=== PATIENT | male | born 1975 | race Caucasian/White ===

== ENCOUNTER 2020-01-06 21:53 | Emergency (ER) | payer MEDICARE, SELFPAY ==
--- NOTE | 2020-01-06 21:57 | XR_ITS ---
WS: [id number] Portable AP upright chest, 01/06/2020 Clinical Data: cough Comparison: Portable chest, 11/15/2017. Findings: No nodules, masses or effusions are seen. The heart is normal. The pulmonary vascularity is not increased. No pneumonia or pneumothorax is seen. XR/XR chest 1V portable [id number] Impression: Negative chest.
[2020-01-06 22:07] VITALS: BP 174/93; PULSE 107; RESP 18; TEMP 37.3; O2SAT 97; BMI 36.5
[2020-01-06 22:31] LABS: Basophils % 0.6 %; Eosinophils # 0.2 10^3/uL (0.0-0.8); Eosinophils % 3.3 %; Hemoglobin 14.2 g/dL (11.7-16.6); Lymphocytes # 1.6 10^3/uL (0.8-4.8); Lymphocytes % 31.5 %; Mean Corpuscular Hemoglobin 29.3 pg (28.0-34.0); Mean Corpuscular Volume 88.7 fL (80-94); Mean Platelet Volume 9.3 fL (7.4-10.4); Monocytes # 0.5 10^3/uL (0.2-0.9); Monocytes % 10.3 %; Neutrophils # 2.8 10^3/uL (1.8-7.7); Neutrophils % 54.1 %; Nucleated Red Blood Cells % 0 %; Platelet Count 165 10^3/cmm (130-400); Red Blood Count 4.85 10^6/uL (4.1-5.3); Red Cell Distribution Width 12.5 % (12.1-15.1); White Blood Count 5.2 10^3/uL (4.0-10.0)
[2020-01-06 23:01] LABS: Alanine Aminotransferase 30 U/L (0-41); Albumin Level 3.9 g/dL (3.5-5.2); Alkaline Phosphatase 88 IU/L (40-130); Anion Gap 16.5 (5-19); Aspartate Amino Transferase 23 U/L (0-40); Blood Urea Nitrogen 13 mg/dL (6-20); Calcium 9.8 mg/dL (8.5-10.5); Carbon Dioxide 26 mmol/L (22-29); Chloride 97 mmol/L (98-107); Glomerular Filtration Rate 104.5 mL/min (90-130); Glucose 279 mg/dL (65-115); NT Pro B Type Natriuretic Pept 25 pg/mL (0-125); Osmolality Calculated 288 mOsm/kg (285-295); Potassium 3.5 mmol/L (3.5-5.1); Sodium 136 mmol/L (136-145); Total Bilirubin 0.6 mg/dL (0.15-1.2); Total Protein 7.9 g/dL (6.6-8.7)
--- NOTE | 2020-01-07 01:01 | ED_ITS ---
Entered by Jie Santizo, acting as scribe for Lenny Navarro MD HPI - SOB/Dyspnea General: Chief Complaint: Shortness of Breath/Dyspnea Stated Complaint: coughing/feels like drowning Time Seen by Provider: 01/07/20 00:54 Source: patient Mode of arrival: ambulatory Limitations: no limitations History of Present Illness: HPI Narrative: 44 yo m came to the er pov for coughing and short of breath. Onset was 4 days ago. Pt states that he has MS. Pt said that he has a productive cough since monday last week. He denies any fevers. States he has had some chest pain from coughing. He has a history of COPD and states he gets bronchitis often. He is in no distress here. elicited complaint: shortness of breath and cough Timing: intermittent Severity: mild Associated symptoms: Reports chest congestion and cough; Deny abdominal pain, chest pain, fever(s), nausea or vomiting Related Data: Home oxygen amount: none Review of Systems General: Reports: other (negative unless marked) Const: Denies: fever, chills, body aches or change in appetite Eyes: Denies: blurry vision or eye discomfort ENMT: Denies: throat pain or dental pain Card: Denies: chest pain Resp: Reports: productive cough and chest congestion GI: Denies: abdominal pain, nausea, vomiting or diarrhea : Denies: painful urination Musc: Denies: neck pain or back pain Skin/Breast: Denies: rash Neuro: Denies: headache Psych: Denies: depression Jared/Lymph: Denies: easy bruising All/Imm: Denies: hives PFSH ED PFSH: Social History (Updated 11/01/19 @ 13:07 by Yamila Menon RN) Smoking and tobacco status: never smoked Alcohol intake: current Alcohol intake frequency: holidays/special occasions only Current occupational status: disabled Course Vital Signs: Vital signs: Vital Signs Temperature 98.7 F 01/07/20 01:14 Pulse Rate 98 01/07/20 01:33 Respiratory Rate 20 H 01/07/20 01:33 Blood Pressure 174/93 01/06/20 22:07 Pulse Oximetry 95 01/07/20 01:33 MDM - SOB/Dyspnea MDM Narrative: Medical decision making narrative: Robby presents here with cough and congestion is likely bronchitis. Patient has no fever and he is in no distress here. Patient's x-ray here shows no pneumonia. Patient's lab work here is normal he is stable for discharge. Patient is to use albuterol inhaler and will put him on a 5-day course of steroids and Keflex. Lab Data: Labs: Lab Results 01/06/20 01/06/20 Range/Units 22:24 22:24 WBC 5.2 (4.0-10.0) 10^3/ uL RBC 4.85 (4.1-5.3) 10^6/u L Hgb 14.2 (11.7-16.6) g/dL Hct 43.0 (42.0-52.0) % MCV 88.7 (80-94) fL MCH 29.3 (28.0-34.0) pg MCHC 33.0 (30.0-36.0) g/dL RDW 12.5 (12.1-15.1) % Plt Count 165 (130-400) 10^3/c mm MPV 9.3 (7.4-10.4) fL Neut % (Auto) 54.1 % Lymph % (Auto) 31.5 % Storey % (Auto) 10.3 % Eos % (Auto) 3.3 % Baso % (Auto) 0.6 % Neut # (Auto) 2.8 (1.8-7.7) 10^3/u L Lymph # (Auto) 1.6 (0.8-4.8) 10^3/u L Storey # (Auto) 0.5 (0.2-0.9) 10^3/u L Eos # (Auto) 0.2 (0.0-0.8) 10^3/u L Baso # (Auto) 0.0 (0.0-0.1) 10^3/u L Nucleated RBC % (a uto) 0 % Nucleated RBCs # 0.0 /100WBC Sodium 136 (136-145) mmol/L Potassium 3.5 (3.5-5.1) mmol/L Chloride 97 L (98-107) mmol/L Carbon Dioxide 26 (22-29) mmol/L Anion Gap 16.5 (5-19) BUN 13 (6-20) mg/dL Creatinine 0.8 (0.7-1.2) mg/dL GFR Calculation 104.5 (90-130) mL/min Glucose 279 H (65-115) mg/dL Calculated Osmolal ity 288 (285-295) mOsm/k g Calcium 9.8 (8.5-10.5) mg/dL Total Bilirubin 0.6 (0.15-1.2) mg/dL AST 23 (0-40) U/L ALT 30 (0-41) U/L Alkaline Phosphata se 88 (40-130) IU/L NT-Pro-B Natriuret Pep 25 (0-125) pg/mL Total Protein 7.9 (6.6-8.7) g/dL Albumin 3.9 (3.5-5.2) g/dL Globulin 4.0 (1.3-4.6) g/dL Imaging Data^: CXR: Attestation: I personally reviewed and interpreted this imaging study as follows: My impression: no acute abnormality Discharge Plan Discharge Patient Disposition: Home, Self-Care Clinical Impression: Bronchitis Condition: Stable Prescriptions: New Keflex 500 mg capsule 500 mg PO Q6H 7 Days Qty: 28 RF: 0 prednisone 50 mg tablet 50 mg PO DAILY Qty: 5 RF: 0 EC-Naprosyn 500 mg tablet,delayed release (DR/EC) 500 mg PO BID PRN (Reason: pain) Qty: 20 RF: 0 No Action metformin 500 mg tablet 500 mg PO BID RF: 0 Discharge Orders: Discharge Order (Routine); Ordered 01/07/20 Ordered By: Lenny Navarro Referrals: Yasmeen Jaimes DO [Primary Care Provider] - 4-7 days Discharge Diet: Advance as tolerated Discharge Activity: Resume usual activity Patient Instructions: Acute Bronchitis (ED) Discharge Date/Time: 01/07/20 01:34 Coding Level of Care Code ED Pipeline Inspector for Chg Fwd The documentation recorded by the Sukhdev gutierrez Stephanie Lyn, accurately reflects the service I personally performed and the decisions made by , Lenny Navarro MD
[2020-01-07 01:14] VITALS: PULSE 100; RESP 20; TEMP 37.1; O2SAT 95
[2020-01-07] MEDS: predniSONE 20 mg Tablet 60 MG PO (01:16)
[2020-01-07] MEDS: ipratropium-albuterol 3 mL Neb INHALATION (01:23)
[2020-01-07 01:25] VITALS: PULSE 110; RESP 20; O2SAT 94
[2020-01-07 01:28] VITALS: PULSE 115
[2020-01-07 01:33] VITALS: PULSE 98; RESP 20; O2SAT 95
== END 2020-01-07 01:34 | disposition home or self-care (01) ==
LOC: ER 01-07 01:10
PROVIDERS: Emergency Provider Emergency Medicine; Family Provider Family Medicine; PCP Family Medicine
DX: J44.9 Chronic obstructive pulmonary disease, unspecified (principal)
CPT/HCPCS: 12345; 36415; 71045; 80053; 83880; 85025; 94640; 99281; J7512

== ENCOUNTER 2020-01-08 05:03 | Inpatient (IN) | payer MEDICARE, SELFPAY ==
[2020-01-08] VITALS (11 sets, daily range): BP systolic 118–148; BP diastolic 64–76; PULSE 87–124; RESP 18–22; TEMP 36.7–37.9; O2SAT 93–96; BMI 36.5
--- NOTE | 2020-01-08 05:08 | ECG_ITS ---
Measurements Intervals Roann Rate: 122 P: 49 OH: 183 QRS: 6 QRSD: 98 T: 44 QT: 318 QTc: 455 SINUS TACHYCARDIA NONSPECIFIC T-WAVE ABNORMALITY ABNORMAL RHYTHM ECG Compared to ECG 11/15/2017 22:26:49 T-wave abnormality now present Electronically Signed On 01-08-2020 9:04:59 CDT by Gio Camejo M.D. [email or web address]
--- NOTE | 2020-01-08 05:08 | XRR_ITS ---
PROCEDURE INFORMATION: Exam: XR Chest, 1 View Exam date and time: 01/08/2020 5:45 AM Age: 44 years old Clinical indication: Cough and shortness of breath; Additional info: Cough, SOB chest pain several days TECHNIQUE: Imaging protocol: XR of the chest Views: Frontal portable upright view of the chest. COMPARISON: CR XR chest 1V portable [id number] 01/06/2020 10:23 PM FINDINGS: Lungs: The pulmonary vasculature remains congested. The lungs are otherwise peripherally clear bilaterally. Pleural space: No pleural effusion. No pneumothorax. Heart/Mediastinum: The heart is normal in size and contour. Mediastinum: Stable. Bones/joints: Stable. XR/XR chest 1V portable [id number] IMPRESSION: Persistent pulmonary vascular congestion.
--- NOTE | 2020-01-08 05:13 | W.ED.SOB ---
Documented by User: Lenny Navarro MD 01/08/20 05:15 HPI - SOB/Dyspnea General: Chief Complaint: Shortness of Breath/Dyspnea Stated Complaint: SOB Time Seen by Provider: 01/08/20 05:05 Source: patient and EMS Mode of arrival: EMS History of Present Illness: HPI Narrative: Patient is a 44-year-old male has a history of MS along with asthma. Patient has had increasing cough that is nonproductive over the last week. Patient seen here yesterday and has not been able to fill any of his medicines that were prescribed. Patient given breathing treatment in route. He denies any fevers. He does have shortness of breath. He denies any pain. Patient denies any worsening or improving factors. MD elicited complaint: cough Pertinent past history: asthma Onset (ago): day(s) Timing: constant Exacerbating factors: nothing Relieving factors: nothing Known history of: asthma Associated symptoms: Deny abdominal pain, chest pain, fever(s), nausea or vomiting Review of Systems Const: Denies: fever, chills, body aches or change in appetite Eyes: Denies: blurry vision or eye discomfort ENMT: Denies: throat pain or dental pain Card: Denies: chest pain Resp: Reports: shortness of breath and non-productive cough GI: Denies: abdominal pain, nausea, vomiting or diarrhea : Denies: painful urination Musc: Denies: neck pain or back pain Skin/Breast: Denies: rash Neuro: Denies: headache Psych: Denies: depression Jared/Lymph: Denies: easy bruising All/Imm: Denies: hives PFSH ED PFSH: Medical History (Updated 01/08/20 @ 11:47 by Keturah Arellano DO) Chronic pain syndrome Diabetes History of coronary artery disease HTN (hypertension) Hx of deep venous thrombosis Hx pulmonary embolism IBS (irritable bowel syndrome) Morbid obesity Obstructive sleep apnea PTSD (post-traumatic stress disorder) Surgical History (Updated 01/08/20 @ 11:47 by Keturah Arellano DO) History of back surgery S/P appendectomy S/P cholecystectomy S/P IVC filter S/P sinus surgery Social History Smoking and tobacco status: never smoked Alcohol intake: current Alcohol intake frequency: holidays/special occasions only Current occupational status: disabled Physical Exam Const: COMMON NORMALS: no apparent distress, oriented x3 and healthy appearing HENMT: COMMON NORMALS: normocephalic and head/scalp atraumatic HEAD & SCALP: normocephalic and atraumatic Eye: COMMON NORMALS: PERRL and EOMs intact bilaterally PUPIL: Yes PERRL Neck/C-Spine: COMMON NORMALS: full ROM and supple Chest: COMMONS NORMALS: inspection of chest normal and palpation of chest normal Resp: COMMON NORMALS: normal respiratory effort, no retractions and no use of accessory muscles AUSCULTATION: wheezes Cardio: COMMON NORMALS: regular rate, regular rhythm and no murmurs RATE: regular rate RHYTHM: regular rhythm GI: COMMON NORMALS: normal to inspection, nondistended, normoactive bowel sounds, soft to palpation, non-tender and no masses PALPATION: Yes soft Extremity: COMMON NORMALS: normal to inspection and full ROM Neuro: COMMON NORMALS: oriented x3, moves all extremities and no focal motor deficits Psych: COMMON NORMALS: mental status grossly normal, thought process normal and cooperative THOUGHT PROCESS: normal thought process Skin: COMMON NORMALS: no rashes or lesions noted and no wounds GENERAL SKIN EXAM: no rashes or lesions noted Course Vital Signs: Vital signs: Vital Signs Temperature 100.3 F H 01/08/20 05:06 Pulse Rate 101 H 01/08/20 12:27 Respiratory Rate 20 H 01/08/20 12:27 Blood Pressure 118/73 01/08/20 12:27 Pulse Oximetry 96 01/08/20 12:27 MDM - SOB/Dyspnea Lab Data: Labs: Lab Results 01/08/20 01/08/20 01/08/20 Range/Units 04:45 04:45 04:45 WBC 6.3 (4.0-10.0) 10^3/ uL RBC 4.73 (4.1-5.3) 10^6/u L Hgb 13.7 (11.7-16.6) g/dL Hct 41.5 L (42.0-52.0) % MCV 87.7 (80-94) fL MCH 29.0 (28.0-34.0) pg MCHC 33.0 (30.0-36.0) g/dL RDW 12.3 (12.1-15.1) % Plt Count 178 (130-400) 10^3/c mm MPV 10.0 (7.4-10.4) fL Neut % (Auto) 53.6 % Lymph % (Auto) 35.7 % Wallace % (Auto) 9.4 % Eos % (Auto) 0.5 % Baso % (Auto) 0.6 % Neut # (Auto) 3.4 (1.8-7.7) 10^3/u L Lymph # (Auto) 2.2 (0.8-4.8) 10^3/u L Wallace # (Auto) 0.6 (0.2-0.9) 10^3/u L Eos # (Auto) 0.0 (0.0-0.8) 10^3/u L Baso # (Auto) 0.0 (0.0-0.1) 10^3/u L Nucleated RBC % (a uto) 0 % Nucleated RBCs # 0.0 /100WBC Sodium 131 L (136-145) mmol/L Potassium 3.4 L (3.5-5.1) mmol/L Chloride 93 L (98-107) mmol/L Carbon Dioxide 25 (22-29) mmol/L Anion Gap 16.4 (5-19) BUN 18 (6-20) mg/dL Creatinine 1.0 (0.7-1.2) mg/dL GFR Calculation 80.8 L (90-130) mL/min Glucose 303 H (65-115) mg/dL Estimat Average Gl ucose 266 Hemoglobin A1c 10.9 H (4.0-6.0) % Calculated Osmolal ity 280 L (285-295) mOsm/k g Calcium 9.4 (8.5-10.5) mg/dL Total Bilirubin 0.6 (0.15-1.2) mg/dL AST 21 (0-40) U/L ALT 25 (0-41) U/L Alkaline Phosphata se 81 (40-130) IU/L NT-Pro-B Natriuret Pep 130 H (0-125) pg/mL Total Protein 7.7 (6.6-8.7) g/dL Albumin 3.8 (3.5-5.2) g/dL Globulin 3.9 (1.3-4.6) g/dL TSH (0.27-4.20) uIU/ mL Influenza Type A A g (Negative) POC Influenza B Ag (Negative) 01/08/20 01/08/20 Range/Units 04:45 06:10 WBC (4.0-10.0) 10^3/ uL RBC (4.1-5.3) 10^6/u L Hgb (11.7-16.6) g/dL Hct (42.0-52.0) % MCV (80-94) fL MCH (28.0-34.0) pg MCHC (30.0-36.0) g/dL RDW (12.1-15.1) % Plt Count (130-400) 10^3/c mm MPV (7.4-10.4) fL Neut % (Auto) % Lymph % (Auto) % Wallace % (Auto) % Eos % (Auto) % Baso % (Auto) % Neut # (Auto) (1.8-7.7) 10^3/u L Lymph # (Auto) (0.8-4.8) 10^3/u L Wallace # (Auto) (0.2-0.9) 10^3/u L Eos # (Auto) (0.0-0.8) 10^3/u L Baso # (Auto) (0.0-0.1) 10^3/u L Nucleated RBC % (a uto) % Nucleated RBCs # /100WBC Sodium (136-145) mmol/L Potassium (3.5-5.1) mmol/L Chloride (98-107) mmol/L Carbon Dioxide (22-29) mmol/L Anion Gap (5-19) BUN (6-20) mg/dL Creatinine (0.7-1.2) mg/dL GFR Calculation (90-130) mL/min Glucose (65-115) mg/dL Estimat Average Gl ucose Hemoglobin A1c (4.0-6.0) % Calculated Osmolal ity (285-295) mOsm/k g Calcium (8.5-10.5) mg/dL Total Bilirubin (0.15-1.2) mg/dL AST (0-40) U/L ALT (0-41) U/L Alkaline Phosphata se (40-130) IU/L NT-Pro-B Natriuret Pep (0-125) pg/mL Total Protein (6.6-8.7) g/dL Albumin (3.5-5.2) g/dL Globulin (1.3-4.6) g/dL TSH 0.95 (0.27-4.20) uIU/ mL Influenza Type A A g Negative (Negative) POC Influenza B Ag Negative (Negative) Discharge Plan Discharge Patient Disposition: Admitted As Inpatient Admit Provider: Keturah Arellano Referrals: Yasmeen Jaimes DO [Primary Care Provider] - Discharge Date/Time: 01/08/20 13:00 Sign Out Sign Out Data: Patient Sign Out occurred on 01/08/20 at 06:03. Patient's care was discussed, and care was transferred from to Errol Lozano DO. Coding Level of Care Code ED Decorative Cutting Machine Tender for Chg Fwd Exam Comprehensive Documented by User: Errol Lozano DO 01/08/20 14:48 HPI - SOB/Dyspnea General: Chief Complaint: Shortness of Breath/Dyspnea Stated Complaint: SOB Time Seen by Provider: 01/08/20 05:05 PFSH ED PFSH: Medical History (Updated 01/08/20 @ 11:47 by Keturah Arellano DO) Chronic pain syndrome Diabetes History of coronary artery disease HTN (hypertension) Hx of deep venous thrombosis Hx pulmonary embolism IBS (irritable bowel syndrome) Morbid obesity Obstructive sleep apnea PTSD (post-traumatic stress disorder) Surgical History (Updated 01/08/20 @ 11:47 by Keturah Arellano DO) History of back surgery S/P appendectomy S/P cholecystectomy S/P IVC filter S/P sinus surgery Social History Smoking and tobacco status: never smoked Alcohol intake: current Alcohol intake frequency: holidays/special occasions only Current occupational status: disabled Course ED course: Patient continue requires oxygen supplementation is mildly tachycardic. He has diminished breath sounds throughout but not a lot of wheezing at this time. Chest x-ray did not show any evidence of pneumonia. He is running little bit of fever as well. I would recommend that we hospitalize the patient monitor because of his hypoxemia treat for asthma empirically may be best to treat for pneumonia as well flu swabs were negative but a question of false negative we will discussed with hospitalist they will admit. Vital Signs: Vital signs: Vital Signs Temperature 100.3 F H 01/08/20 05:06 Pulse Rate 101 H 01/08/20 12:27 Respiratory Rate 20 H 01/08/20 12:27 Blood Pressure 118/73 01/08/20 12:27 Pulse Oximetry 96 01/08/20 12:27 MDM - SOB/Dyspnea Lab Data: Attestation: I reviewed the patient's lab results. Labs: Lab Results 01/08/20 01/08/20 01/08/20 Range/Units 04:45 04:45 04:45 WBC 6.3 (4.0-10.0) 10^3/ uL RBC 4.73 (4.1-5.3) 10^6/u L Hgb 13.7 (11.7-16.6) g/dL Hct 41.5 L (42.0-52.0) % MCV 87.7 (80-94) fL MCH 29.0 (28.0-34.0) pg MCHC 33.0 (30.0-36.0) g/dL RDW 12.3 (12.1-15.1) % Plt Count 178 (130-400) 10^3/c mm MPV 10.0 (7.4-10.4) fL Neut % (Auto) 53.6 % Lymph % (Auto) 35.7 % Wallace % (Auto) 9.4 % Eos % (Auto) 0.5 % Baso % (Auto) 0.6 % Neut # (Auto) 3.4 (1.8-7.7) 10^3/u L Lymph # (Auto) 2.2 (0.8-4.8) 10^3/u L Wallace # (Auto) 0.6 (0.2-0.9) 10^3/u L Eos # (Auto) 0.0 (0.0-0.8) 10^3/u L Baso # (Auto) 0.0 (0.0-0.1) 10^3/u L Nucleated RBC % (a uto) 0 % Nucleated RBCs # 0.0 /100WBC Sodium 131 L (136-145) mmol/L Potassium 3.4 L (3.5-5.1) mmol/L Chloride 93 L (98-107) mmol/L Carbon Dioxide 25 (22-29) mmol/L Anion Gap 16.4 (5-19) BUN 18 (6-20) mg/dL Creatinine 1.0 (0.7-1.2) mg/dL GFR Calculation 80.8 L (90-130) mL/min Glucose 303 H (65-115) mg/dL Estimat Average Gl ucose 266 Hemoglobin A1c 10.9 H (4.0-6.0) % Calculated Osmolal ity 280 L (285-295) mOsm/k g Calcium 9.4 (8.5-10.5) mg/dL Total Bilirubin 0.6 (0.15-1.2) mg/dL AST 21 (0-40) U/L ALT 25 (0-41) U/L Alkaline Phosphata se 81 (40-130) IU/L NT-Pro-B Natriuret Pep 130 H (0-125) pg/mL Total Protein 7.7 (6.6-8.7) g/dL Albumin 3.8 (3.5-5.2) g/dL Globulin 3.9 (1.3-4.6) g/dL TSH (0.27-4.20) uIU/ mL Influenza Type A A g (Negative) POC Influenza B Ag (Negative) 01/08/20 01/08/20 Range/Units 04:45 06:10 WBC (4.0-10.0) 10^3/ uL RBC (4.1-5.3) 10^6/u L Hgb (11.7-16.6) g/dL Hct (42.0-52.0) % MCV (80-94) fL MCH (28.0-34.0) pg MCHC (30.0-36.0) g/dL RDW (12.1-15.1) % Plt Count (130-400) 10^3/c mm MPV (7.4-10.4) fL Neut % (Auto) % Lymph % (Auto) % Wallace % (Auto) % Eos % (Auto) % Baso % (Auto) % Neut # (Auto) (1.8-7.7) 10^3/u L Lymph # (Auto) (0.8-4.8) 10^3/u L Wallace # (Auto) (0.2-0.9) 10^3/u L Eos # (Auto) (0.0-0.8) 10^3/u L Baso # (Auto) (0.0-0.1) 10^3/u L Nucleated RBC % (a uto) % Nucleated RBCs # /100WBC Sodium (136-145) mmol/L Potassium (3.5-5.1) mmol/L Chloride (98-107) mmol/L Carbon Dioxide (22-29) mmol/L Anion Gap (5-19) BUN (6-20) mg/dL Creatinine (0.7-1.2) mg/dL GFR Calculation (90-130) mL/min Glucose (65-115) mg/dL Estimat Average Gl ucose Hemoglobin A1c (4.0-6.0) % Calculated Osmolal ity (285-295) mOsm/k g Calcium (8.5-10.5) mg/dL Total Bilirubin (0.15-1.2) mg/dL AST (0-40) U/L ALT (0-41) U/L Alkaline Phosphata se (40-130) IU/L NT-Pro-B Natriuret Pep (0-125) pg/mL Total Protein (6.6-8.7) g/dL Albumin (3.5-5.2) g/dL Globulin (1.3-4.6) g/dL TSH 0.95 (0.27-4.20) uIU/ mL Influenza Type A A g Negative (Negative) POC Influenza B Ag Negative (Negative) Discharge Plan Discharge Patient Disposition: Admitted As Inpatient Admit Provider: Keturah Arellano Referrals: Yasmeen Jaimes DO [Primary Care Provider] - Discharge Date/Time: 01/08/20 13:00 Sign Out Sign Out Data: Patient Sign Out occurred on 01/08/20 at 06:03. Patient's care was discussed, and care was transferred from to Errol Lozano DO. Coding Level of Care Code ED Decorative Cutting Machine Tender for Chg Fwd Exam Comprehensive
[2020-01-08 05:27] LABS: Basophils % 0.6 %; Eosinophils % 0.5 %; Hematocrit 41.5 % (42.0-52.0); Hemoglobin 13.7 g/dL (11.7-16.6); Lymphocytes # 2.2 10^3/uL (0.8-4.8); Lymphocytes % 35.7 %; Mean Corpuscular Volume 87.7 fL (80-94); Monocytes # 0.6 10^3/uL (0.2-0.9); Monocytes % 9.4 %; Neutrophils # 3.4 10^3/uL (1.8-7.7); Neutrophils % 53.6 %; Nucleated Red Blood Cells % 0 %; Platelet Count 178 10^3/cmm (130-400); Red Blood Count 4.73 10^6/uL (4.1-5.3); Red Cell Distribution Width 12.3 % (12.1-15.1); White Blood Count 6.3 10^3/uL (4.0-10.0)
[2020-01-08 05:55] LABS: Alanine Aminotransferase 25 U/L (0-41); Albumin Level 3.8 g/dL (3.5-5.2); Alkaline Phosphatase 81 IU/L (40-130); Anion Gap 16.4 (5-19); Aspartate Amino Transferase 21 U/L (0-40); Blood Urea Nitrogen 18 mg/dL (6-20); Calcium 9.4 mg/dL (8.5-10.5); Carbon Dioxide 25 mmol/L (22-29); Chloride 93 mmol/L (98-107); Globulin 3.9 g/dL (1.3-4.6); Glomerular Filtration Rate 80.8 mL/min (90-130); Glucose 303 mg/dL (65-115); NT Pro B Type Natriuretic Pept 130 pg/mL (0-125); Osmolality Calculated 280 mOsm/kg (285-295); Potassium 3.4 mmol/L (3.5-5.1); Sodium 131 mmol/L (136-145); Total Bilirubin 0.6 mg/dL (0.15-1.2); Total Protein 7.7 g/dL (6.6-8.7)
[2020-01-08] MEDS: ipratropium-albuterol 3 mL Neb INHALATION ×2 (05:56→12:21)
[2020-01-08 06:38] LABS: Influenza A by IFA Negative (Negative); Influenza B by IFA Negative (Negative)
--- NOTE | 2020-01-08 07:18 | CT_ITS ---
WS: [id number] CTA OF THE CHEST WITH PULMONARY EMBOLISM PROTOCOL TECHNIQUE: High-resolution contrast enhanced CTA of the chest with coronal and sagittal reformatted i mages with pulmonary embolism protocol. MIP images are also reviewed. Somewhat suboptimal contrast madelyn mikaela. CLINICAL INFORMATION: tachycardia, dyspnea, hypoxia COMPARISON: None. DLP: 1763.[address] scans at [facility] use at least one of these dose optimization techniques: automat ed exposure control; mA and/or kV adjustment per patient size (includes targeted exams where dose is matched to clinical indication); or iterative reconstruction. FINDINGS: Proximal main pulmonary arteries are normal. Segmental and subsegmental pulmonary arteries appear pat ent. No visualized filling defects to indicate pulmonary embolus. Normal caliber thoracic aorta. Numerous anterior mediastinal lymph nodes not pathologically enlarged unchanged from previous. No hilar lymphadenopathy. No acute pulmonary infiltrates. Lungs are well aerated. No axillary lymphadenopathy. Hepatomegaly with diffuse fatty infiltration of the liver. Adrenal glands are normal. Attempted Errol Lozano DO at 01/08/2020 8:[address]/CT angio chest PE protcl [id number] IMPRESSION: 1. No evidence for pulmonary embolus. 2. Normal caliber thoracic aorta. 3. No acute pulmonary infiltrates. Lungs well aerated. 4. Hepatomegaly with diffuse infiltration of the liver.
[2020-01-08] MEDS: iohexol 350 mg/mL 100 mL Btl IV ×2 (08:13→08:14)
[2020-01-08] MEDS: piperacillin-tazobactam 3.375 GM in sodium chloride 0.9% (plus) 50 ML IV (09:56)
[2020-01-08] MEDS: morphine 4 mg/mL SDV 1 mL 2 MG IVP (11:07)
--- NOTE | 2020-01-08 11:42 | P.HP_ITS ---
Providers/Chief Complaint Primary Care Provider: Yasmeen Jaimes DO Chief Complaint: SOB History of Present Illness Robby Ramirez is a 44 year old male that presented to the emergency department today for increasing shortness of breath and continued cough. Reported that he has been having fever for several days. Increased cough for the past 4 days. Reports thick sputum production, no hemoptysis. Denies any sick contacts. Patient reported that he is not been seen by his primary care provider in an extended period of time. Reported that the only medication that he takes occasionally is metformin. Denies wearing any oxygen at home. Has known obstructive sleep apnea but reports not wearing a CPAP Review of Systems Const: Denies: fever or chills Eyes: Denies: change in vision ENMT: Reports: nasal congestion Card: Denies: chest pain, palpitations or edema Resp: Reports: shortness of breath and productive cough; Denies: coughing up blood GI: Denies: abdominal pain, nausea, vomiting, diarrhea, constipation, blood in stool or black tarry stool : Denies: painful urination or blood in urine Musc: Denies: extremity pain or muscle cramps Skin/Breast: Denies: rash or new lesion Neuro: Denies: headache or dizziness Psych: Denies: anxiety or depression Endo: Denies: excessive urination or hot flashes Jared/Lymph: Denies: easy bruising or easy bleeding Medications/Allergies Home Medications Medication Instructions Recorded Confirmed Last Taken Type No Known Home Medications 01/08/20 01/08/20 Unknown History Allergies Allergy/AdvReac Type Severity Reaction Status Date / Time chlorpromazine Allergy Unknown Unknown Verified 01/06/20 22:11 [From Thorazine] heparin Allergy Unknown Unknown Verified 01/06/20 22:11 olanzapine [From Zyprexa] Allergy Unknown Unknown Verified 01/06/20 22:11 phenytoin [From Dilantin] Allergy Unknown Unknown Verified 01/06/20 22:11 Sulfa (Sulfonamide Allergy Unknown Unknown Verified 01/06/20 22:11 Antibiotics) warfarin [From Coumadin] Allergy Unknown Unknown Verified 01/06/20 22:11 PFSH Acute PFSH: Medical History (Updated 01/08/20 @ 11:47 by Keturah Arellano DO) Chronic pain syndrome Diabetes History of coronary artery disease HTN (hypertension) Hx of deep venous thrombosis Hx pulmonary embolism IBS (irritable bowel syndrome) Morbid obesity Obstructive sleep apnea PTSD (post-traumatic stress disorder) Surgical History (Updated 01/08/20 @ 11:47 by Keturah Arellano DO) History of back surgery S/P appendectomy S/P cholecystectomy S/P IVC filter S/P sinus surgery Social History Smoking and tobacco status: never smoked Alcohol intake: current Alcohol intake frequency: holidays/special occasions only Current occupational status: disabled Supplemental [facility] Information: Family history unknown, adopted Vitals/I&O/Wt Last Vital Signs Temp 100.3 F H 01/08/20 05:06 Pulse 124 H 01/08/20 06:00 Resp 20 H 01/08/20 10:53 BP 133/70 01/08/20 05:06 Pulse Ox 93 01/08/20 10:53 Weight last 48 hrs Weight 136.078 kg Physical Exam Const: COMMON NORMALS: oriented x3 and alert GENERAL APPEARANCE: cooperative ORIENTATION/CONSCIOUSNESS: Yes awake, Yes oriented to person, Yes oriented to place and Yes oriented to time HENMT: COMMON NORMALS: normocephalic and head/scalp atraumatic HEAD & SCALP: normocephalic and atraumatic Eye: COMMON NORMALS: PERRL PUPIL: Yes PERRL Neck/C-Spine: COMMON NORMALS: supple GENERAL: Yes normal visual inspection Resp: OTHER: Diminished breath sounds bilaterally, coarse breath sounds bilaterally Cardio: COMMON NORMALS: regular rhythm and no murmurs RATE: tachycardic RHYTHM: regular rhythm GI: COMMON NORMALS: soft to palpation and non-tender INSPECTION: No abdominal distension AUSCULTATION: Yes normoactive bowel sounds PALPATION: Yes soft Extremity: NARRATIVE EXTREMITY EXAM: Nonpitting edema in the lower extremities bilaterally, chronic venous stasis changes in the lower extremities bilaterally Neuro: COMMON NORMALS: oriented x3, CN's II-XII intact bilaterally, moves all extremities and no focal motor deficits SENSORIUM/ORIENTATION: Yes alert, Yes oriented to person, Yes oriented to place and Yes oriented to time SPEECH: speech normal Psych: COMMON NORMALS: mental status grossly normal Skin: COMMON NORMALS: no rashes or lesions noted GENERAL SKIN EXAM: no rashes or lesions noted Data : 01/08/20 04:45 01/08/20 04:45 Micro: Microbiology 01/08/20 09:40 Blood Culture - Preliminary Blood SPECIMEN COLLECTED 01/08/20 09:47 Blood Culture - Preliminary Blood SPECIMEN COLLECTED CTA Chest: Radiologist's impression: IMPRESSION: 1. No evidence for pulmonary embolus. 2. Normal caliber thoracic aorta. 3. No acute pulmonary infiltrates. Lungs well aerated. 4. Hepatomegaly with diffuse infiltration of the liver. CXR: I personally reviewed and interpreted this imaging study as follows: Radiologist's impression: IMPRESSION: Persistent pulmonary vascular congestion. A&P Assessment and plan (1) Asthma exacerbation: Due to concern for acute bronchitis Patient requiring supplemental oxygen, 3 L by nasal cannula at this time Placed on observation Wean oxygen as tolerated Patient has known obstructive sleep apnea and continues to be noncompliant with CPAP Oxygen per protocol, respiratory therapy to assess and treat, continue on doxycycline. Hold on prednisone at this time and monitor respiratory status closely Status: Acute Code(s): J45.901 - Unspecified asthma with (acute) exacerbation Additional A&P Information Concern for influenza with fever, tachycardia, tachypnea, negative chest x-ray. Influenza swab is negative, concerned that false negative results. We will go ahead and treat with Tamiflu 75 mg twice daily and continue to wean oxygen as tolerated. Obstructive sleep apnea: No longer compliant with CPAP Coronary artery disease: Nonobstructive according to patient report, he reports history of cardiac cath however no stent placement, noncompliant with all medications History of DVT and PE with a reported IVC filter: CTA of the chest negative for pulmonary embolism. Diabetes mellitus type 2, poorly controlled: Only taking metformin, will check h emoglobin A1c Reported history of multiple sclerosis: He stated he is followed by Dr. Cruz, neurology, no longer on any medications History of traumatic brain injury in 2009 DVT prophylaxis: Lovenox Diet: Carbohydrate consistent Full code Attestations Medical Necessity Statement*: Observation due to concern for acute bronchitis with hypoxia. Observation, expected stay less than 2 midnights Coding Level of Care Code Acute Lead Burner Helper for Tori Rey Diagnoses Asthma exacerbation J45.901
[2020-01-08 12:15] LABS: ABG PCO2 38.8 mmHg (35-45); ABG PH Result 7.35 (7.35-7.45); Alveolar-Arterial Oxygen Gradi 33.8 mmHg (5-10); Arterial Blood Gas Hematocrit 44.7 % (42-52); Base Excess ABG -3.9 mmol/L (-2.0-2.0); Blood Gas Allen Test Pos; Blood Gas LPM 4.5 %; Blood Gas Sample Site Radial, right; Blood Gas Sample Type Arterial; Carboxyhemoglobin 0.8 %THgb (0.4-20.1); HCO3 ABG 21.3 mmol/L (22-26); HGB O2 Sat 92.5 % (95-100); Ionized Calcium Level - ABG 1.1 mmol/L (1.1-1.4); Methemoglobin 0.2 % (0.4-1.5); Oxygen Device NC; Oxygen Saturation ABG 93.5; PO2 ABG 66.7 mmHg (80.0-100.0); Potassium Level - ABG 4.1 mmol/L (3.5-5.0); Total Hemoglobin 14.6 g/dL (14-18)
[2020-01-08] MEDS: budesonide 0.5 mg/2 mL Neb INHALATION (12:20)
[2020-01-08 12:41] LABS: Estmated Average Glucose 266; Hemoglobin A1C 10.9 % (4.0-6.0)
[2020-01-08 12:46] LABS: Thyroid Stimulating Hormone 0.95 uIU/mL (0.27-4.20)
[2020-01-08 15:00] LABS: Glucose Point of Care 475 mg/dL (70-110)
[2020-01-08] MEDS: sodium chloride 0.9% 1,000 ML 75 ML IV (15:14)
[2020-01-08 17:58] LABS: Glucose Point of Care 437 mg/dL (70-110)
[2020-01-08] MEDS: oseltamivir phosphate 75 mg Capsule PO (18:41)
[2020-01-08] MEDS: doxycycline 100 mg Tablet PO (18:41)
[2020-01-08] MEDS: insulin glargine 100 units/1 mL 10 UNIT SUBCUT (18:42)
--- NOTE | 2020-01-08 18:46 | PC.NURSE ---
pt alana sugar was 437 at 1745, dr maldonado informed and ordered 20 units of novolog and to give 10 units of lantus now. will pass on to next shift to check in 2 hours.
[2020-01-08] MEDS: HYDROcodone-acetaminophen 5-325 mg Tablet 1 TAB PO (20:01)
[2020-01-08 21:52] LABS: Glucose Point of Care 374 mg/dL (70-110)
[2020-01-09] VITALS: BP 133/76; PULSE 94; RESP 22; TEMP 36.9; O2SAT 93
[2020-01-09] MEDS: HYDROcodone-acetaminophen 5-325 mg Tablet 1 TAB PO (00:39)
[2020-01-09 00:55] LABS: Glucose Point of Care 353 mg/dL (70-110)
[2020-01-09 03:33] VITALS: BP 136/79; PULSE 86; RESP 22; TEMP 36.6; O2SAT 91
[2020-01-09] MEDS: sodium chloride 0.9% 1,000 ML 75 ML IV (04:50)
[2020-01-09 06:19] LABS: Hematocrit 38.1 % (42.0-52.0); Hemoglobin 12.7 g/dL (11.7-16.6); Lymphocytes # 1.2 10^3/uL (0.8-4.8); Lymphocytes % 19.9 %; Mean Corpuscular HGB Conc 33.3 g/dL (30.0-36.0); Mean Corpuscular Hemoglobin 29.3 pg (28.0-34.0); Mean Corpuscular Volume 87.8 fL (80-94); Mean Platelet Volume 9.5 fL (7.4-10.4); Monocytes # 0.7 10^3/uL (0.2-0.9); Monocytes % 11.4 %; Neutrophils % 68.4 %; Nucleated Red Blood Cells % 0 %; Platelet Count 158 10^3/cmm (130-400); Red Blood Count 4.34 10^6/uL (4.1-5.3); Red Cell Distribution Width 12.4 % (12.1-15.1); White Blood Count 5.9 10^3/uL (4.0-10.0)
[2020-01-09 06:34] LABS: Blood Urea Nitrogen 18 mg/dL (6-20); Calcium 8.9 mg/dL (8.5-10.5); Carbon Dioxide 22 mmol/L (22-29); Chloride 101 mmol/L (98-107); Glucose 329 mg/dL (65-115); Osmolality Calculated 291 mOsm/kg (285-295); Sodium 136 mmol/L (136-145)
[2020-01-09 07:42] LABS: Glucose Point of Care 308 mg/dL (70-110)
[2020-01-09 07:55] VITALS: BP 116/73; PULSE 81; RESP 22; TEMP 35.9; O2SAT 96
[2020-01-09] MEDS: doxycycline 100 mg Tablet PO (08:19)
[2020-01-09] MEDS: oseltamivir phosphate 75 mg Capsule PO (08:19)
--- NOTE | 2020-01-09 10:41 | PM.PN ---
Subjective Subjective: Interval history: Patient awake in bed at time of exam. Sitting at the edge of bed. Reported continued cough and shortness of breath. Reported productive cough Vitals/I&O/Wt Last Vital Signs Temp 96.7 F L 01/09/20 07:55 Pulse 81 01/09/20 07:55 Resp 22 H 01/09/20 07:55 BP 116/73 01/09/20 07:55 Pulse Ox 96 01/09/20 07:55 01/08/20 01/09/20 01/09/20 22:59 06:59 14:59 Intake Total 960 / 960 1960 / 2920 360 / 360 Output Total 1250 / 1250 Balance 960 / 960 710 / 1670 360 / 360 Weight last 48 hrs Weight 151.545 kg Weight 136.078 kg Physical Exam Const: COMMON NORMALS: oriented x3 and alert GENERAL APPEARANCE: cooperative ORIENTATION/CONSCIOUSNESS: Yes awake, Yes oriented to person, Yes oriented to place and Yes oriented to time HENMT: COMMON NORMALS: normocephalic and head/scalp atraumatic HEAD & SCALP: normocephalic and atraumatic Eye: COMMON NORMALS: PERRL PUPIL: Yes PERRL Neck/C-Spine: COMMON NORMALS: supple GENERAL: Yes normal visual inspection Resp: OTHER: Diminished breath sounds bilaterally with wheezing in the bases Cardio: COMMON NORMALS: regular rhythm and no murmurs RATE: tachycardic RHYTHM: regular rhythm GI: COMMON NORMALS: soft to palpation and non-tender INSPECTION: No abdominal distension AUSCULTATION: Yes normoactive bowel sounds PALPATION: Yes soft Extremity: NARRATIVE EXTREMITY EXAM: Nonpitting edema in the lower extremities bilaterally, chronic venous stasis changes in the lower extremities bilaterally Neuro: COMMON NORMALS: oriented x3, CN's II-XII intact bilaterally, moves all extremities and no focal motor deficits SENSORIUM/ORIENTATION: Yes alert, Yes oriented to person, Yes oriented to place and Yes oriented to time SPEECH: speech normal Psych: COMMON NORMALS: mental status grossly normal Skin: COMMON NORMALS: no rashes or lesions noted GENERAL SKIN EXAM: no rashes or lesions noted Data : 01/09/20 06:00 01/09/20 06:00 Micro: Microbiology 01/08/20 09:47 Blood Culture - Preliminary Blood NEGATIVE TO DATE 01/08/20 09:40 Blood Culture - Preliminary Blood NEGATIVE TO DATE A&P Assessment and plan (1) Asthma exacerbation: Respiratory therapy to assess and treat Oxygen per protocol, currently on 3 L by nasal cannula, will continue to wean as tolerated We will start on Solu-Medrol 60 mg every 6 hours x3 doses then transition to prednisone due to worsening wheezing on exam today Continue on doxycycline Status: Acute Code(s): J45.901 - Unspecified asthma with (acute) exacerbation Additional A&P Information Concern for influenza with fever, tachycardia, tachypnea, negative chest x-ray. Influenza swab is negative, concerned that false negative results. Continue treatment with Tamiflu 75 mg twice daily Obstructive sleep apnea: No longer compliant with CPAP Coronary artery disease: Nonobstructive according to patient report, he reports history of cardiac cath however no stent placement, noncompliant with all medications History of DVT and PE with a reported IVC filter: CTA of the chest negative for pulmonary embolism. Diabetes mellitus type 2, poorly controlled: A1c greater than 11. Started on Lantus, increased dose today and given additional dose this morning to control elevated blood sugars. Blood sugars will continue to be significantly elevated due to initiation of steroids due to above. Reported history of multiple sclerosis: He stated he is followed by Dr. Cruz, neurology, no longer on any medications History of traumatic brain injury in 2009 DVT prophylaxis: Lovenox Diet: Carbohydrate consistent Full code Attestations Medical Necessity Statement*: Patient requires continued hospitalization due to concern for oxygen requirements with concern for asthma exacerbation, concern for influenza. Change to inpatient admission Coding Level of Care Code Acute Employee Communications Specialist for Tori Rey Diagnoses Asthma exacerbation J45.901
[2020-01-09 11:05] LABS: Glucose Point of Care 325 mg/dL (70-110)
[2020-01-09 11:48] VITALS: BP 119/73; PULSE 88; RESP 22; TEMP 36.8; O2SAT 93
[2020-01-09] MEDS: insulin glargine 100 units/1 mL 10 UNIT SUBCUT (11:55)
[2020-01-09] MEDS: enoxaparin 40 mg/0.4 mL Syringe SUBCUT (11:57)
--- NOTE | 2020-01-09 12:01 | PC.CHAP ---
Pastoral Care Encounter/Spiritual Assessment Type of Contact [] Declined radiation engineer visit [] Patient/Family/Request visit [] Outpatient visit [] Follow-up visit [] Physician referral [] Code/Alert [x] Routine visit [] Staff referral [] Actively dying [] Patient sleeping [] Family support [] [] Out of room [] Palliative care [] [] Receiving care in room [] Pre-surgical visit [] Trauma [] Long length of stay [] ICU visit [] Other: Relational/Emotional Strength [] Patient feels connected with others/family/visitors/staff [x] Distress [] Loneliness/isolation [] Abandonment Spirituality of Patient [] Person of Heena [] Attends Evangelical of their Heena [] Believes in Prayer [] Reads Bible or Zoroastrianism materials [x] There are Spiritual issues to be addressed Thinner Sprayer Interventions [x] Prayer [x] Active listening [x] Non-anxious presence x[x] Spiritual/emotional support [] Crisis/trauma care [x] Spiritual counseling [] Bereavement support [] Provided bereavement packet [] Provided Bible/devotional materials [] Provided toy/stuffed animal, coloring book to patient or family member [] Provided Communion [] Anointing/[place] [] Salvation [] Completed spiritual assessment [] Other: Impact on Illness or Injury [] Angry [] Fearful [] Anxious [] Often cries [] Exhaustion [] Unable to work [] Unable to attend gnosticist [] Unable to walk/stand [] Unable to read [] Unable to drive [] Unable to eat/drink [] Unable to sleep [] Unable to be with family [] Patient intubated [x] Other: Summary Patient expressed that he is primarily wheelchair bound and relies upon his friends for transportation needs. Time spent with patient 5 minutes
[2020-01-09 13:26] VITALS: BP 136/72; PULSE 83; RESP 32; TEMP 36.7; O2SAT 93
[2020-01-09 13:26] LABS: Glucose Point of Care 306 mg/dL (70-110)
--- NOTE | 2020-01-09 13:29 | XR_ITS ---
WS: [id number] Chest 2 views, AP and lateral, 01/09/2020 Clinical Data: shortness of breath Comparison: Portable chest, 01/08/2020. Findings: No nodules, masses or effusions are seen. The heart is slightly enlarged. The pulmonary vas cularity is not increased. No pneumonia or pneumothorax is seen. Monitor leads on the chest wall. XR/XR chest 2V* [id number] Impression: Cardiomegaly.
[2020-01-09 14:27] VITALS: BP 136/72; PULSE 83; RESP 32; TEMP 36.7; O2SAT 93
== END 2020-01-09 14:37 | disposition home or self-care (01) | DRG 203 ==
LOC: ER 12:28 → MEDSURG 12:40
PROVIDERS: Emergency Medicine; Admitting Provider Family Medicine; Emergency Provider Family Medicine; Family Provider Family Medicine; PCP Family Medicine; Visit Provider Family Medicine
DX: J45.901 Unspecified asthma with (acute) exacerbation (principal); G47.33 Obstructive sleep apnea (adult) (pediatric); I25.10 Atherosclerotic heart disease of native coronary artery without angina pectoris; E11.65 Type 2 diabetes mellitus with hyperglycemia
CPT/HCPCS: 12345; 36415; 36416; 36600; 71045; 71046; 71275; 80048; 80051; 80053; 82810; 82962; 83036; 83880; 83986; 84443; 85025; 87040; 87804; 93005; 94640; 94664; 96372; 96374; 96375; 99281; 99283; G0378; J1650; J1815; J2270; J2543; J2930; J7030; J7512; J7611; J7626; Q9967

== ENCOUNTER 2020-03-27 20:46 | Emergency (ER) | payer MEDICARE, SELFPAY ==
[2020-03-27 20:54] VITALS: BP 133/86; PULSE 130; RESP 24; TEMP 36.2; O2SAT 94; BMI 36.5
--- NOTE | 2020-03-27 21:01 | ED_ITS ---
HPI - General Adult General: Chief complaint: General Medical Stated complaint: hand pain Time Seen by Provider: 03/27/20 21:01 Source: patient Mode of arrival: ambulatory Limitations: no limitations History of Present Illness: HPI narrative: Patient comes in for a ulcer to his third digit on his left foot, and pain to the left thumb. Patient reports that he was arrested for an outstanding warrant in [place]. Patient states that ended up being a misunderstanding but he had to spend time in group home and during that time his toe was injured along with his hand during the incarceration. Patient has diabetes and neuropathy. Patient denies any fever. Patient appears in no pain. Review of Systems General: Reports: 10 or more systems reviewed and unremarkable except in HPI and below Musc: Reports: joint pain (Left thumb MCP) Skin/Breast: Reports: changing lesions [facility] ED PFSH: Medical History (Updated 03/27/20 @ 21:36 by NATACHA Blair) Chronic pain syndrome Diabetes History of coronary artery disease HTN (hypertension) Hx of deep venous thrombosis Hx pulmonary embolism IBS (irritable bowel syndrome) Morbid obesity Obstructive sleep apnea PTSD (post-traumatic stress disorder) Surgical History (Updated 01/08/20 @ 11:47 by Keturah Arellano DO) History of back surgery S/P appendectomy S/P cholecystectomy S/P IVC filter S/P sinus surgery Social History Smoking and tobacco status: never smoked Alcohol intake: current Alcohol intake frequency: holidays/special occasions only Current occupational status: disabled Physical Exam Const: COMMON NORMALS: no acute distress and patient oriented x3 GENERAL APPEARANCE: cooperative HENMT: COMMON NORMALS: normocephalic, TM's normal bilaterally and Normal external nose present HEAD & SCALP: normal to inspection and normocephalic NOSE: Normal external nose present TYMPANIC MEMBRANE: TM's normal bilaterally MOUTH: Normal oral and palatal mucosa present THROAT: posterior oropharynx normal Eye: GENERAL EYE: appearance normal, both eyes and all related structures Neck/C-Spine: COMMON NORMALS: full ROM Lymph: LYMPHATIC: no lymphadenopathy noted Chest: COMMONS NORMALS: normal inspection of the chest Resp: COMMON NORMALS: normal respiratory effort EFFORT & INSPECTION: Yes able to speak in complete sentences Cardio: COMMON NORMALS: regular rate and regular rhythm RATE: regular rate RHYTHM: regular rhythm GI: COMMON NORMALS: non-tender : COMMON NORMALS: Yes no CVA tenderness BLADDER/KIDNEY EXAM: Yes no CVA tenderness Back/Pelvis: COMMON NORMALS: no CVA tenderness and thoracic and lumbar spine normal to inspection Extremity: NARRATIVE EXTREMITY EXAM: No obvious deformity to the left hand. Left foot notes some ulceration to the distal third digit with surrounding area of redness. Pulses are intact to the left foot. Neuro: COMMON NORMALS: patient oriented x3 and moves all extremities Psych: COMMON NORMALS: mental status grossly normal and cooperative Skin: COMMON NORMALS: no rashes or lesions noted GENERAL SKIN EXAM: no rashes or lesions noted Course Vital Signs: Vital signs: Vital Signs Temperature 97.2 F L 03/27/20 20:54 Pulse Rate 126 H 03/27/20 21:13 Respiratory Rate 18 03/27/20 21:13 Blood Pressure 107/76 03/27/20 21:13 Pulse Oximetry 96 03/27/20 21:13 MDM - General Adult MDM Narrative: Medical decision making narrative: Patient comes in for evaluation of injury to the left thumb, and an ulcer and erythema to the left third digit of the foot. Exam noted normal range of motion of the left thumb without any crepitus or deformity. Examination of the left foot noted distal ulceration of the third digit of the left foot with surrounding redness to the toe. Prompt capillary refill is noted dorsal pedal pulse pulses are intact. No significant swelling to the extremity is noted. Differential diagnosis includes but not limited to fracture, sprain, cellulitis, osteomyelitis, abscess. X-ray of the hand noted no fracture or dislocation. X-ray of the foot noted no osteomyelitis or fracture. Reviewed exam with patient recommendations for treatment with Cipro for cellulitis of the foot and conservative treatment for sprain of the left thumb. Patient reported understanding of care and need for follow-up. Discharge Plan Discharge Patient Disposition: Home, Self-Care Clinical Impression: Abscess or cellulitis of foot Left thumb sprain Qualifiers: Encounter type: initial encounter Sprain of finger site: metacarpophalangeal joint Qualified Code(s): S63.642A - Sprain of metacarpophalangeal joint of left thumb, initial encounter Condition: Stable Prescriptions: New ciprofloxacin HCl 500 mg tablet 500 mg PO BID Qty: 20 RF: 0 Discharge Orders: Discharge Order (Routine); Ordered 03/27/20 Ordered By: Manolo Aragon Referrals: Yasmeen Jaimes DO [Primary Care Provider] - Discharge Diet: Usual diet Discharge Activity: Increase activity as tolerated Patient Instructions: Finger Sprain (ED) Activity Restrictions/Additional Instructions: Take antibiotics as directed. Drink plenty of water with medications. Activity as tolerated. Monitor wound for worsening symptoms. Return to emergency room for high fever or new concerns. Follow-up with primary care in 1 week. Coding Level of Care Code ED Haz Tech for Chg Fwd Exam Comprehensive
--- NOTE | 2020-03-27 21:05 | XRR_ITS ---
PROCEDURE INFORMATION: Exam: XR Left Hand Exam date and time: 03/27/2020 9:27 PM Age: 44 years old Clinical indication: Injury or trauma; Injury history: Not specified; Initial encounter; Blunt trauma (contusions or hematomas; Hand; Left TECHNIQUE: Imaging protocol: XR Left hand. Views: 3 or more views. COMPARISON: No relevant prior studies available. FINDINGS: Bones/joints: Normal. No fracture. Soft tissues: Normal. XR/XR hand LT min 3V* [id number] IMPRESSION: No acute findings.
--- NOTE | 2020-03-27 21:05 | XRR_ITS ---
PROCEDURE INFORMATION: Exam: XR Left Foot Complete Exam date and time: 03/27/2020 9:27 PM Age: 44 years old Clinical indication: Other: Wound; Additional info: Wound infection, 2nd toe TECHNIQUE: Imaging protocol: XR Left foot. Views: 3 or more views. COMPARISON: No relevant prior studies available. FINDINGS: Bones/joints: Normal. No fracture. No definite destructive process. Soft tissues: Normal. XR/XR foot LT min 3V* [id number] IMPRESSION: No acute findings.
[2020-03-27 21:13] VITALS: BP 107/76; PULSE 126; RESP 18; O2SAT 96
[2020-03-27] MEDS: ciprofloxacin 500 mg Tablet PO (21:43)
[2020-03-27 22:07] VITALS: BP 134/100; PULSE 124; RESP 18; O2SAT 97
== END 2020-03-27 22:09 | disposition home or self-care (01) ==
PROVIDERS: Emergency Provider Nurse Practitioner Family; PCP Family Medicine
DX: L03.116 Cellulitis of left lower limb (principal); S63.642A Sprain of metacarpophalangeal joint of left thumb, initial encounter; X58.XXXA Exposure to other specified factors, initial encounter; E11.9 Type 2 diabetes mellitus without complications; I10 Essential (primary) hypertension
CPT/HCPCS: 12345; 73130; 73630; 99281; 99283

== ENCOUNTER → 2020-04-01 15:22 | Outpatient (BNVA) | payer MEDICARE, SELFPAY | PROVIDERS: PCP Family Medicine; Visit Provider Specialist | DX: E11.9 Type 2 diabetes mellitus without complications (principal); I10 Essential (primary) hypertension; E78.5 Hyperlipidemia, unspecified; E03.9 Hypothyroidism, unspecified; Z79.899 Other long term (current) drug therapy | CPT/HCPCS: 80053; 80061; 80307; 81000; 83036; 84443; 85025; 99213 ==

== ENCOUNTER 2020-04-17 15:31 | Emergency (ER) | payer MEDICARE, SELFPAY ==
[2020-04-17 15:41] VITALS: BP 164/115; PULSE 93; RESP 18; TEMP 36.6; O2SAT 97; BMI 40.1
--- NOTE | 2020-04-17 15:43 | ECG_ITS ---
[facility] ED Test Date: 2020-04-17 Pat Name: Robby Ramirez Department: Room: Gender: Male Staff Radiation Therapist: : 1975 Requested By: Allen Santos I Order Number: [id number] Emily MD: Tammi Lubin M.D. Measurements Intervals [place] Rate: 91 P: 18 CO: 179 QRS: 3 QRSD: 96 T: 21 QT: 345 QTc: 424 Interpretive Statements SINUS RHYTHM Non specific T wave abnormality Compared to ECG 01/08/2020 05:27:48 Sinus tachycardia no longer present Electronically Signed On 04-18-2020 22:53:25 CDT by Tammi Lubin M.D. [id number]
[2020-04-17 15:54] LABS: Basophils % 1.2 %; Eosinophils % 0.6 %; Hematocrit 39.1 % (42.0-52.0); Hemoglobin 12.9 g/dL (11.7-16.6); Lymphocytes # 1.3 10^3/uL (0.8-4.8); Lymphocytes % 38.8 %; Mean Corpuscular Hemoglobin 29.3 pg (28.0-34.0); Mean Corpuscular Volume 88.7 fL (80-94); Mean Platelet Volume 8.6 fL (7.4-10.4); Monocytes # 0.5 10^3/uL (0.2-0.9); Monocytes % 15.8 %; Neutrophils # 1.4 10^3/uL (1.8-7.7); Neutrophils % 43.3 %; Nucleated Red Blood Cells % 0 %; Platelet Count 129 10^3/cmm (130-400); Red Blood Count 4.41 10^6/uL (4.1-5.3); Red Cell Distribution Width 13.2 % (12.1-15.1); White Blood Count 3.3 10^3/uL (4.0-10.0)
[2020-04-17 15:59] VITALS: O2SAT 100
[2020-04-17] MEDS: nitroglycerin 0.4 mg sublingual Tablet SUBLINGUAL (16:10)
[2020-04-17 16:13] LABS: D Dimer 7.06 ug/mIFEU (0-0.59)
[2020-04-17 16:18] LABS: Troponin(5th) Baseline 7 ng/L (0-15)
--- NOTE | 2020-04-17 16:30 | ED_ITS ---
HPI - Chest Pain General: Chief Complaint: Chest Pain Stated Complaint: cp Time Seen by Provider: 04/17/20 15:35 Source: patient Mode of arrival: ambulatory Limitations: no limitations History of Present Illness: HPI narrative: 44-year-old male presented to the emergency department with chest pain that started less than 30 minutes ago. He states that he was on the phone with a prosecutor talking about pressing charges on somebody who stole something from him when he did develop left-sided chest pain radiating to his neck. He has a prior history of congestive heart failure, RI, strokes, but he is not taking his medications. He is quite nonchalant about this and when I asked him why he is not taking his medications just shrugged his shoulders complaint: chest pain Pertinent past history: coronary artery disease and prior RI Onset (ago): minute(s) (30) Timing of current episode: constant Prior episodes: No Onset: during exertion Pain location: left chest Pain radiation: neck Associated symptoms: Deny abdominal pain, dyspnea, fever(s), nausea, palpitations or vomiting Treatment prior to arrival: none Review of Systems General: Reports: 10 or more systems reviewed and unremarkable except in HPI and below Const: Denies: fever(s), chills or body aches Eyes: Denies: change in vision or blurry vision ENMT: Denies: throat pain, enlarged tonsils, odynophagia, hoarseness, mouth pain or swelling of lips/tongue Card: Reports: chest pain; Denies: palpitations, irregular heart rhythm, edema or swelling of feet/ankles Resp: Denies: dyspnea, productive cough or non-productive cough GI: Denies: abdominal pain, nausea or vomiting : Denies: flank pain, dysuria, urinary frequency, urinary urgency or urinary hesitancy Musc: Denies: neck pain, back pain or extremity swelling Skin/Breast: Denies: rash, pruritus or erythema Neuro: Denies: headache(s), numbness in extremities or weakness in extremities Endo: Denies: polyuria, polydipsia or tired all the time [facility] ED PFSH: Medical History (Updated 04/17/20 @ 19:28 by Allen Santos MD, [facility] [place]) Chronic pain syndrome COPD (chronic obstructive pulmonary disease) History of coronary artery disease HTN (hypertension) Hx of deep venous thrombosis Hx pulmonary embolism IBS (irritable bowel syndrome) Morbid obesity Obstructive sleep apnea PTSD (post-traumatic stress disorder) Type 2 diabetes mellitus Surgical History History of back surgery S/P appendectomy S/P cholecystectomy S/P IVC filter S/P sinus surgery Social History Smoking and tobacco status: never smoked Alcohol intake: current Alcohol intake frequency: holidays/special occasions only Current occupational status: disabled Current gender identity: Male Physical Exam Const: COMMON NORMALS: no acute distress, average body habitus, patient oriented x3, no limitations, healthy appearing, alert and well nourished Neck/C-Spine: COMMON NORMALS: no meningeal signs and no JVD Chest: COMMONS NORMALS: normal inspection of the chest CHEST: Yes localized rib tenderness with anteroposterior compression Resp: COMMON NORMALS: normal respiratory effort, No retractions, No use of accessory muscles, clear to auscultation bilaterally and percussion normal AUSCULTATION: clear to auscultation bilaterally PERCUSSION: percussion normal Cardio: COMMON NORMALS: no JVD, regular rate, regular rhythm, S1 normal heart sound present, S2 normal heart sound present, No gallops present (Cardio), No clicks present (Cardio), No murmurs present (Cardio), No rub (Cardio) and Peripheral pulses 2+ throughout RATE: regular rate RHYTHM: regular rhythm HEART SOUNDS: S1 normal heart sound present and S2 normal heart sound present PERIPHERAL PULSES: Peripheral pulses 2+ throughout GI: COMMON NORMALS: Normal to inspection, nondistended, normoactive bowel sounds present, Soft to palpation, non-tender, No hepatosplenomegaly present, no masses and no bruits PALPATION: Yes Soft to palpation and Yes No hepatosplenomegaly present : COMMON NORMALS: Yes no CVA tenderness BLADDER/KIDNEY EXAM: Yes no CVA tenderness Back/Pelvis: COMMON NORMALS: no CVA tenderness Extremity: COMMON NORMALS: normal to inspection, full ROM, capillary refill normal, no calf tenderness and no pedal edema Neuro: COMMON NORMALS: patient oriented x3 SENSORIUM/ORIENTATION: Yes alert MENINGEAL SIGNS: Yes no meningeal signs Skin: COMMON NORMALS: no rashes or lesions noted, no wounds, turgor normal, no jaundice, no petechiae and no mottling GENERAL SKIN EXAM: no rashes or lesions noted and turgor normal Course Reevaluation(s): Reevaluation #1: Discussed his lab and imaging findings with him. Negative troponin x2. D-dimer elevated but CT of his lungs negative for PE or dissection. He has leukopenia, thrombocytopenia but no elevated liver enzymes. I therefore asked if he has had any tick bites recently and he says he has. We will send off his labs for a tick panel. I believe his chest pain may have been due to stress. He voiced understanding and is in agreement with the plan. Time: 19:27 Vital Signs: Vital signs: Vital Signs Temperature 97.9 F 04/17/20 15:41 Pulse Rate 77 04/17/20 17:49 Respiratory Rate 21 H 04/17/20 17:49 Blood Pressure 130/99 04/17/20 19:38 Pulse Oximetry 96 04/17/20 19:38 MDM - Chest Pain MDM Narrative: Medical decision making narrative: 44-year-old gentleman with a prior RI, coronary artery disease, CVA, who presents to the emergency department with chest pain following a stressful event. Evaluation in the emergency department was negative for an RI with a negative high-sensitivity troponin x2. D-dimer was elevated but a CTA of his lungs was negative for PE or aneurysm. He is therefore discharged home with no new orders. Because of his lab findings of leukopenia and thrombocytopenia a tick panel was sent off. The patient admits to having some tick bites. He will be contacted with the results of the test. Differential Diagnosis: Cardiac arrest differential diagnosis: Likely acute massive pulmonary embolism and acute myocardial infarction Medical Records: Attestation: I reviewed the patient's medical records. Lab Data: Attestation: I reviewed the patient's lab results. Labs: Lab Results 04/17/20 04/17/20 04/17/20 Range/Units 15:45 15:45 15:45 WBC 3.3 L (4.0-10.0) 10^3/ uL RBC 4.41 (4.1-5.3) 10^6/u L Hgb 12.9 (11.7-16.6) g/dL Hct 39.1 L (42.0-52.0) % MCV 88.7 (80-94) fL MCH 29.3 (28.0-34.0) pg MCHC 33.0 (30.0-36.0) g/dL RDW 13.2 (12.1-15.1) % Plt Count 129 L (130-400) 10^3/c mm MPV 8.6 (7.4-10.4) fL Neut % (Auto) 43.3 % Lymph % (Auto) 38.8 % Spencer % (Auto) 15.8 % Eos % (Auto) 0.6 % Baso % (Auto) 1.2 % Neut # (Auto) 1.4 L (1.8-7.7) 10^3/u L Lymph # (Auto) 1.3 (0.8-4.8) 10^3/u L Spencer # (Auto) 0.5 (0.2-0.9) 10^3/u L Eos # (Auto) 0.0 (0.0-0.8) 10^3/u L Baso # (Auto) 0.0 (0.0-0.1) 10^3/u L Nucleated RBC % (a uto) 0 % Nucleated RBCs # 0.0 /100WBC D-Dimer 7.06 H (0-0.59) ug/mIFE U Sodium 136 (136-145) mmol/L Potassium 3.7 (3.5-5.1) mmol/L Chloride 98 (98-107) mmol/L Carbon Dioxide 21 L (22-29) mmol/L Anion Gap 20.7 H (5-19) BUN 7 (6-20) mg/dL Creatinine 0.8 (0.7-1.2) mg/dL GFR Calculation 104.5 (90-130) mL/min Glucose 247 H (65-115) mg/dL Calculated Osmolal ity 286 (285-295) mOsm/k g Calcium 8.8 (8.5-10.5) mg/dL Total Bilirubin 0.8 (0.15-1.2) mg/dL AST 37 (0-40) U/L ALT 31 (0-41) U/L Alkaline Phosphata se 78 (40-130) IU/L Troponin T Baselin e (0-15) ng/L Troponin T 120 Min celena (0-15) ng/L Delta Troponin T (0-10) ABS# NT-Pro-B Natriuret Pep 123 (0-125) pg/mL Total Protein 7.5 (6.6-8.7) g/dL Albumin 3.8 (3.5-5.2) g/dL Globulin 3.7 (1.3-4.6) g/dL 04/17/20 04/17/20 Range/Units 15:45 17:48 WBC (4.0-10.0) 10^3/ uL RBC (4.1-5.3) 10^6/u L Hgb (11.7-16.6) g/dL Hct (42.0-52.0) % MCV (80-94) fL MCH (28.0-34.0) pg MCHC (30.0-36.0) g/dL RDW (12.1-15.1) % Plt Count (130-400) 10^3/c mm MPV (7.4-10.4) fL Neut % (Auto) % Lymph % (Auto) % Spencer % (Auto) % Eos % (Auto) % Baso % (Auto) % Neut # (Auto) (1.8-7.7) 10^3/u L Lymph # (Auto) (0.8-4.8) 10^3/u L Spencer # (Auto) (0.2-0.9) 10^3/u L Eos # (Auto) (0.0-0.8) 10^3/u L Baso # (Auto) (0.0-0.1) 10^3/u L Nucleated RBC % (a uto) % Nucleated RBCs # /100WBC D-Dimer (0-0.59) ug/mIFE U Sodium (136-145) mmol/L Potassium (3.5-5.1) mmol/L Chloride (98-107) mmol/L Carbon Dioxide (22-29) mmol/L Anion Gap (5-19) BUN (6-20) mg/dL Creatinine (0.7-1.2) mg/dL GFR Calculation (90-130) mL/min Glucose (65-115) mg/dL Calculated Osmolal ity (285-295) mOsm/k g Calcium (8.5-10.5) mg/dL Total Bilirubin (0.15-1.2) mg/dL AST (0-40) U/L ALT (0-41) U/L Alkaline Phosphata se (40-130) IU/L Troponin T Baselin e 7 (0-15) ng/L Troponin T 120 Min celena 6.00 (0-15) ng/L Delta Troponin T -1.00 L (0-10) ABS# NT-Pro-B Natriuret Pep (0-125) pg/mL Total Protein (6.6-8.7) g/dL Albumin (3.5-5.2) g/dL Globulin (1.3-4.6) g/dL Imaging Data^: CTA Chest: Radiologist's impression: [place] [address] CT Scan Report Signed Patient: Robby Ramirez #: [id number] : 1975Acct#:[id number] Age/Sex: 44 / MADM Date: 04/17/20 Loc: ERRoom/Bed: Attending Dr: Ordering Provider/Ordering MD: Allen Santos MD, [facility] [place] Date of Service: 04/17/20 Procedure(s): CT angio chest PE protcl [id number] Accession Number(s): [id number] Report Number: [id number] PROCEDURE INFORMATION: Exam: CT Angiography Chest With Contrast Exam date and time: 04/17/2020 5:59 PM Age: 44 years old Clinical indication: Other: Chest pain; Additional info: Chest pain, elevated d-dimer TECHNIQUE: Imaging protocol: Computed tomographic angiography of the chest with intravenous contrast. 3D rendering: MIP and/or 3D reconstructed images were created by the technologist. Radiation optimization: All CT scans at this facility use at least one of these dose optimization techniques: automated exposure control; mA and/or kV adjustment per patient size (includes targeted exams where dose is matched to clinical indication); or iterative reconstruction. Contrast material: OMNI; Contrast volume: 95 ml; Contrast route: INTRAVENOUS (IV); COMPARISON: No relevant prior studies available. RADIATION DOSE METRICS: Total DLP (mGy-cm): 621.42 FINDINGS: Pulmonary arteries: Normal. No pulmonary emboli. Aorta: Unremarkable. No aortic aneurysm. No aortic dissection. Lungs: Unremarkable. No consolidation. No masses. Pleural space: Unremarkable. No pneumothorax. No pleural effusion. Heart: Unremarkable. No cardiomegaly. No pericardial effusion. Lymph nodes: Unremarkable. No enlarged lymph nodes. Bones/joints: Chronic appearing mild height loss of T11 is noted with a Schmorl's node. There is no acute fracture. Multiple Schmorl's nodes are noted in the spine. There is also chronic mild height loss of the superior endplate of T3. Soft tissues: Unremarkable. CT/CT angio chest PE protcl [id number] IMPRESSION: No acute findings. Radiation Dose CTDIVOL = (mGy): DLP = 621.42 (mGy-cm) Dictated By:Varsha Wallace Signed By:Hari Wallace Date/Time:04/17/201842 DD/ 40 EKG Data^: EKG 1: Computer generated interpretation: [place] [address] Electrocardiograph Report Draft Patient: Robby Ramirez #: [id number] : 1975Acct#:[id number] Age/Sex: 44 / MADM Date: 04/17/20 Loc: [facility]/Bed: Attending Dr: Ordering Provider/Ordering MD: Allen Santos MD, [facility] [place] Date of Service: 04/17/20 Procedure(s): ECG 12 lead EKG Accession Number(s): [id number] Report Number: [id number] [facility] ED Test Date: 2020-04-17 Pat Name: Robby Ramirez Department: Room: Gender: Male Proced Tech: : 1975 Requested By: Allen Santos I Order Number: [id number] Reading MD: Measurements Intervals [place] Rate: 79 P: 42 NE: 188 QRS: 32 QRSD: 96 T: 48 QT: 387 QTc: 446 Interpretive Statements SINUS RHYTHM SEPTAL MYOCARDIAL INFARCTION [40+ ms Q WAVE IN V1/V2], OF INDETERMINATE AGE Compared to ECG 04/17/2020 15:44:10 Myocardial infarct finding now present [id number] [email or web address] Dictated By:INTERFACE,USER Signed By:Signed Date/Deonte EKG 2: Computer generated interpretation: [facility] [address] [place] [address] Electrocardiograph Report Draft Patient: Rboby Ramirez #: [id number] : 1975Acct#:[id number] Age/Sex: 44 / MADM Date: 04/17/20 Loc: ERRoom/Bed: Attending Dr: Ordering Provider/Ordering MD: Allen Santos MD, [facility] [place] Date of Service: 04/17/20 Procedure(s): ECG 12 lead EKG Accession Number(s): [id number] Report Number: [id number] [facility] ED Test Date: 2020-04-17 Pat Name: Robby Ramirez Department: Room: Gender: Male Proced Tech: : 1975 Requested By: Allen Santos I Order Number: [id number] Reading MD: Measurements Intervals [place] Rate: 91 P: 18 NE: 179 QRS: 3 QRSD: 96 T: 21 QT: 345 QTc: 424 Interpretive Statements SINUS RHYTHM No previous ECG available for comparison [email or web address] [id number] Dictated By:INTERFACE,USER Signed By:Signed Date/Time: DD/ 1544 Discharge Plan Discharge Patient Disposition: Home, Self-Care Clinical Impression: Chest pain Qualifiers: Chest pain type: unspecified Qualified Code(s): R07.9 - Chest pain, unspecified Condition: Stable Prescriptions: Continued glyburide 5 mg tablet 5 mg PO BID 90 Days Qty: 180 RF: 0 Ozempic 1 mg/dose (2 mg/1.5 mL) pen injector 0.5 mg SUBCUT .once a week 90 Days Qty: 3 RF: 0 fluticasone propion-salmeterol [Advair Diskus] 250-50 mcg/dose blister with device 1 inh INHALATION BID Qty: 1 RF: 3 albuterol sulfate [ProAir HFA] 90 mcg/actuation HFA aerosol inhaler 1 inh INHALATION QID Qty: 6.7 RF: 0 ciprofloxacin HCl 500 mg tablet 500 mg PO BID Qty: 20 RF: 0 Insulin From A Friend See Rx Instructions .ROUTE .COMPLEX RF: 0 Discharge Orders: Discharge Order (Routine); Ordered 04/17/20 Ordered By: Allen Santos Referrals: Yasmeen Jaimes DO [Primary Care Provider] - 1-3 days Patient Instructions: Chest Pain (ED) Activity Restrictions/Additional Instructions: Return for any new or worsening symptoms. Follow-up with your primary care provider within 3 days. Take your medications as prescribed. You will be contacted with the results of the tick tests. Discharge Date/Time: 04/17/20 19:43 Coding Level of Care Code ED [facility] for Tori Fwsteve Exam Comprehensive
[2020-04-17 17:33] LABS: Alanine Aminotransferase 31 U/L (0-41); Albumin Level 3.8 g/dL (3.5-5.2); Alkaline Phosphatase 78 IU/L (40-130); Anion Gap 20.7 (5-19); Aspartate Amino Transferase 37 U/L (0-40); Blood Urea Nitrogen 7 mg/dL (6-20); Calcium 8.8 mg/dL (8.5-10.5); Carbon Dioxide 21 mmol/L (22-29); Chloride 98 mmol/L (98-107); Globulin 3.7 g/dL (1.3-4.6); Glomerular Filtration Rate 104.5 mL/min (90-130); Glucose 247 mg/dL (65-115); NT Pro B Type Natriuretic Pept 123 pg/mL (0-125); Osmolality Calculated 286 mOsm/kg (285-295); Potassium 3.7 mmol/L (3.5-5.1); Sodium 136 mmol/L (136-145); Total Bilirubin 0.8 mg/dL (0.15-1.2); Total Protein 7.5 g/dL (6.6-8.7)
--- NOTE | 2020-04-17 17:43 | ECG_ITS ---
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 Measurements Intervals [place] Rate: 79 P: 42 MA: 188 QRS: 32 QRSD: 96 T: 48 QT: 387 QTc: 446 Interpretive Statements SINUS RHYTHM SEPTAL MYOCARDIAL INFARCTION [40+ ms Q WAVE IN V1/V2], OF INDETERMINATE AGE Compared to ECG 04/17/2020 15:44:10 Myocardial infarct finding now present Electronically Signed On 04-18-2020 23:00:53 CDT by Tammi Lubin M.D. [id number]
--- NOTE | 2020-04-17 17:48 | CTR_ITS ---
PROCEDURE INFORMATION: Exam: CT Angiography Chest With Contrast Exam date and time: 04/17/2020 5:59 PM Age: 44 years old Clinical indication: Other: Chest pain; Additional info: Chest pain, elevated d-dimer TECHNIQUE: Imaging protocol: Computed tomographic angiography of the chest with intravenous contrast. 3D rendering: MIP and/or 3D reconstructed images were created by the technologist. Radiation optimization: All CT scans at this facility use at least one of these dose optimization techniques: automated exposure control; mA and/or kV adjustment per patient size (includes targeted exams where dose is matched to clinical indication); or iterative reconstruction. Contrast material: OMNI; Contrast volume: 95 ml; Contrast route: INTRAVENOUS (IV); COMPARISON: No relevant prior studies available. RADIATION DOSE METRICS: Total DLP (mGy-cm): 621.42 FINDINGS: Pulmonary arteries: Normal. No pulmonary emboli. Aorta: Unremarkable. No aortic aneurysm. No aortic dissection. Lungs: Unremarkable. No consolidation. No masses. Pleural space: Unremarkable. No pneumothorax. No pleural effusion. Heart: Unremarkable. No cardiomegaly. No pericardial effusion. Lymph nodes: Unremarkable. No enlarged lymph nodes. Bones/joints: Chronic appearing mild height loss of T11 is noted with a Schmorl's node. There is no acute fracture. Multiple Schmorl's nodes are noted in the spine. There is also chronic mild height loss of the superior endplate of T3. Soft tissues: Unremarkable. CT/CT angio chest PE protcl [id number] IMPRESSION: No acute findings. Radiation Dose CTDIVOL = (mGy): DLP = 621.42 (mGy-cm)
[2020-04-17 17:49] VITALS: BP 137/83; PULSE 77; RESP 21; O2SAT 95
[2020-04-17] MEDS: iohexol 350 mg/mL 100 mL Btl 95 ML IV (18:08)
--- NOTE | 2020-04-17 18:23 | PC.NURSE ---
EKG done at 1822 and shown to ER doctor
--- NOTE | 2020-04-17 19:24 | PC.NURSE ---
MD at bedside to discuss plan of care.
[2020-04-17 19:38] VITALS: BP 130/99; O2SAT 96
== END 2020-04-17 19:43 | disposition home or self-care (01) ==
PROVIDERS: Emergency Provider Family Medicine; PCP Family Medicine
DX: R07.9 Chest pain, unspecified (principal); J44.9 Chronic obstructive pulmonary disease, unspecified; I10 Essential (primary) hypertension; E11.9 Type 2 diabetes mellitus without complications; Z86.711 Personal history of pulmonary embolism
CPT/HCPCS: 12345; 71275; 80053; 83880; 84484; 85025; 85378; 86618; 86666; 86757; 93005; 99283; 99284; Q9967

== ENCOUNTER 2020-05-18 10:05 | Emergency (ER) | payer MEDICARE, SELFPAY ==
[2020-05-18 10:24] VITALS: BMI 40.1
[2020-05-18 10:27] VITALS: BP 139/88; PULSE 102; RESP 18; TEMP 36.8; O2SAT 97
--- NOTE | 2020-05-18 10:40 | XR_ITS ---
WS: [id number] PORTABLE CHEST HISTORY: chest pain COMPARISON: 01/09/[address] 04/17/2020 Lungs are clear and well expanded. No pleural effusion or pneumothorax. Cardiac size: Normal. Mediastinum/Aorta: Normal mediastinum. No osseous abnormality seen. XR/XR chest 1V portable [id number] IMPRESSION: Unremarkable portable chest.
--- NOTE | 2020-05-18 10:41 | W.ED.ARRPALP ---
HPI - Arrhythmia/Palpitations General: Chief Complaint: General Medical Stated Complaint: elevated bp/high hr Time Seen by Provider: 05/18/20 10:27 Source: patient and family Mode of arrival: ambulatory Limitations: no limitations History of Present Illness: HPI narrative: Patient is a 44-year-old male who presents to ED today with a complaint of an episode of tachycardia, hypoxia, and diaphoresis that occurred earlier today after he was leaving the court house after a court date/trial. Patient tells me he carries a round a portable finger pulse ox and states he became pale so he took his pulse and pulse ox and stated his pulse was 153 and his pulse ox was going down quickly . Reports he also had some chest pains with this incident. Chest pain better upon arrival but still slighly present. Patient reports he was here approximately a month ago with a complaint of chest pain and told he probably had a heart attack (looking at the provider's documentation this is highly inaccurate as patient had negative troponin and was discharged home). Patient overall seems to be a very poor historian. I get the feeling he is overwhelmingly noncompliant on the majority of his medical conditions. He tells me at one time he possibly has been diagnosed with bone cancer-again never had any follow-up regarding this. He tells me he has had 10 previous heart attacks. He has no cardiac stents. 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 He states normal blood sugars run from 230-360. Associated symptoms: Deny nausea, pre-syncope, syncope or vomiting Review of Systems Const: Denies: fever(s), chills, body aches, fatigue or malaise Eyes: Denies: change in vision, blurry vision, photophobia, floaters or seeing flashes Card: Reports: chest pain, swelling of feet/ankles (chronic ) and dyspnea on exertion; Denies: palpitations, irregular heart rhythm, edema, lightheadedness, syncope, pre-syncope, orthopnea, leg pain with exertion or acrocyanosis Resp: Denies: dyspnea, productive cough, non-productive cough, pain on inspiration, change in phlegm color, hemoptysis or chest congestion GI: Denies: abdominal pain, nausea, vomiting or diarrhea Musc: Denies: neck pain or back pain Skin/Breast: Denies: rash Neuro: Denies: headache(s), numbness in extremities, weakness in extremities or sensory changes PFS ED PFSH: Medical History (Updated 05/18/20 @ 15:35 by CRISTAL Durham) Chronic pain syndrome COPD (chronic obstructive pulmonary disease) History of coronary artery disease HTN (hypertension) Hx of deep venous thrombosis Hx pulmonary embolism IBS (irritable bowel syndrome) Morbid obesity Obstructive sleep apnea PTSD (post-traumatic stress disorder) Type 2 diabetes mellitus Surgical History History of back surgery S/P appendectomy S/P cholecystectomy S/P IVC filter S/P sinus surgery Social History Smoking and tobacco status: never smoked Alcohol intake: current Alcohol intake frequency: holidays/special occasions only Current occupational status: disabled Current gender identity: Male Physical Exam Const: COMMON NORMALS: no acute distress, patient oriented x3, no limitations and alert NUTRITIONAL APPEARANCE: obese morbidly obese ORIENTATION/CONSCIOUSNESS: Yes oriented to person, Yes oriented to place and Yes oriented to time HENMT: COMMON NORMALS: normocephalic and atraumatic HEAD & SCALP: normocephalic and atraumatic Chest: COMMONS NORMALS: normal inspection of the chest and normal palpation of entire chest wall Resp: COMMON NORMALS: normal respiratory effort and clear to auscultation bilaterally AUSCULTATION: clear to auscultation bilaterally Cardio: COMMON NORMALS: regular rhythm RATE: tachycardic (mild) RHYTHM: regular rhythm GI: COMMON NORMALS: Normal to inspection, nondistended, normoactive bowel sounds present, Soft to palpation, non-tender, No hepatosplenomegaly present and no masses PALPATION: Yes Soft to palpation and Yes No hepatosplenomegaly present Extremity: COMMON NORMALS: capillary refill normal and no calf tenderness NARRATIVE EXTREMITY EXAM: bilateral equal non-pitting edema; venous stasis skin changes GENERAL: Yes normal exam except as noted Neuro: COMMON NORMALS: patient oriented x3 SENSORIUM/ORIENTATION: Yes alert, Yes oriented to person, Yes oriented to place and Yes oriented to time Course Vital Signs: Vital signs: Vital Signs Temperature 99.0 F 05/18/20 15:44 Pulse Rate 91 05/18/20 15:44 Respiratory Rate 18 05/18/20 15:44 Blood Pressure 115/68 05/18/20 15:44 Pulse Oximetry 95 05/18/20 15:44 MDM - Arrhythmia/Palpitations MDM Narrative: Medical decision making narrative: Patient presented to ED today after an episode of tachycardia and decreased O2 read via a finger pulse ox machine. He was also having some chest pain at the time however upon arrival this is almost completely subsided. Patient's initial troponin was 6. His delta is not significant (0.38). Patient's EKGs showing no acute ischemic changes. Patient CXR is unremarkable. CTA ordered due to elevated d-dimer and tachycardia-this did not show any evidence of a PE. He wHis glucose was noted to be 442. He states normal glucose for him runs in the 200s-300s but states prior to arrival he did eat cinnamon sugar syrup pancakes. After 10 units of insulin glucose now down in the 200s. He has no evidence of DKA. Patient certainly has enough risk factors to stay in the hospital for cardiac rule out however patient adamantly refuses stating he has responsibilities at home and would like to be discharged with cardiology follow-up. I have spoken to case management who will work on this appointment. Strict return to ED precautions given. Lab Data: Labs: Lab Results 05/18/20 05/18/20 05/18/20 Range/Units 11:16 11:16 11:16 WBC 7.8 (4.0-10.0) 10^3/ uL RBC 5.07 (4.1-5.3) 10^6/u L Hgb 14.9 (11.7-16.6) g/dL Hct 45.1 (42.0-52.0) % MCV 89.0 (80-94) fL MCH 29.4 (28.0-34.0) pg MCHC 33.0 (30.0-36.0) g/dL RDW 13.0 (12.1-15.1) % Plt Count 193 (130-400) 10^3/c mm MPV 9.2 (7.4-10.4) fL Neut % (Auto) 52.3 % Lymph % (Auto) 38.0 % [place] % (Auto) 7.3 % Eos % (Auto) 1.7 % Baso % (Auto) 0.6 % Neut # (Auto) 4.08 (1.8-7.7) 10^3/u L Lymph # (Auto) 3.0 (0.8-4.8) 10^3/u L [place] # (Auto) 0.6 (0.2-0.9) 10^3/u L Eos # (Auto) 0.1 (0.0-0.8) 10^3/u L Baso # (Auto) 0.1 (0.0-0.1) 10^3/u L Nucleated RBC % (a uto) 0 % Nucleated RBCs # 0.0 /100WBC D-Dimer (0-0.59) ug/mIFE U Specimen Type Sample Site ABG pH (7.35-7.45) ABG pCO2 (35-45) mmHg ABG pO2 (80.0-100.0) mmH g ABG HCO3 (22-26) mmol/L ABG O2 Saturation ABG Base Excess (-2.0-2.0) mmol/ L Contreras Test A-a O2 Gradient (5-10) mmHg Hematocrit (42-52) % Hgb O2 Saturation (95-100) % Carboxyhemoglobin (0.4-20.1) %THgb Methemoglobin (0.4-1.5) % Total Hemoglobin (14-18) g/dL Ionized Calcium (1.1-1.4) mmol/L O2 Delivery Device FiO2 % Applique Sewer ID Sodium 132 L (136-145) mmol/L Potassium 3.7 (3.5-5.1) mmol/L Chloride 95 L (98-107) mmol/L Carbon Dioxide 24 (22-29) mmol/L Anion Gap 16.7 (5-19) BUN 18 (6-20) mg/dL Creatinine 0.9 (0.7-1.2) mg/dL GFR Calculation 91.3 (90-130) mL/min Glucose 442 H (65-115) mg/dL POC Glucose (70-110) mg/dL Calculated Osmolal ity 290 (285-295) mOsm/k g Calcium 9.6 (8.5-10.5) mg/dL Total Bilirubin 0.4 (0.15-1.2) mg/dL AST 17 (0-40) U/L ALT 21 (0-41) U/L Alkaline Phosphata se 84 (40-130) IU/L Troponin T Baselin e 6 (0-15) ng/L Troponin T 120 Min [place] (0-15) ng/L Delta Troponin T (0-10) ABS# Total Protein 8.0 (6.6-8.7) g/dL Albumin 4.2 (3.5-5.2) g/dL Globulin 3.8 (1.3-4.6) g/dL Urine Opiates Scre en (Negative) ng/mL Ur Barbiturates Sc reen (Negative) ng/mL Ur Phencyclidine S crn (Negative) ng/mL Ur Amphetamines Sc reen (Negative) ng/mL U Benzodiazepines Scrn (Negative) ng/mL Urine Cocaine Scre en (Negative) ng/mL U Marijuana (THC) Screen (Negative) ng/mL Serum Ketones (Negative) 05/18/20 05/18/20 05/18/20 Range/Units 11:16 12:00 13:10 WBC (4.0-10.0) 10^3/ uL RBC (4.1-5.3) 10^6/u L Hgb (11.7-16.6) g/dL Hct (42.0-52.0) % MCV (80-94) fL MCH (28.0-34.0) pg MCHC (30.0-36.0) g/dL RDW (12.1-15.1) % Plt Count (130-400) 10^3/c mm MPV (7.4-10.4) fL Neut % (Auto) % Lymph % (Auto) % [place] % (Auto) % Eos % (Auto) % Baso % (Auto) % Neut # (Auto) (1.8-7.7) 10^3/u L Lymph # (Auto) (0.8-4.8) 10^3/u L [place] # (Auto) (0.2-0.9) 10^3/u L Eos # (Auto) (0.0-0.8) 10^3/u L Baso # (Auto) (0.0-0.1) 10^3/u L Nucleated RBC % (a uto) % Nucleated RBCs # /100WBC D-Dimer (0-0.59) ug/mIFE U Specimen Type Arterial Sample Site Radial, left ABG pH 7.41 (7.35-7.45) ABG pCO2 36.6 (35-45) mmHg ABG pO2 86.4 (80.0-100.0) mmH g ABG HCO3 23.2 (22-26) mmol/L ABG O2 Saturation 96.7 ABG Base Excess -1.0 (-2.0-2.0) mmol/ L Contreras Test Pos A-a O2 Gradient 16.8 H (5-10) mmHg Hematocrit 46.9 (42-52) % Hgb O2 Saturation 95.1 (95-100) % Carboxyhemoglobin 0.9 (0.4-20.1) %THgb Methemoglobin 0.7 (0.4-1.5) % Total Hemoglobin 15.3 (14-18) g/dL Ionized Calcium 1.3 (1.1-1.4) mmol/L O2 Delivery Device None FiO2 21.0 % Applique Sewer ID ed Sodium 133.0 (136-145) mmol/L Potassium 3.9 (3.5-5.1) mmol/L Chloride (98-107) mmol/L Carbon Dioxide (22-29) mmol/L Anion Gap (5-19) BUN (6-20) mg/dL Creatinine (0.7-1.2) mg/dL GFR Calculation (90-130) mL/min Glucose 419.0 H (65-115) mg/dL POC Glucose (70-110) mg/dL Calculated Osmolal ity (285-295) mOsm/k g Calcium (8.5-10.5) mg/dL Total Bilirubin (0.15-1.2) mg/dL AST (0-40) U/L ALT (0-41) U/L Alkaline Phosphata se (40-130) IU/L Troponin T Baselin e (0-15) ng/L Troponin T 120 Min [place] 6.38 (0-15) ng/L Delta Troponin T 0.38 (0-10) ABS# Total Protein (6.6-8.7) g/dL Albumin (3.5-5.2) g/dL Globulin (1.3-4.6) g/dL Urine Opiates Scre en (Negative) ng/mL Ur Barbiturates Sc reen (Negative) ng/mL Ur Phencyclidine S crn (Negative) ng/mL Ur Amphetamines Sc reen (Negative) ng/mL U Benzodiazepines Scrn (Negative) ng/mL Urine Cocaine Scre en (Negative) ng/mL U Marijuana (THC) Screen (Negative) ng/mL Serum Ketones Negative (Negative) 05/18/20 05/18/20 05/18/20 Range/Units 13:10 14:35 14:45 WBC (4.0-10.0) 10^3/ uL RBC (4.1-5.3) 10^6/u L Hgb (11.7-16.6) g/dL Hct (42.0-52.0) % MCV (80-94) fL MCH (28.0-34.0) pg MCHC (30.0-36.0) g/dL RDW (12.1-15.1) % Plt Count (130-400) 10^3/c mm MPV (7.4-10.4) fL Neut % (Auto) % Lymph % (Auto) % [place] % (Auto) % Eos % (Auto) % Baso % (Auto) % Neut # (Auto) (1.8-7.7) 10^3/u L Lymph # (Auto) (0.8-4.8) 10^3/u L [place] # (Auto) (0.2-0.9) 10^3/u L Eos # (Auto) (0.0-0.8) 10^3/u L Baso # (Auto) (0.0-0.1) 10^3/u L Nucleated RBC % (a uto) % Nucleated RBCs # /100WBC D-Dimer 2.06 H (0-0.59) ug/mIFE U Specimen Type Sample Site ABG pH (7.35-7.45) ABG pCO2 (35-45) mmHg ABG pO2 (80.0-100.0) mmH g ABG HCO3 (22-26) mmol/L ABG O2 Saturation ABG Base Excess (-2.0-2.0) mmol/ L Contreras Test A-a O2 Gradient (5-10) mmHg Hematocrit (42-52) % Hgb O2 Saturation (95-100) % Carboxyhemoglobin (0.4-20.1) %THgb Methemoglobin (0.4-1.5) % Total Hemoglobin (14-18) g/dL Ionized Calcium (1.1-1.4) mmol/L O2 Delivery Device FiO2 % Applique Sewer ID Sodium (136-145) mmol/L Potassium (3.5-5.1) mmol/L Chloride (98-107) mmol/L Carbon Dioxide (22-29) mmol/L Anion Gap (5-19) BUN (6-20) mg/dL Creatinine (0.7-1.2) mg/dL GFR Calculation (90-130) mL/min Glucose (65-115) mg/dL POC Glucose 292 (70-110) mg/dL Calculated Osmolal ity (285-295) mOsm/k g Calcium (8.5-10.5) mg/dL Total Bilirubin (0.15-1.2) mg/dL AST (0-40) U/L ALT (0-41) U/L Alkaline Phosphata se (40-130) IU/L Troponin T Baselin e (0-15) ng/L Troponin T 120 Min [place] (0-15) ng/L Delta Troponin T (0-10) ABS# Total Protein (6.6-8.7) g/dL Albumin (3.5-5.2) g/dL Globulin (1.3-4.6) g/dL Urine Opiates Scre en Negative (Negative) ng/mL Ur Barbiturates Sc reen Negative (Negative) ng/mL Ur Phencyclidine S crn Negative (Negative) ng/mL Ur Amphetamines Sc reen Negative (Negative) ng/mL U Benzodiazepines Scrn Negative (Negative) ng/mL Urine Cocaine Scre en Negative (Negative) ng/mL U Marijuana (THC) Screen Negative (Negative) ng/mL Serum Ketones (Negative) Imaging Data^: CTA Chest: Radiologist's impression: [address] [address] [address] Scan Report Signed Patient: Robby Ramirez Unit #: [id number] : 1975 Age/Sex: 44 / M ADM Date: 05/18/20 Loc: ER Room/Bed: Attending Dr: Ordering Provider/Ordering MD: Tuyet Monk Date of Service: 05/18/20 Procedure(s): CT angio chest PE protcl [id number] Accession Number(s): [id number] Report Number: [id number] WS: [id number] CT CHEST ANGIOGRAPHY WITH REFORMATS HISTORY: SOB, chest pain, tachycardia, elevated d dimer TECHNIQUE: Contiguous axial images are obtained through the chest during arterial injection of intravenous contrast. Images are reconstructed to evaluate the pulmonary arteries. MIP imaging also reviewed. All CT scans at [facility] use at least one of these dose optimization techniques: automated exposure control; mA and/or kV adjustment per patient size (includes targeted exams where dose is matched to clinical indication); or iterative reconstruction. CONTRAST: Omnipaque 350; 269 mL IV. DLP: 1899.19 mGy.cm COMPARISON: 04/17/2020 and 01/08/2020 Difficulty obtaining adequate opacification of the pulmonary arteries. On the last attempt there is better opacification of the pulmonary arteries. There are no central or proximal filling defects. Beyond the segmental branches opacification is limited. Normal size aorta. No pericardial or pleural effusions. There is mild haziness and groundglass attenuation throughout both lungs with no focal pneumonia. No pericardial or pleural effusions. No RIGHT heart strain. There are a few small benign lymph nodes in the mediastinum and hilum. Similar to the prior study. No osseous destruction. Prior cholecystectomy. CT/CT angio chest PE protcl [id number] IMPRESSION: 1. Suboptimal examination of the mid to distal pulmonary arteries but adequate centrally. No central pulmonary embolism. 2. Mild interstitial edema. 3. Prior cholecystectomy. Dictated By: Jyoti Montes DO Signed By: Jyoti Montes DO Signed Date/Time: 05/18/20 1437 DD/ 1433 CXR: Radiologist's impression: [facility] [address] [place] [address] XRay Report Signed Patient: Robby Ramirez #: [id number] : 1975Acct#:[id number] Age/Sex: 44 / MADM Date: 05/18/20 Loc: ERRoom/Bed: Attending Dr: Ordering Provider/Ordering MD: Tuyet Monk Date of Service: 05/18/20 Procedure(s): XR chest 1V portable [id number] Accession Number(s): [id number] Report Number: [id number] WS: [id number] PORTABLE CHEST HISTORY: chest pain COMPARISON: 01/09/[address] 04/17/2020 Lungs are clear and well expanded. No pleural effusion or pneumothorax. Cardiac size: Normal. Mediastinum/Aorta: Normal mediastinum. No osseous abnormality seen. XR/XR chest 1V portable [id number] IMPRESSION: Unremarkable portable chest. Dictated By:Jyoti Montes DO Signed By:Jyoti Montes DOSigned Date/Time:05/18/20 115 DD/ 1150 Discharge Plan Discharge Patient Disposition: Home, Self-Care Clinical Impression: Tachycardia Chest pain Qualifiers: Chest pain type: unspecified Qualified Code(s): R07.9 - Chest pain, unspecified Uncontrolled diabetes mellitus Qualifiers: Diabetes mellitus type: type 2 Glycemic state: with hyperglycemia Qualified Code(s): E11.65 - Type 2 diabetes mellitus with hyperglycemia Condition: Stable Prescriptions: No Action Lantus Solostar U-100 Insulin 100 unit/mL (3 mL) insulin pen 15 unit SUBCUT DAILY Qty: 3 RF: 0 Discharge Orders: Discharge Order (Routine); Ordered 05/18/20 Ordered By: Tuyet Monk Patient Instructions: Chest Pain (ED) Activity Restrictions/Additional Instructions: As discussed case management will set you up with a cardiology appointment. Please return to the emergency department for worsening chest pain, shortness of breath, difficulty breathing, rapid heart rate/palpitations, any other concerns you may have. Discharge Date/Time: 05/18/20 15:47 Coding Level of Care Code ED Repairer Maintenance Building for Chg Fwd Exam Detailed
[2020-05-18 11:18] VITALS: BP 107/73; BP 122/84; BP 130/77; PULSE 114; PULSE 122; PULSE 143
[2020-05-18 11:24] LABS: Basophils # 0.1 10^3/uL (0.0-0.1); Basophils % 0.6 %; Eosinophils # 0.1 10^3/uL (0.0-0.8); Eosinophils % 1.7 %; Hematocrit 45.1 % (42.0-52.0); Hemoglobin 14.9 g/dL (11.7-16.6); Mean Corpuscular Hemoglobin 29.4 pg (28.0-34.0); Mean Platelet Volume 9.2 fL (7.4-10.4); Monocytes # 0.6 10^3/uL (0.2-0.9); Monocytes % 7.3 %; Neutrophils # 4.08 10^3/uL (1.8-7.7); Neutrophils % 52.3 %; Nucleated Red Blood Cells % 0 %; Platelet Count 193 10^3/cmm (130-400); Red Blood Count 5.07 10^6/uL (4.1-5.3); White Blood Count 7.8 10^3/uL (4.0-10.0)
[2020-05-18 11:26] VITALS: BP 107/73; PULSE 111; RESP 18; O2SAT 96
[2020-05-18 11:41] LABS: Alanine Aminotransferase 21 U/L (0-41); Albumin Level 4.2 g/dL (3.5-5.2); Alkaline Phosphatase 84 IU/L (40-130); Anion Gap 16.7 (5-19); Aspartate Amino Transferase 17 U/L (0-40); Blood Urea Nitrogen 18 mg/dL (6-20); Calcium 9.6 mg/dL (8.5-10.5); Carbon Dioxide 24 mmol/L (22-29); Chloride 95 mmol/L (98-107); Globulin 3.8 g/dL (1.3-4.6); Glomerular Filtration Rate 91.3 mL/min (90-130); Glucose 442 mg/dL (65-115); Osmolality Calculated 290 mOsm/kg (285-295); Potassium 3.7 mmol/L (3.5-5.1); Sodium 132 mmol/L (136-145); Total Bilirubin 0.4 mg/dL (0.15-1.2); Troponin(5th) Baseline 6 ng/L (0-15)
[2020-05-18 12:08] LABS: ABG PCO2 36.6 mmHg (35-45); ABG PH Result 7.41 (7.35-7.45); Alveolar-Arterial Oxygen Gradi 16.8 mmHg (5-10); Arterial Blood Gas Hematocrit 46.9 % (42-52); Blood Gas Allen Test Pos; Blood Gas Sample Site Radial, left; Blood Gas Sample Type Arterial; Carboxyhemoglobin 0.9 %THgb (0.4-20.1); HCO3 ABG 23.2 mmol/L (22-26); HGB O2 Sat 95.1 % (95-100); Ionized Calcium Level - ABG 1.3 mmol/L (1.1-1.4); Methemoglobin 0.7 % (0.4-1.5); Oxygen Saturation ABG 96.7; PO2 ABG 86.4 mmHg (80.0-100.0); Potassium Level - ABG 3.9 mmol/L (3.5-5.0); Total Hemoglobin 15.3 g/dL (14-18)
[2020-05-18 12:11] LABS: Ketone (Acetest) Serum Negative (Negative)
[2020-05-18] MEDS: insulin nph human 100 units/1 mL 10 UNIT SUBCUT (12:22)
--- NOTE | 2020-05-18 12:41 | ECG_ITS ---
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 Measurements Intervals [place] Rate: 99 P: 33 ID: 200 QRS: -10 QRSD: 96 T: 7 QT: 340 QTc: 437 Interpretive Statements SINUS RHYTHM POSSIBLE ANTERIOR MYOCARDIAL INFARCTION , OF INDETERMINATE AGE [30 ms Q WAVE IN V3/V4, OR R < 0.2 mV IN V4] Compared to ECG 05/18/2020 11:00:27 Sinus tachycardia no longer present Myocardial infarct finding still present Electronically Signed On 05-19-2020 16:29:35 CDT by Gio Camejo M.D. [email or web address]
[2020-05-18 12:48] VITALS: PULSE 99; RESP 18; O2SAT 94
[2020-05-18 13:28] LABS: D Dimer 2.06 ug/mIFEU (0-0.59)
--- NOTE | 2020-05-18 13:30 | CT_ITS ---
WS: [id number] CT CHEST ANGIOGRAPHY WITH REFORMATS HISTORY: SOB, chest pain, tachycardia, elevated d dimer TECHNIQUE: Contiguous axial images are obtained through the chest during arterial injection of intrav enous contrast. Images are reconstructed to evaluate the pulmonary arteries. MIP imaging also reviewe d. All CT scans at [facility] use at least one of these dose optimization techniques: aut omated exposure control; mA and/or kV adjustment per patient size (includes targeted exams where dose is matched to clinical indication); or iterative reconstruction. CONTRAST: Omnipaque 350; 269 mL IV. DLP: 1899.19 mGy.cm COMPARISON: 04/17/2020 and 01/08/2020 Difficulty obtaining adequate opacification of the pulmonary arteries. On the last attempt there is b trent opacification of the pulmonary arteries. There are no central or proximal filling defects. Beyo nd the segmental branches opacification is limited. Normal size aorta. No pericardial or pleural effu sions. There is mild haziness and groundglass attenuation throughout both lungs with no focal pneumon ia. No pericardial or pleural effusions. No RIGHT heart strain. There are a few small benign lymph no jalen in the mediastinum and hilum. Similar to the prior study. No osseous destruction. Prior cholecystectomy. CT/CT angio chest PE protcl [id number] IMPRESSION: 1. Suboptimal examination of the mid to distal pulmonary arteries but adequate centrally. No central pulmonary embolism. 2. Mild interstitial edema. 3. Prior cholecystectomy.
[2020-05-18 13:34] LABS: Troponin 5 2HR 6.38 ng/L (0-15); Troponin 5 2HR Delta 0.38 ABS# (0-10)
[2020-05-18] MEDS: iohexol 350 mg/mL 100 mL Btl IV ×3 (14:06→14:20)
[2020-05-18 14:49] LABS: Glucose Point of Care 292 mg/dL (70-110)
[2020-05-18 14:56] VITALS: BP 106/74; PULSE 85; RESP 18; O2SAT 95
[2020-05-18 15:33] LABS: Amphetamines Screen Urine Negative (Negative); Barbiturates Screen Urine Negative (Negative); Benzodiazepines Screen Urine Negative (Negative); Cocaine Screen Urine Negative (Negative); Opiate Screen Urine Negative (Negative); PCP Screen Urine Negative (Negative); THC Screen Urine Negative (Negative)
[2020-05-18 15:44] VITALS: BP 115/68; PULSE 91; RESP 18; TEMP 37.2; O2SAT 95
--- NOTE | 2020-05-18 16:41 | ECG_ITS ---
[facility] Test Date: 2020-05-18 Pat Name: Robby Ramirez Department: Room: Gender: Male Transportation Services Representative: : 1975 Requested By: Tuyet Monk Order Number: [id number] Emily MD: Gio Camejo M.D. Measurements Intervals [place] Rate: 101 P: 55 NM: 180 QRS: 76 QRSD: 98 T: -5 QT: 346 QTc: 450 Interpretive Statements SINUS TACHYCARDIA POSSIBLE ANTERIOR MYOCARDIAL INFARCTION , OF INDETERMINATE AGE [30 ms Q WAVE IN V3/V4, OR R < 0.2 mV IN V4] Compared to ECG 04/17/2020 18:20:25 Sinus rhythm no longer present Myocardial infarct finding still present Electronically Signed On 05-19-2020 16:28:53 CDT by Gio Camejo M.D. [id number]
--- NOTE | 2020-05-19 10:34 | DCPLANNER ---
manager spa had message to schedule a follow up appointment for patient with [facility]. manager spa called [facility], spoke with Bethany, gave clinic patients information. A follow up appointment is scheduled for Tuesday, May 26, 2020 at 9:[address] Lubin. manager spa called patient to inform patient of the scheduled appointment. manager spa unable to speak with patient at this time, a voicemail was left for patient to return home health care case manager phone call.
--- NOTE | 2020-05-20 15:00 | DCPLANNER ---
dry cleaning manager called patient to inform patient of the scheduled appointment, unable to speak with patient at this time, a voicemail was left for patient to return rn case management phone call.
--- NOTE | 2020-05-21 15:28 | DCPLANNER ---
construction project manager did call patient and spoke with patient and informed him of the appointment information.
--- NOTE | 2020-06-11 14:10 | DCPLANNER ---
Patient had an appointment scheduled for 05.26.20 with [facility] - patient did attend appointment.
== END 2020-05-18 15:47 | disposition home or self-care (01) ==
PROVIDERS: Emergency Provider Physician Assistant
DX: R00.0 Tachycardia, unspecified (principal); R07.9 Chest pain, unspecified; E11.65 Type 2 diabetes mellitus with hyperglycemia; Z79.4 Long term (current) use of insulin; J44.9 Chronic obstructive pulmonary disease, unspecified; I10 Essential (primary) hypertension
CPT/HCPCS: 12345; 36415; 36416; 36600; 71045; 71275; 80051; 80053; 80306; 82009; 82810; 82962; 83986; 84484; 85025; 85378; 93005; 96372; 99284; J1815; Q9967

== ENCOUNTER → 2020-10-12 15:36 | Outpatient (BNVA) | payer MEDICARE, SELFPAY | PROVIDERS: PCP Registered Nurse; Visit Provider Nurse Practitioner Family | DX: Z20.828 Contact with and (suspected) exposure to other viral communicable diseases (principal); J06.9 Acute upper respiratory infection, unspecified | CPT/HCPCS: 87635 ==

== ENCOUNTER → 2020-12-01 09:11 | Outpatient (BNVA) | payer MEDICARE, SELFPAY | PROVIDERS: PCP Registered Nurse; Visit Provider Registered Nurse | DX: J41.0 Simple chronic bronchitis (principal); E11.65 Type 2 diabetes mellitus with hyperglycemia; R00.0 Tachycardia, unspecified; Z91.19 Patient's noncompliance with other medical treatment and regimen; Z79.4 Long term (current) use of insulin; E66.01 Morbid (severe) obesity due to excess calories; G47.33 Obstructive sleep apnea (adult) (pediatric) | CPT/HCPCS: 36416; 80053; 80061; 82962; 83036; 85025 ==

== ENCOUNTER → 2020-12-07 12:13 | Outpatient (BNVA) | payer MEDICARE, SELFPAY | PROVIDERS: PCP Registered Nurse; Visit Provider Specialist | DX: R55 Syncope and collapse (principal); R00.2 Palpitations; G43.711 Chronic migraine without aura, intractable, with status migrainosus; J41.0 Simple chronic bronchitis; E66.01 Morbid (severe) obesity due to excess calories; Z68.41 Body mass index [BMI] 40.0-44.9, adult | CPT/HCPCS: 99214; 99215 ==

== ENCOUNTER 2021-04-14 16:47 | Emergency (ER) | payer MEDICARE, SELFPAY ==
[2021-04-14 17:12] VITALS: BP 162/92; PULSE 116; RESP 18; TEMP 36.9; O2SAT 94; BMI 38.4
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
[2021-04-14] MEDS: rabies vaccine 2.5 unit SDV IM (18:12)
== END 2021-04-14 18:40 | disposition home or self-care (01) ==
PROVIDERS: Emergency Provider Physician Assistant; PCP Registered Nurse
DX: S61.052A Open bite of left thumb without damage to nail, initial encounter (principal); W54.0XXA Bitten by dog, initial encounter; Z79.4 Long term (current) use of insulin; I11.0 Hypertensive heart disease with heart failure; I50.9 Heart failure, unspecified; J44.9 Chronic obstructive pulmonary disease, unspecified; I25.10 Atherosclerotic heart disease of native coronary artery without angina pectoris; E78.5 Hyperlipidemia, unspecified; E11.9 Type 2 diabetes mellitus without complications; Z23 Encounter for immunization; Z20.3 Contact with and (suspected) exposure to rabies; Z29.14 Encounter for prophylactic rabies immune globulin
CPT/HCPCS: 90375; 90471; 90675; 96372; 99283

== ENCOUNTER 2021-04-17 12:28 | Emergency (ER) | payer MEDICARE, SELFPAY ==
[2021-04-17 12:55] VITALS: BP 186/99; PULSE 98; RESP 16; TEMP 36.5; O2SAT 93; BMI 38.9
[2021-04-17 12:58] VITALS: BP 186/99; PULSE 102; RESP 18; O2SAT 96
[2021-04-17] MEDS: rabies vaccine 2.5 unit SDV IM (13:10)
--- NOTE | 2021-04-17 13:17 | ED_ITS ---
HPI - Recheck/Abnormal Lab/Rx General: Chief Complaint: Recheck/Abnormal Lab/Rx Stated Complaint: second booster for rabies Time Seen by Provider: 04/17/21 12:32 History of Present Illness: HPI narrative: Presents for second series of rabies shots Review of Systems Const: Denies: fever(s) or chills Resp: Denies: dyspnea Psych: Denies: anxiety PFSH ED PFSH: Medical History (Updated 04/17/21 @ 13:07 by NATACHA Biggs) CHF (congestive heart failure), NYHA class III Chronic pain syndrome COPD (chronic obstructive pulmonary disease) History of coronary artery disease HTN (hypertension) Hx of deep venous thrombosis Hx pulmonary embolism Hyperlipidemia IBS (irritable bowel syndrome) Morbid obesity Obstructive sleep apnea PTSD (post-traumatic stress disorder) Traumatic brain injury Type 2 diabetes mellitus Surgical History History of back surgery S/P appendectomy S/P cholecystectomy S/P IVC filter S/P sinus surgery Social History Smoking and tobacco status: never smoked Alcohol intake: current Alcohol intake frequency: holidays/special occasions only Current occupational status: disabled Current gender identity: Male Physical Exam Const: COMMON NORMALS: no acute distress Psych: COMMON NORMALS: mental status grossly normal Skin: OTHER: No signs cellulitis Course Vital Signs: Vital signs: Vital Signs Temperature 97.7 F 04/17/21 12:55 Pulse Rate 98 04/17/21 12:55 Respiratory Rate 16 04/17/21 12:55 Blood Pressure 186/99 04/17/21 12:55 Pulse Oximetry 93 04/17/21 12:55 Discharge Plan Discharge Patient Disposition: Home Clinical Impression: Need for prophylactic vaccination against rabies Condition: Stable Prescriptions: No Action fluticasone propion-salmeterol [Advair Diskus] 100-50 mcg/dose blister with device 1 inh inhalation BID Qty: 1 RF: 3 albuterol sulfate [ProAir HFA] 90 mcg/actuation HFA aerosol inhaler 2 puff inhalation Q6H PRN (Reason: shortness of breath or wheezing) Qty: 6.7 RF: 3 (DME) pen needle, diabetic [Comfort EZ Pen [place]] 31 gauge x 1/4 needle See Rx Instructions .ROUTE .MEDSUPPLY Qty: 100 RF: 2 Levemir FlexTouch U-100 Insuln 100 unit/mL (3 mL) insulin pen 30 unit SUBCUT BID 90 Days Qty: 54 RF: 0 Jardiance 10 mg tablet 10 mg PO DAILY Qty: 90 RF: 0 (DME) blood-glucose meter [Accu-Chek Breanna Plus Meter] Misc See Rx Instructions .ROUTE .MEDSUPPLY Qty: 1 RF: 0 atorvastatin 10 mg tablet 10 mg PO DAILY Qty: 90 RF: 0 (DME) Accu-Chek Breanna Plus test strp Strip See Rx Instructions .ROUTE .MEDSUPPLY Qty: 100 RF: 3 (DME) lancets [Accu-Chek Multiclix Lancet] Misc See Rx Instructions .ROUTE .MEDSUPPLY Qty: 100 RF: 3 miscellaneous medical supply Misc 1 ea miscellaneous DAILY 30 Days Qty: 1 RF: 0 Augmentin 875-125 mg tablet 1 tab PO Q12H 7 Days Qty: 14 RF: 0 Discharge Orders: Discharge ED (Routine); Ordered 04/17/21 Ordered By: Sherwin Garcia Referrals: Rod Dubose, MOTOR VEHICLE EMISSIONS INSPECTOR [Primary Care Provider] - Discharge Diet: Usual diet Discharge Activity: Resume usual activity Activity Restrictions/Additional Instructions: Follow-up as scheduled for rabies vaccine Coding Level of Care Code ED Director Of Maintenance for Tori Rey
== END 2021-04-17 13:12 | disposition home or self-care (01) ==
PROVIDERS: Emergency Provider Nurse Practitioner Family; PCP Registered Nurse
DX: Z29.14 Encounter for prophylactic rabies immune globulin (principal); Z20.3 Contact with and (suspected) exposure to rabies; Z23 Encounter for immunization; Z79.4 Long term (current) use of insulin; I11.0 Hypertensive heart disease with heart failure; I50.9 Heart failure, unspecified; J44.9 Chronic obstructive pulmonary disease, unspecified; I25.10 Atherosclerotic heart disease of native coronary artery without angina pectoris; Z86.711 Personal history of pulmonary embolism; E78.5 Hyperlipidemia, unspecified; E11.9 Type 2 diabetes mellitus without complications
CPT/HCPCS: 90471; 90675; 99282

== ENCOUNTER 2021-04-20 19:10 | Emergency (ER) | payer MEDICARE, SELFPAY ==
[2021-04-20 19:28] VITALS: BP 173/112; PULSE 90; RESP 18; TEMP 36.2; O2SAT 97; BMI 38.9
--- NOTE | 2021-04-20 19:55 | ECG_ITS ---
[facility] Test Date: 2021-04-20 Pat Name: Robby Ramirez Department: Room: Gender: Male [place] Farmer: : 1975 Requested By: Lenny Navarro Order Number: [id number] Emily MD: Jose Ruth M.D. Measurements Intervals [place] Rate: 84 P: 45 AK: 164 QRS: 4 QRSD: 100 T: 10 QT: 367 QTc: 436 Interpretive Statements SINUS RHYTHM Compared to ECG 05/18/2020 13:05:06 Myocardial infarct finding no longer present Electronically Signed On 04-21-2021 20:02:13 CDT by Jose Ruth M.D. [id number]
--- NOTE | 2021-04-20 20:08 | W.ED.ALLEREA ---
HPI - Allergic Reaction General: Chief complaint: Allergic Reaction Stated complaint: Reaction from Rabies Shot Time Seen by Provider: 04/20/21 19:50 Source: patient Mode of arrival: ambulatory Limitations: no limitations History of Present Illness: HPI narrative: 45-year-old male who states that since he had his rabies vaccine 2 days ago has been having nausea and just feeling rundown and weak. He states he has had no vomiting or diarrhea or fevers. Denies any cough. He states he is just felt generally weak and has had low energy. He denies any worsening improving factors. Associated symptoms: Reports nausea Review of Systems Const: Denies: fever(s), chills, body aches or change in appetite Eyes: Denies: blurry vision or eye discomfort ENMT: Denies: throat pain or dental pain Card: Denies: chest pain Resp: Denies: dyspnea GI: Reports: nausea : Denies: dysuria Musc: Denies: neck pain or back pain Skin/Breast: Denies: rash Neuro: Denies: headache(s) Psych: Denies: depression Jared/Lymph: Denies: easy bruising All/Imm: Denies: urticaria PFSH ED PFSH: Medical History (Updated 04/20/21 @ 21:03 by Lenny Navarro MD) CHF (congestive heart failure), NYHA class III Chronic pain syndrome COPD (chronic obstructive pulmonary disease) History of coronary artery disease HTN (hypertension) Hx of deep venous thrombosis Hx pulmonary embolism Hyperlipidemia IBS (irritable bowel syndrome) Morbid obesity Obstructive sleep apnea PTSD (post-traumatic stress disorder) Traumatic brain injury Type 2 diabetes mellitus Surgical History History of back surgery S/P appendectomy S/P cholecystectomy S/P IVC filter S/P sinus surgery Social History Smoking and tobacco status: never smoked Alcohol intake: current Alcohol intake frequency: holidays/special occasions only Current occupational status: disabled Current gender identity: Male Physical Exam Const: COMMON NORMALS: no acute distress, patient oriented x3 and healthy appearing HENMT: COMMON NORMALS: normocephalic and atraumatic HEAD & SCALP: normocephalic and atraumatic Eye: COMMON NORMALS: Equal, round and reactive pupils present and EOMs intact bilaterally PUPIL: Yes Equal, round and reactive pupils present Neck/C-Spine: COMMON NORMALS: full ROM and supple Chest: COMMONS NORMALS: normal inspection of the chest and normal palpation of entire chest wall Resp: COMMON NORMALS: normal respiratory effort, No retractions, No use of accessory muscles and clear to auscultation bilaterally AUSCULTATION: clear to auscultation bilaterally Cardio: COMMON NORMALS: regular rate, regular rhythm and No murmurs present (Cardio) RATE: regular rate RHYTHM: regular rhythm GI: COMMON NORMALS: Normal to inspection, nondistended, normoactive bowel sounds present, Soft to palpation, non-tender and no masses PALPATION: Yes Soft to palpation Extremity: COMMON NORMALS: normal to inspection and full ROM Neuro: COMMON NORMALS: patient oriented x3, moves all extremities and no focal motor deficits Psych: COMMON NORMALS: mental status grossly normal, Normal thought process present and cooperative THOUGHT PROCESS: Normal thought process present Skin: COMMON NORMALS: no rashes or lesions noted and no wounds GENERAL SKIN EXAM: no rashes or lesions noted Course Vital Signs: Vital signs: Vital Signs Temperature 97.1 F L 04/20/21 19:28 Pulse Rate 90 04/20/21 19:28 Respiratory Rate 18 04/20/21 19:28 Blood Pressure 173/112 04/20/21 19:28 Pulse Oximetry 97 04/20/21 19:28 MDM - Allergic Reaction MDM Narrative: Medical decision making narrative: Patient presents here with nausea and general unwellness. He is well-appearing here with normal vital signs and blood work is normal. He feels improved after Zofran. Will prescribe him Zofran for home and he is stable for discharge. He is to follow-up his PCP in 2 to 4 days return if worsening. Lab Data: Labs: Lab Results 04/20/21 04/20/21 Range/Units 20:15 20:15 WBC 5.0 (4.0-10.0) 10^3/ uL RBC 4.66 (4.1-5.3) 10^6/u L Hgb 14.4 (11.7-16.6) g/dL Hct 42.8 (42.0-52.0) % MCV 91.8 (80-94) fL MCH 30.9 (28.0-34.0) pg MCHC 33.6 (30.0-36.0) g/dL RDW 12.9 (12.1-15.1) % Plt Count 157 (130-400) 10^3/c mm MPV 9.3 (7.4-10.4) fL Neut % (Auto) 47.6 % Lymph % (Auto) 39.2 % [facility] % (Auto) 8.6 % Eos % (Auto) 3.4 % Baso % (Auto) 1.0 % Neut # (Auto) 2.38 (1.8-7.7) 10^3/u L Lymph # (Auto) 2.0 (0.8-4.8) 10^3/u L [facility] # (Auto) 0.4 (0.2-0.9) 10^3/u L Eos # (Auto) 0.2 (0.0-0.8) 10^3/u L Baso # (Auto) 0.1 (0.0-0.1) 10^3/u L Nucleated RBC % (a uto) 0 % Nucleated RBCs # 0.0 /100WBC Sodium 139 (136-145) mmol/L Potassium 3.5 (3.5-5.1) mmol/L Chloride 102 (98-107) mmol/L Carbon Dioxide 25 (22-29) mmol/L Anion Gap 15.5 (5-19) BUN 8 (6-20) mg/dL Creatinine 0.7 (0.7-1.2) mg/dL GFR Calculation 121.4 (90-130) mL/min Calcium 9.1 (8.5-10.5) mg/dL Total Bilirubin 0.7 (0.15-1.2) mg/dL AST 20 (0-40) U/L ALT 24 (0-41) U/L Alkaline Phosphata se 90 (40-130) IU/L Total Protein 7.3 (6.6-8.7) g/dL Albumin 4.1 (3.5-5.2) g/dL Globulin 3.2 (1.3-4.6) g/dL EKG Data^: EKG 1: Attestation: I personally reviewed and interpreted this EKG as follows: EKG interpretation date: 04/20/21 EKG interpretation time: 20:01 Interpretation: nsr hr [address] or t wave abnormalities qrs 100 qtc 408 Discharge Plan Discharge Patient Disposition: Home Clinical Impression: Nausea Condition: Stable Prescriptions: New ondansetron 4 mg tablet,disintegrating 4 mg PO Q6H PRN (Reason: nausea and vomiting) Qty: 14 RF: 0 No Action fluticasone propion-salmeterol [Advair Diskus] 100-50 mcg/dose blister with device 1 inh inhalation BID Qty: 1 RF: 3 albuterol sulfate [ProAir HFA] 90 mcg/actuation HFA aerosol inhaler 2 puff inhalation Q6H PRN (Reason: shortness of breath or wheezing) Qty: 6.7 RF: 3 (DME) pen needle, diabetic [Comfort EZ Pen [place]] 31 gauge x 1/4 needle See Rx Instructions .ROUTE .MEDSUPPLY Qty: 100 RF: 2 Levemir FlexTouch U-100 Insuln 100 unit/mL (3 mL) insulin pen 30 unit SUBCUT BID 90 Days Qty: 54 RF: 0 Jardiance 10 mg tablet 10 mg PO DAILY Qty: 90 RF: 0 (DME) blood-glucose meter [Accu-Chek Breanna Plus Meter] Misc See Rx Instructions .ROUTE .MEDSUPPLY Qty: 1 RF: 0 atorvastatin 10 mg tablet 10 mg PO DAILY Qty: 90 RF: 0 (DME) Accu-Chek Breanna Plus test strp Strip See Rx Instructions .ROUTE .MEDSUPPLY Qty: 100 RF: 3 (DME) lancets [Accu-Chek Multiclix Lancet] Misc See Rx Instructions .ROUTE .MEDSUPPLY Qty: 100 RF: 3 miscellaneous medical supply Misc 1 ea miscellaneous DAILY 30 Days Qty: 1 RF: 0 Augmentin 875-125 mg tablet 1 tab PO Q12H 7 Days Qty: 14 RF: 0 Discharge Orders: Discharge ED (Routine); Ordered 04/20/21 Ordered By: Lenny Navarro Referrals: Rod Dubose FNP [Primary Care Provider] - 1-3 days Discharge Diet: Advance as tolerated Discharge Activity: Resume usual activity Patient Instructions: Acute Nausea and Vomiting (ED) Coding Level of Care Code ED Box Lining Machine Operator for g Fwd Exam Comprehensive
[2021-04-20] MEDS: sodium chloride 0.9% 1,000 ML 999 ML IV (20:13)
[2021-04-20] MEDS: ondansetron 2 mg/ML SDV 2 mL 4 MG IVP (20:15)
[2021-04-20 20:25] LABS: Basophils # 0.1 10^3/uL (0.0-0.1); Eosinophils # 0.2 10^3/uL (0.0-0.8); Eosinophils % 3.4 %; Hematocrit 42.8 % (42.0-52.0); Hemoglobin 14.4 g/dL (11.7-16.6); Lymphocytes % 39.2 %; Mean Corpuscular HGB Conc 33.6 g/dL (30.0-36.0); Mean Corpuscular Hemoglobin 30.9 pg (28.0-34.0); Mean Corpuscular Volume 91.8 fL (80-94); Mean Platelet Volume 9.3 fL (7.4-10.4); Monocytes # 0.4 10^3/uL (0.2-0.9); Monocytes % 8.6 %; Neutrophils # 2.38 10^3/uL (1.8-7.7); Neutrophils % 47.6 %; Nucleated Red Blood Cells % 0 %; Platelet Count 157 10^3/cmm (130-400); Red Blood Count 4.66 10^6/uL (4.1-5.3); Red Cell Distribution Width 12.9 % (12.1-15.1)
[2021-04-20 20:46] LABS: Alanine Aminotransferase 24 U/L (0-41); Albumin Level 4.1 g/dL (3.5-5.2); Alkaline Phosphatase 90 IU/L (40-130); Anion Gap 15.5 (5-19); Aspartate Amino Transferase 20 U/L (0-40); Blood Urea Nitrogen 8 mg/dL (6-20); Calcium 9.1 mg/dL (8.5-10.5); Carbon Dioxide 25 mmol/L (22-29); Chloride 102 mmol/L (98-107); Globulin 3.2 g/dL (1.3-4.6); Glomerular Filtration Rate 121.4 mL/min (90-130); Glucose 276 mg/dL (65-115); Osmolality Calculated 296 mOsm/kg (285-295); Potassium 3.5 mmol/L (3.5-5.1); Sodium 139 mmol/L (136-145); Total Bilirubin 0.7 mg/dL (0.15-1.2); Total Protein 7.3 g/dL (6.6-8.7)
[2021-04-20 21:37] VITALS: BP 131/78; PULSE 80; RESP 18; O2SAT 98
[2021-04-20 22:38] LABS: Glucose Point of Care 287 mg/dL (70-110)
== END 2021-04-20 21:39 | disposition home or self-care (01) ==
PROVIDERS: Emergency Provider Emergency Medicine; PCP Registered Nurse
DX: R11.0 Nausea (principal); Z79.4 Long term (current) use of insulin; I11.0 Hypertensive heart disease with heart failure; I50.9 Heart failure, unspecified; J44.9 Chronic obstructive pulmonary disease, unspecified; I25.10 Atherosclerotic heart disease of native coronary artery without angina pectoris; Z86.711 Personal history of pulmonary embolism; E78.5 Hyperlipidemia, unspecified; E11.9 Type 2 diabetes mellitus without complications
CPT/HCPCS: 36416; 80053; 82962; 85025; 93005; 96361; 96374; 99283; J2405; J7030

== ENCOUNTER 2022-12-14 13:21 | Emergency (ER) | payer MEDICARE, MEDICAID, SELFPAY ==
[2022-12-14 13:50] VITALS: BP 170/119; PULSE 105; TEMP 36.6; O2SAT 91; BMI 39.5
--- NOTE | 2022-12-14 14:41 | W.ED.GENADLT ---
HPI - General Adult General: Chief complaint: General Medical Stated complaint: Left leg swelling Time Seen by Provider: 12/14/22 14:40 History of Present Illness: Mr. Ramirez is a 46-year-old gentleman with complex past medical history including CHF, diabetes, status post right above-knee amputation presenting to the emergency department for left lower extremity swelling. He reports noticing worsening symptoms for approximately 1 week. Initially in the foot and then has since expanded up to his near groin. He has tried elevation without significant relief. He does not have good pain or other sensation and therefore is unsure of other symptoms. Denies other systemic signs of illness. No other specific changes in health, exacerbating, or alleviating factors identified. Onset (ago): day(s) Location: left and lower extremity Radiation: non-radiation Severity: mild Quality: aching Pain Consistency: other Relieving factors: none Exacerbating factors: none Associated symptoms: Reports no associated symptoms Review of Systems General: Reports: 10 or more systems reviewed and unremarkable except in HPI and below PFSH ED PFSH: Medical History CHF (congestive heart failure), NYHA class III Chronic pain syndrome COPD (chronic obstructive pulmonary disease) History of coronary artery disease HTN (hypertension) Hx of deep venous thrombosis Hx pulmonary embolism Hyperlipidemia IBS (irritable bowel syndrome) Morbid obesity Obstructive sleep apnea PTSD (post-traumatic stress disorder) Traumatic brain injury Type 2 diabetes mellitus Surgical History History of back surgery S/P appendectomy S/P cholecystectomy S/P IVC filter S/P sinus surgery Social History Smoking and tobacco status: never smoked Alcohol intake: current Alcohol intake frequency: holidays/special occasions only Current occupational status: disabled Current gender identity: Male Physical Exam Const: COMMON NORMALS: alert GENERAL APPEARANCE: cooperative, well developed and ill appearing (Chronically) HENMT: COMMON NORMALS: normocephalic and atraumatic HEAD & SCALP: normocephalic and atraumatic THROAT: posterior oropharynx normal Eye: COMMON NORMALS: conjunctivae normal CONJUNCTIVA: Yes conjunctivae normal SCLERA: sclerae normal Neck/C-Spine: COMMON NORMALS: supple GENERAL: Yes trachea midline Resp: COMMON NORMALS: No use of accessory muscles EFFORT & INSPECTION: Yes able to speak in complete sentences Cardio: COMMON NORMALS: regular rate and regular rhythm RATE: regular rate RHYTHM: regular rhythm GI: COMMON NORMALS: Soft to palpation PALPATION: Yes Soft to palpation and No Tenderness to palpation present (GI) Extremity: NARRATIVE EXTREMITY EXAM: Extremity no edema, edema to limited assessment secondary to prior BKA on the right. [facility] baseline. GENERAL: Yes normal exam except as noted and Yes edema Neuro: COMMON NORMALS: moves all extremities SENSORIUM/ORIENTATION: Yes alert and No Orientation impaired Psych: COMMON NORMALS: mental status grossly normal and Normal thought process present THOUGHT PROCESS: Normal thought process present Course Vital Signs: Vital signs: Vital Signs Temperature 97.9 F 12/14/22 13:50 Pulse Rate 93 12/14/22 16:30 Respiratory Rate 19 H 12/14/22 16:30 Blood Pressure 116/80 12/14/22 17:40 Pulse Oximetry 90 12/14/22 17:40 Oxygen Delivery Me thod 12/14/22 14:54 [facility] - General Adult Medical Decision Making 47-year-old gentleman from his history presenting with left lower extremity swelling. Started in the calf and has subsequently spread. No signs of systemic illness per patient is chronically ill appearing however nontoxic. No significant hematologic or metabolic abnormality compared to prior, mild hyponatremia. Patient appears to have extensive occlusive DVTs. This explains patient's swelling. No significant history of high risk bleeding. Patient comfortable and counseled on oral anticoagulation. Plan for outpatient follow-up and I will initiate the patient on Eliquis. The results of ED evaluation were discussed with the patient including prescriptions and/or symptomatic cares (if applicable) including appropriate and responsible use, followup plan, and return precautions. The patient verbalized understanding and felt safe for discharge. Medical Records I reviewed the patient's medical records. Lab Data I reviewed the patient's lab results. 12/14/22 15:35 12/14/22 15:35 Radiology Impressions Venous Duplex 12/14/22 15:01 IMPRESSION: Nonocclusive DVT within the common femoral vein and proximal aspect of the superficial femoral vein. Laboratory Results WBC 6.1 10^3/uL (4.0-10.0) 12/14/22 15:35 RBC 4.80 10^6/uL (4.1-5.3) 12/14/22 15:35 Hgb 13.2 g/dL (11.7-16.6) 12/14/22 15:35 Hct 40.5 % (42.0-52.0) L 12/14/22 15:35 MCV 84.4 fl (80-94) 12/14/22 15:35 MCH 27.5 pg (28.0-34.0) L 12/14/22 15: MCHC 32.6 g/dL (30.0-36.0) 12/14/22 15:35 RDW 14.1 % (12.1-15.1) 12/14/22 15:35 Plt Count 177 10^3/cmm (130-400) 12/14/22 15: MPV 9.7 fL (7.4-10.4) 12/14/22 15:35 Neut % (Auto) 49.5 % 12/14/22 15:35 Lymph % (Auto) 38.6 % 12/14/22 15:35 Gregg % (Auto) 8.2 % 12/14/22 15:35 Eos % (Auto) 2.8 % 12/14/22 15:35 Baso % (Auto) 0.7 % 12/14/22 15:35 Neut # (Auto) 3.01 10^3/uL (1.8-7.7) 12/14/22 15:35 Lymph # (Auto) 2.3 10^3/uL (0.8-4.8) 12/14/22 15:35 Gregg # (Auto) 0.5 10^3/uL (0.2-0.9) 12/14/22 15:35 Eos # (Auto) 0.2 10^3/uL (0.0-0.8) 12/14/22 15:35 Baso # (Auto) 0.0 10^3/uL (0.0-0.1) 12/14/22 15:35 Nucleated RBC % (auto) 0 % 12/14/22 15:35 Nucleated RBCs # 0.0 /100WBC 12/14/22 15:35 Sodium 133 mmol/L (136-145) L 12/14/22 15:35 Potassium 3.7 mmol/L (3.5-5.1) 02/15/23 15:35 Chloride 96 mmol/L (98-107) L 12/14/22 15:35 Carbon Dioxide 25 mmol/L (22-29) 12/14/22 15:35 Anion Gap 15.7 (5-19) 12/14/22 15:35 BUN 10 mg/dL (6-20) 12/14/22 15:35 Creatinine 0.6 mg/dL (0.7-1.2) L 12/14/22 15:35 GFR Calculation 144.4 mL/min (90-130) H 12/14/22 15:35 Glucose 354 mg/dL (65-115) H 12/14/22 15:35 Calculated Osmolality 289 mOsm/kg (285-295) 12/14/22 15:35 Calcium 8.9 mg/dL (8.5-10.5) 12/14/22 15:35 Total Bilirubin 0.3 mg/dL (0.15-1.2) 12/14/22 15:35 AST 12 U/L (0-40) 12/14/22 15:35 ALT 17 U/L (0-41) 12/14/22 15:35 Alkaline Phosphatase 89 U/L (40-130) 12/14/22 15:35 NT-Pro-B Natriuret Pep 36 pg/mL (0-125) 12/14/22 15:35 Total Protein 7.4 g/dL (6.6-8.7) 12/14/22 15:35 Albumin 3.6 g/dL (3.5-5.2) 12/14/22 15:35 Globulin 3.8 g/dL (1.3-4.6) 12/14/22 15:35 Discharge Plan Discharge Patient Disposition: Home Clinical Impression: DVT of lower limb, acute, Leg edema, left, Hyperglycemia due to type 2 diabetes mellitus Condition: Stable Prescriptions: [facility] D[facility]-PE Treat 30D Start 5 mg (74 tabs) tablets,dose pack See Rx Instructions .ROUTE .COMPLEX Qty: 74 0RF Rx Instructions: orally per package directions No Action fluticasone propion-salmeterol [Advair Diskus] 100-50 mcg/dose blister with device 1 inh inhalation BID Qty: 1 3RF albuterol sulfate [ProAir HFA] 90 mcg/actuation HFA aerosol inhaler 2 puff inhalation Q6H PRN (Reason: shortness of breath or wheezing) Qty: 6.7 3RF (DME) pen needle, diabetic [Comfort EZ Pen [place]] 31 gauge x 1/4 needle See Rx Instructions .ROUTE .MEDSUPPLY Qty: 100 2RF Rx Instructions: two times daily Levemir FlexTouch U-100 Insuln 100 unit/mL (3 mL) insulin pen 30 unit SUBCUT BID 90 Days Qty: 54 0RF Jardiance 10 mg tablet 10 mg PO DAILY Qty: 90 0RF (DME) blood-glucose meter [Accu-Chek Breanna Plus Meter] Misc See Rx Instructions .ROUTE .MEDSUPPLY Qty: 1 0RF Rx Instructions: Daily atorvastatin 10 mg tablet 10 mg PO DAILY Qty: 90 0RF (DME) Accu-Chek Breanna Plus test strp Strip See Rx Instructions .ROUTE .MEDSUPPLY Qty: 100 3RF Rx Instructions: three times daily (DME) lancets [Accu-Chek Multiclix Lancet] Misc See Rx Instructions .ROUTE .MEDSUPPLY Qty: 100 3RF Rx Instructions: three times daily miscellaneous medical supply Misc 1 ea miscellaneous DAILY 30 Days Qty: 1 0RF Rx Instructions: Power wheelchair repairs plus a ramp for said wheelchair. Order faxed to [facility] in [facility] ondansetron 4 mg tablet,disintegrating 4 mg PO Q6H PRN (Reason: nausea and vomiting) Qty: 14 0RF Discharge Orders: Discharge ED (Routine); Ordered 12/14/22 Ordered By: Javier Nevarez Referrals: Rod Dubose, SCREW EYE ASSEMBLER [Primary Care Provider] - Discharge Diet: Usual diet Discharge Activity: Increase activity as tolerated Activity Restrictions/Additional Instructions: Thank you for visiting the emergency department. You were seen and evaluated for leg swelling. You have multiple partially occlusive DVTs which may be the explanation for your symptoms. I will prescribe Eliquis. I will also message case management for outpatient follow-up. Return to the emergency department for bleeding, trauma, uncontrolled symptoms, shortness of breath or chest pain, or anything else that you are concerned about and feel needs emergency department evaluation. Coding Level of Care Code ED Satellite Tv Technician Installer for Tori Rey
[2022-12-14 14:54] VITALS: BP 120/71; PULSE 100; RESP 20; O2SAT 92
--- NOTE | 2022-12-14 15:01 | USR_ITS ---
PROCEDURE INFORMATION: Exam: US Duplex Left Lower Extremity Veins, Limited Exam date and time: 12/14/2022 3:50 PM Age: 46 years old Clinical indication: Swelling (edema) of limb; Lower extremity, left; Patient HX: HX of dvt, ms and occluded ivc filter; Additional info: Lle swelling TECHNIQUE: Imaging protocol: Real-time duplex ultrasound of the Left extremity with 2-D guillermo scale, color Doppler flow and spectral waveform analysis including responses to compression and other maneuvers (when performed) with image documentation. Limited exam focused on the left lower extremity veins. COMPARISON: CT kidney stone [id number] 08/31/2018 6:04 PM FINDINGS: Left deep veins: Nonocclusive thrombus noted within the common femoral vein and proximal aspect superficial femoral vein. The mid and distal aspect of the superficial femoral vein, popliteal vein, and calf veins appear patent. Left superficial veins: Unremarkable. Saphenofemoral junction is patent without thrombus. Soft tissues: Unremarkable. US/[place] [id number] IMPRESSION: Nonocclusive DVT within the common femoral vein and proximal aspect of the superficial femoral vein.
[2022-12-14 16:13] LABS: Basophils % 0.7 %; Eosinophils # 0.2 10^3/uL (0.0-0.8); Eosinophils % 2.8 %; Hematocrit 40.5 % (42.0-52.0); Hemoglobin 13.2 g/dL (11.7-16.6); Lymphocytes # 2.3 10^3/uL (0.8-4.8); Lymphocytes % 38.6 %; Mean Corpuscular HGB Conc 32.6 g/dL (30.0-36.0); Mean Corpuscular Hemoglobin 27.5 pg (28.0-34.0); Mean Corpuscular Volume 84.4 fl (80-94); Mean Platelet Volume 9.7 fL (7.4-10.4); Monocytes # 0.5 10^3/uL (0.2-0.9); Monocytes % 8.2 %; Neutrophils # 3.01 10^3/uL (1.8-7.7); Neutrophils % 49.5 %; Nucleated Red Blood Cells % 0 %; Platelet Count 177 10^3/cmm (130-400); Red Cell Distribution Width 14.1 % (12.1-15.1); White Blood Count 6.1 10^3/uL (4.0-10.0)
[2022-12-14 16:30] VITALS: BP 138/81; PULSE 93; RESP 19; O2SAT 90
[2022-12-14 16:52] LABS: Alanine Aminotransferase 17 U/L (0-41); Albumin Level 3.6 g/dL (3.5-5.2); Alkaline Phosphatase 89 U/L (40-130); Anion Gap 15.7 (5-19); Aspartate Amino Transferase 12 U/L (0-40); Blood Urea Nitrogen 10 mg/dL (6-20); Calcium 8.9 mg/dL (8.5-10.5); Carbon Dioxide 25 mmol/L (22-29); Chloride 96 mmol/L (98-107); Globulin 3.8 g/dL (1.3-4.6); Glomerular Filtration Rate 144.4 mL/min (90-130); Glucose 354 mg/dL (65-115); NT Pro B Type Natriuretic Pept 36 pg/mL (0-125); Osmolality Calculated 289 mOsm/kg (285-295); Potassium 3.7 mmol/L (3.5-5.1); Sodium 133 mmol/L (136-145); Total Bilirubin 0.3 mg/dL (0.15-1.2); Total Protein 7.4 g/dL (6.6-8.7)
[2022-12-14 17:40] VITALS: BP 116/80; O2SAT 90
== END 2022-12-14 17:42 | disposition home or self-care (01) ==
PROVIDERS: Emergency Provider Emergency Medicine; PCP Registered Nurse
DX: I82.412 Acute embolism and thrombosis of left femoral vein (principal); E11.65 Type 2 diabetes mellitus with hyperglycemia; E87.1 Hypo-osmolality and hyponatremia
CPT/HCPCS: 36415; 80053; 83880; 85025; 93971; 99284

== ENCOUNTER 2023-04-20 20:43 | Emergency (ER) | payer MEDICARE, MEDICAID, SELFPAY ==
[2023-04-20 20:45] VITALS: BP 161/99; PULSE 103; RESP 20; TEMP 37.4; O2SAT 97; BMI 36.5
[2023-04-20 20:50] VITALS: PULSE 101; RESP 16; O2SAT 97
--- NOTE | 2023-04-20 20:51 | XRR_ITS ---
PROCEDURE INFORMATION: Exam: XR Chest Exam date and time: 04/20/2023 9:02 PM Age: 47 years old Clinical indication: Other: AMS TECHNIQUE: Imaging protocol: Radiologic exam of the chest. Views: 1 view. COMPARISON: CR XR chest 1V portable [id number] 05/18/2020 11:22 AM FINDINGS: Lungs: Unremarkable. No consolidation. Pleural spaces: Unremarkable. No pleural effusion. No pneumothorax. Heart/Mediastinum: Unremarkable. No cardiomegaly. Bones/joints: Unremarkable. XR/XR chest 1V portable [id number] IMPRESSION: No acute findings.
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
[2023-04-20] MEDS: acetaminophen 325 mg Tablet 650 MG PO (21:05)
--- NOTE | 2023-04-20 21:10 | ECG_ITS ---
[facility] Test Date: 2023-04-20 Pat Name: Robby Ramirez Department: Room: Gender: Male Logistics Project Manager: : 1975 Requested By: Lenny Navarro Order Number: [id number] Emily MD: Vamshi Duckworth M.D. Measurements Intervals [place] Rate: 104 P: 18 MI: 156 QRS: -23 QRSD: 98 T: 18 QT: 339 QTc: 447 Interpretive Statements SINUS TACHYCARDIA POSSIBLE ANTERIOR MYOCARDIAL INFARCTION , OF INDETERMINATE AGE [30 ms Q WAVE IN V3/V4, OR R < 0.2 mV IN V4] Compared to ECG 04/20/2021 20:01:24 Myocardial infarct finding now present Sinus rhythm no longer present Electronically Signed On 04-21-2023 8:43:44 CDT by Vamshi Duckworth M.D. [email or web address]
[2023-04-20 21:20] VITALS: BP 154/54; PULSE 100; RESP 15; O2SAT 97
[2023-04-20 21:24] LABS: Alanine Aminotransferase 27 U/L (0-41); Albumin Level 3.8 g/dL (3.5-5.2); Alkaline Phosphatase 111 U/L (40-130); Anion Gap 16.3 (5-19); Aspartate Amino Transferase 18 U/L (0-40); Blood Urea Nitrogen 13 mg/dL (6-20); Calcium 9.5 mg/dL (8.5-10.5); Carbon Dioxide 26 mmol/L (22-29); Chloride 101 mmol/L (98-107); Globulin 3.7 g/dL (1.3-4.6); Glomerular Filtration Rate 103.2 mL/min (90-130); Glucose 400 mg/dL (65-115); Osmolality Calculated 305 mOsm/kg (285-295); Potassium 4.3 mmol/L (3.5-5.1); Sodium 139 mmol/L (136-145); Total Bilirubin 0.5 mg/dL (0.15-1.2); Total Protein 7.5 g/dL (6.6-8.7)
[2023-04-20 21:50] VITALS: BP 156/95; PULSE 102; RESP 16; O2SAT 96
[2023-04-20 22:03] VITALS: RESP 18
[2023-04-20 22:46] LABS: Glucose Point of Care 380 mg/dL (70-110)
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
== END 2023-04-20 22:03 | disposition left against medical advice (07) ==
PROVIDERS: Emergency Provider Emergency Medicine; PCP Registered Nurse
DX: E11.65 Type 2 diabetes mellitus with hyperglycemia (principal); Z53.21 Procedure and treatment not carried out due to patient leaving prior to being seen by health care provider; Z79.4 Long term (current) use of insulin; I11.0 Hypertensive heart disease with heart failure; I50.9 Heart failure, unspecified; J44.9 Chronic obstructive pulmonary disease, unspecified; I25.10 Atherosclerotic heart disease of native coronary artery without angina pectoris; Z86.711 Personal history of pulmonary embolism; E78.5 Hyperlipidemia, unspecified; Z87.820 Personal history of traumatic brain injury
CPT/HCPCS: 36416; 71045; 80053; 82962; 85025; 93005; 99285

== ENCOUNTER 2023-04-21 18:52 | Emergency (ER) | payer MEDICARE, MEDICAID, SELFPAY ==
[2023-04-21] VITALS (7 sets, daily range): BP systolic 108–135; BP diastolic 78–101; PULSE 80–99; RESP 14–21; TEMP 36.5; O2SAT 21–95; BMI 36.5
--- NOTE | 2023-04-21 19:33 | XRR_ITS ---
PROCEDURE INFORMATION: Exam: XR Chest Exam date and time: 04/21/2023 8:31 PM Age: 47 years old Clinical indication: Other: AMS; Additional info: Altered mental status TECHNIQUE: Imaging protocol: Radiologic exam of the chest. Views: 1 view. COMPARISON: CR (CHEST, ) 04/20/2023 9:02 PM FINDINGS: Lungs: No consolidation. Pleural spaces: No pleural effusion. No pneumothorax. Heart/Mediastinum: No cardiomegaly. Bones/joints: No acute fracture. XR/XR chest 1V portable [id number] IMPRESSION: No acute cardiopulmonary findings.
--- NOTE | 2023-04-21 19:38 | ED_ITS ---
HPI - Extremity Problem General: Chief complaint: Extremity Injury, Lower Stated complaint: pain in stumb, per pd pt is SI Time Seen by Provider: 04/21/23 18:58 History of Present Illness: Patient presents to the ER by EMS with complaints of taking approximately 10 to 20 mg oxycodones and attempt to stop his right lower extremity stump pain. Patient says this was not a attempt for suicide. Patient said he is never taken this many before but he still in pain. EMS may have gave him a milligram of Dilaudid this is unclear. Patient states he took these pills around 3 to 4 hours ago. Patient states he is now out of pain pills and they did not help his pain. Patient is very groggy and drowsy but does answer questions appropriately. Review of Systems General: Reports: 10 or more systems reviewed and unremarkable except in HPI and below PFSH ED PFSH: Medical History CHF (congestive heart failure), NYHA class III Chronic pain syndrome COPD (chronic obstructive pulmonary disease) History of coronary artery disease HTN (hypertension) Hx of deep venous thrombosis Hx pulmonary embolism Hyperlipidemia IBS (irritable bowel syndrome) Morbid obesity Obstructive sleep apnea PTSD (post-traumatic stress disorder) Traumatic brain injury Type 2 diabetes mellitus Surgical History History of back surgery S/P appendectomy S/P cholecystectomy S/P IVC filter S/P sinus surgery Social History Smoking and tobacco status: never smoked Alcohol intake: current Alcohol intake frequency: holidays/special occasions only Substance/Drug Use: never Current occupational status: disabled Current gender identity: Male Physical Exam Const: COMMON NORMALS: no acute distress, patient oriented x3, no limitations, alert and well nourished HENMT: COMMON NORMALS: normocephalic, atraumatic, hearing grossly normal bilaterally, external ears normal, Normal external nose present and moist oral mucous membranes HEAD & SCALP: normocephalic and atraumatic NOSE: Normal external nose present EXTERNAL EAR: Yes external ears normal Eye: COMMON NORMALS: Equal, round and reactive pupils present, EOMs intact bilaterally, conjunctivae normal and no scleral icterus CONJUNCTIVA: Yes conjunctivae normal PUPIL: Yes Equal, round and reactive pupils present Neck/C-Spine: COMMON NORMALS: full ROM, no lymphadenopathy, supple, no meningeal signs, no JVD and Thyroid normal THYROID: Thyroid normal Chest: COMMONS NORMALS: normal inspection of the chest and normal palpation of entire chest wall Resp: COMMON NORMALS: normal respiratory effort, No retractions, No use of accessory muscles and clear to auscultation bilaterally AUSCULTATION: clear to auscultation bilaterally Cardio: COMMON NORMALS: no JVD, regular rate, regular rhythm, S1 normal heart sound present, S2 normal heart sound present, No gallops present (Cardio), No clicks present (Cardio), No murmurs present (Cardio) and No rub (Cardio) RATE: regular rate RHYTHM: regular rhythm HEART SOUNDS: S1 normal heart sound present and S2 normal heart sound present GI: COMMON NORMALS: Normal to inspection, nondistended, normoactive bowel sounds present, Soft to palpation, non-tender, No hepatosplenomegaly present and no masses PALPATION: Yes Soft to palpation and Yes No hepatosplenomegaly present : COMMON NORMALS: Yes no CVA tenderness BLADDER/KIDNEY EXAM: Yes no CVA tenderness Back/Pelvis: COMMON NORMALS: no CVA tenderness Extremity: NARRATIVE EXTREMITY EXAM: Right below the knee amputation, left lower extremity edema noted. Neuro: COMMON NORMALS: patient oriented x3 SENSORIUM/ORIENTATION: Yes alert MENINGEAL SIGNS: Yes no meningeal signs Course Vital Signs: Vital signs: Vital Signs Temperature 97.7 F 04/21/23 19:01 Pulse Rate 98 04/21/23 21:07 Respiratory Rate 15 04/21/23 21:07 Blood Pressure 128/90 04/21/23 21:07 Pulse Oximetry 93 04/21/23 21:07 Oxygen Delivery Me thod Room Air 04/21/23 21:07 Oxygen Flow Rate 2 04/21/23 19:01 MDM - Extremity (Nontraumatic) Medical Decision Making Patient presents to the ER with complaints of accidentally taking too many of his oxycodone secondary to pain in his right lower extremity stump. Physical exam was performed lab work was obtained. Patient was deemed not to be suicidal homicidal as he adamantly these allegations. Patient will be discharged home. Patient is to follow-up with his family practice physician for further evaluation and treatment Differential Diagnosis Unlikely herpes zoster, gout, cellulitis, superficial thrombophlebitis, deep venous thrombosis of upper extremity, lower extremity edema or deep vein thrombosis of lower extremity Medical Records I reviewed the patient's medical records. Lab Data I reviewed the patient's lab results. 04/21/23 19:15 04/21/23 19:15 Radiology Impressions Chest X-Ray 04/21/23 19:33 IMPRESSION: No acute cardiopulmonary findings. Laboratory Results WBC 7.7 10^3/uL (4.0-10.0) 04/21/23 19:15 RBC 5.15 10^6/uL (4.1-5.3) 04/21/23 19:15 Hgb 14.7 g/dL (11.7-16.6) 04/21/23 19:15 Hct 45.0 % (42.0-52.0) 04/21/23 19:15 MCV 87.4 fl (80-94) 04/21/23 19:15 MCH 28.5 pg (28.0-34.0) 04/21/23 19:15 MCHC 32.7 g/dL (30.0-36.0) 04/21/23 19:15 RDW 13.2 % (12.1-15.1) 04/21/23 19:15 Plt Count 159 10^3/cmm (130-400) 04/21/23 19:15 MPV 9.5 fL (7.4-10.4) 04/21/23 19:15 Neut % (Auto) 59.8 % 04/21/23 19:15 Lymph % (Auto) 30.5 % 04/21/23 19:15 Bland % (Auto) 7.3 % 04/21/23 19:15 Eos % (Auto) 1.6 % 04/21/23 19:15 Baso % (Auto) 0.7 % 04/21/23 19:15 Neut # (Auto) 4.58 10^3/uL (1.8-7.7) 04/21/23 19:15 Lymph # (Auto) 2.3 10^3/uL (0.8-4.8) 04/21/23 19:15 Bland # (Auto) 0.6 10^3/uL (0.2-0.9) 04/21/23 19:15 Eos # (Auto) 0.1 10^3/uL (0.0-0.8) 04/21/23 19:15 Baso # (Auto) 0.1 10^3/uL (0.0-0.1) 04/21/23 19:15 Nucleated RBC % (auto) 0 % 04/21/23 19:15 Nucleated RBCs # 0.0 /100WBC 04/21/23 19:15 Sodium 137 mmol/L (136-145) 04/21/23 19:15 Potassium 4.0 mmol/L (3.5-5.1) 04/21/23 19:15 Chloride 100 mmol/L (98-107) 04/21/23 19:15 Carbon Dioxide 25 mmol/L (22-29) 04/21/23 19:15 Anion Gap 16.0 (5-19) 04/21/23 19:15 BUN 12 mg/dL (6-20) 04/21/23 19:15 Creatinine 0.7 mg/dL (0.7-1.2) 04/21/23 19:15 GFR Calculation 120.4 mL/min (90-130) 04/21/23 19:15 Glucose 297 mg/dL (65-115) H 04/21/23 19:15 POC Glucose 322 mg/dL (70-110) H 04/21/23 21:02 Calculated Osmolality 295 mOsm/kg (285-295) 04/21/23 19:15 Calcium 8.8 mg/dL (8.5-10.5) 04/21/23 19:15 Total Bilirubin 0.6 mg/dL (0.15-1.2) 04/21/23 19:15 AST 21 U/L (0-40) 04/21/23 19:15 ALT 24 U/L (0-41) 04/21/23 19:15 Alkaline Phosphatase 98 U/L (40-130) 04/21/23 19:15 Total Protein 7.4 g/dL (6.6-8.7) 04/21/23 19:15 Albumin 3.9 g/dL (3.5-5.2) 04/21/23 19:15 Globulin 3.5 g/dL (1.3-4.6) 04/21/23 19:15 Salicylates < 0.3 mg/dL (3-10) L 04/21/23 19:15 Acetaminophen < 5.0 ug/mL (10-30) L 04/21/23 19:15 Ethyl Alcohol < 10 mg/dL (0-10) 04/21/23 19:15 EKG Data EKG 1: I personally reviewed and interpreted this EKG as follows: EKG interpretation date: 04/21/23 EKG interpretation time: 20:37 Prior EKG tracings: not available for review Interpretation: EKG showed normal sinus rhythm with ventricular rate 94 bpm, AK interval 195, QRS duration 98, QTc of 422, possible anterior [place] of indeterminate age with Q waves in V3 and V4. Discharge Plan Discharge Patient Disposition: Home Clinical Impression: Accidental overdose Qualifiers: Encounter type: initial encounter Qualified Code(s): T50.901A - Poisoning by unspecified drugs, medicaments and biological substances, accidental (unintentional), initial encounter Condition: Stable Prescriptions: No Action fluticasone propion-salmeterol [Advair Diskus] 100-50 mcg/dose blister with device 1 inh inhalation BID Qty: 1 3RF albuterol sulfate [ProAir HFA] 90 mcg/actuation HFA aerosol inhaler 2 puff inhalation Q6H PRN (Reason: shortness of breath or wheezing) Qty: 6.7 3RF (DME) pen needle, diabetic [Comfort EZ Pen Tilly] 31 gauge x 1/4 needle See Rx Instructions .ROUTE .MEDSUPPLY Qty: 100 2RF Rx Instructions: two times daily Levemir FlexTouch U-100 Insuln 100 unit/mL (3 mL) insulin pen 30 unit SUBCUT BID 90 Days Qty: 54 0RF Jardiance 10 mg tablet 10 mg PO DAILY Qty: 90 0RF (DME) blood-glucose meter [Accu-Chek Breanna Plus Meter] Misc See Rx Instructions .ROUTE .MEDSUPPLY Qty: 1 0RF Rx Instructions: Daily atorvastatin 10 mg tablet 10 mg PO DAILY Qty: 90 0RF (DME) Accu-Chek Breanna Plus test strp Strip See Rx Instructions .ROUTE .MEDSUPPLY Qty: 100 3RF Rx Instructions: three times daily (DME) lancets [Accu-Chek Multiclix Lancet] Misc See Rx Instructions .ROUTE .MEDSUPPLY Qty: 100 3RF Rx Instructions: three times daily miscellaneous medical supply Misc 1 ea miscellaneous DAILY 30 Days Qty: 1 0RF Rx Instructions: Power wheelchair repairs plus a ramp for said wheelchair. Order faxed to [facility] in [place] ondansetron 4 mg tablet,disintegrating 4 mg PO Q6H PRN (Reason: nausea and vomiting) Qty: 14 0RF Eliquis DVT-PE Treat 30D Start 5 mg (74 tabs) tablets,dose pack See Rx Instructions .ROUTE .COMPLEX Qty: 74 0RF Rx Instructions: orally per package directions Discharge Orders: Discharge ED (Routine); Ordered 04/21/23 Ordered By: Flo Tomlinson Referrals: Rod Dubose, DESIGN ENGINEERING MANAGER [Primary Care Provider] - 1 week Patient Instructions: Prescription Opioid Overdose (ED), Opioid Safety, Pain Management Activity Restrictions/Additional Instructions: Please follow-up with your family practice physician within the next 1 week to discuss further evaluation and treatment of your pain. Please do not take any more medicine than what is prescribed for you and how it was prescribed for you. Coding Level of Care Code ED Central Sterile Technician for Tori Rey
[2023-04-21 19:43] LABS: Basophils # 0.1 10^3/uL (0.0-0.1); Basophils % 0.7 %; Eosinophils # 0.1 10^3/uL (0.0-0.8); Eosinophils % 1.6 %; Hemoglobin 14.7 g/dL (11.7-16.6); Lymphocytes # 2.3 10^3/uL (0.8-4.8); Lymphocytes % 30.5 %; Mean Corpuscular HGB Conc 32.7 g/dL (30.0-36.0); Mean Corpuscular Hemoglobin 28.5 pg (28.0-34.0); Mean Corpuscular Volume 87.4 fl (80-94); Mean Platelet Volume 9.5 fL (7.4-10.4); Monocytes # 0.6 10^3/uL (0.2-0.9); Monocytes % 7.3 %; Neutrophils # 4.58 10^3/uL (1.8-7.7); Neutrophils % 59.8 %; Nucleated Red Blood Cells % 0 %; Platelet Count 159 10^3/cmm (130-400); Red Blood Count 5.15 10^6/uL (4.1-5.3); Red Cell Distribution Width 13.2 % (12.1-15.1); White Blood Count 7.7 10^3/uL (4.0-10.0)
[2023-04-21 19:52] LABS: Alanine Aminotransferase 24 U/L (0-41); Albumin Level 3.9 g/dL (3.5-5.2); Alkaline Phosphatase 98 U/L (40-130); Aspartate Amino Transferase 21 U/L (0-40); Blood Urea Nitrogen 12 mg/dL (6-20); Calcium 8.8 mg/dL (8.5-10.5); Carbon Dioxide 25 mmol/L (22-29); Chloride 100 mmol/L (98-107); Globulin 3.5 g/dL (1.3-4.6); Glomerular Filtration Rate 120.4 mL/min (90-130); Glucose 297 mg/dL (65-115); Osmolality Calculated 295 mOsm/kg (285-295); Salicylate < 0.3 mg/dL (3-10); Sodium 137 mmol/L (136-145); Total Bilirubin 0.6 mg/dL (0.15-1.2); Total Protein 7.4 g/dL (6.6-8.7)
[2023-04-21 19:53] LABS: Acetaminophen < 5.0 ug/mL (10-30); Alcohol Level < 10 mg/dL (0-10)
--- NOTE | 2023-04-21 20:00 | PC.NURSE ---
RN to bedside to administer fluids ordered. Pt agitated taking of vital monitor. Pt stated not another one of you mother fuckers will touch me . Security and MD called to bedside. Pt is refusing vitals and fluids at this time.
--- NOTE | 2023-04-21 20:37 | ECG_ITS ---
[facility] Test Date: 2023-04-21 Pat Name: Robby Ramirez Department: Room: Gender: Male Policy Director: : 1975 Requested By: Flo Tomlinson Order Number: [id number] Emily MD: Vamshi Duckworth M.D. Measurements Intervals [place] Rate: 94 P: 17 ID: [id number] QRS: -24 QRSD: 98 T: 11 QT: 370 QTc: 465 Interpretive Statements SINUS RHYTHM POSSIBLE ANTERIOR MYOCARDIAL INFARCTION , OF INDETERMINATE AGE [30 ms Q WAVE IN V3/V4, OR R < 0.2 mV IN V4] Compared to ECG 04/20/2023 21:10:55 Sinus tachycardia no longer present Myocardial infarct finding still present Electronically Signed On 04-21-2023 21:12:36 CDT by Vamshi Duckworth M.D. [email or web address]
[2023-04-21 21:08] LABS: Glucose Point of Care 322 mg/dL (70-110)
[2023-04-21] MEDS: sodium chloride 0.9% 1,000 ML 999 ML IV (21:09)
[2023-04-22] VITALS: BP 125/74; PULSE 77; RESP 12; O2SAT 96
[2023-04-22 00:30] VITALS: BP 127/87; PULSE 79; RESP 16; O2SAT 94
[2023-04-22 01:00] VITALS: BP 127/77; PULSE 76; RESP 22; O2SAT 95
[2023-04-22 01:30] VITALS: BP 121/89; PULSE 76; RESP 18; O2SAT 98
[2023-04-22 02:00] VITALS: BP 126/81; PULSE 78; RESP 19; O2SAT 96
[2023-04-22 02:13] VITALS: BP 130/98; PULSE 82; RESP 15; O2SAT 99
[2023-04-23 11:37] LABS: Glucose Point of Care 310 mg/dL (70-110)
[2023-04-23 20:35] LABS: Glucose Point of Care 419 mg/dL (70-110)
[2023-04-24 12:27] LABS: Glucose Point of Care 355 mg/dL (70-110)
== END 2023-04-22 02:16 | disposition home or self-care (01) ==
PROVIDERS: Emergency Provider Emergency Medicine; PCP Registered Nurse
DX: T40.2X1A Poisoning by other opioids, accidental (unintentional), initial encounter (principal); Z79.85 Long-term (current) use of injectable non-insulin antidiabetic drugs; Z79.4 Long term (current) use of insulin; I11.0 Hypertensive heart disease with heart failure; I50.9 Heart failure, unspecified; J44.9 Chronic obstructive pulmonary disease, unspecified; I25.10 Atherosclerotic heart disease of native coronary artery without angina pectoris; Z86.711 Personal history of pulmonary embolism; E78.5 Hyperlipidemia, unspecified; E11.9 Type 2 diabetes mellitus without complications; Z87.820 Personal history of traumatic brain injury
CPT/HCPCS: 36416; 71045; 80053; 80307; 82962; 85025; 93005; 96360; 99285; J7030

== ENCOUNTER 2023-04-22 04:25 | Inpatient (IN) | payer MEDICARE, MEDICAID, SELFPAY ==
[2023-04-22 04:35] VITALS: BP 124/89; PULSE 98; RESP 20; TEMP 36.6; O2SAT 98; BMI 33.7
--- NOTE | 2023-04-22 05:32 | ED.C_ITS ---
HPI - Psych General: Chief Complaint: Psychiatric Symptoms Stated Complaint: Mental Health Eval Time Seen by Provider: 04/22/23 04:37 Source: patient, RN notes reviewed, old records reviewed and police History of Present Illness: 47 year old gentleman who's been seen for the third time now in the past 36 hours or so. He presents stating that he wishes to harm himself, and possibly others. He was discharged after a period of somnolence from taking too many oxycodone last night. He evidently was not suicidal at that point. He has sat out in the waiting room all night, and most of the morning. At one point he attempted to a braid his wrists with a soda can tab. He threatened a couple of people in the lobby with bodily harm if they approached him. He also has called our nurses in the neuropsychiatric unit and threatened to harm himself to them, stating that he wished to be seen and evaluated there. The police were called after the patient had made threats in the lobby, and on their interview, he has told them that he is having a lot of problems and wants to go to the stress unit . MD complaint: suicidal ideation Onset (ago): hour(s) Duration: constant History of same: Yes Relieving factors: none Exacerbating factors: none Context: recent drug abuse Associated psychiatric symptoms: depression and suicidal ideation Associated symptoms: Reports depression, homicidal ideation and suicidal ideation; Deny auditory hallucinations or visual hallucinations Treatments prior to arrival: none If self harm: admits thoughts of self harm and has acted on plan Review of Systems Const: Denies: fever(s) Eyes: Denies: change in vision ENMT: Denies: throat pain Card: Denies: chest pain Resp: Denies: dyspnea GI: Denies: vomiting Skin/Breast: Reports: rash Psych: Reports: depression, suicidal ideation and homicidal ideation; Denies: visual hallucinations or auditory hallucinations [facility] [place] ED PFSH: Medical History CHF (congestive heart failure), NYHA class III Chronic pain syndrome COPD (chronic obstructive pulmonary disease) History of coronary artery disease HTN (hypertension) Hx of deep venous thrombosis Hx pulmonary embolism Hyperlipidemia IBS (irritable bowel syndrome) Morbid obesity Obstructive sleep apnea PTSD (post-traumatic stress disorder) Traumatic brain injury Type 2 diabetes mellitus Surgical History History of back surgery S/P appendectomy S/P cholecystectomy S/P IVC filter S/P sinus surgery Social History Smoking and tobacco status: never smoked Alcohol intake: current Alcohol intake frequency: holidays/special occasions only Substance/Drug Use: never Current occupational status: disabled Current gender identity: Male Physical Exam Const: GENERAL APPEARANCE: disheveled and lethargic; not ill appearing NUTRITIONAL APPEARANCE: obese ORIENTATION/CONSCIOUSNESS: Yes oriented to person, Yes oriented to place, Yes oriented to time and Yes lethargic HENMT: COMMON NORMALS: normocephalic and atraumatic HEAD & SCALP: normocephalic and atraumatic FACE & SINUS: normal facial exam Eye: COMMON NORMALS: Equal, round and reactive pupils present and EOMs intact bilaterally PUPIL: Yes Equal, round and reactive pupils present Chest: CHEST: Yes Symmetrical chest wall rise Resp: COMMON NORMALS: normal respiratory effort, No retractions, No use of accessory muscles and clear to auscultation bilaterally AUSCULTATION: clear to auscultation bilaterally Cardio: COMMON NORMALS: regular rate and regular rhythm RATE: regular rate RHYTHM: regular rhythm GI: COMMON NORMALS: Normal to inspection, nondistended, normoactive bowel sounds present and Soft to palpation PALPATION: Yes Soft to palpation Neuro: ONUR COMA SCALE: document GCS findings Onur coma scale eye opening: Spontaneous [place] coma scale verbal response: Orientated Onur coma scale motor response: Obey commands Onur coma scale total score: 15 SENSORIUM/ORIENTATION: Yes oriented to person, Yes oriented to place, Yes oriented to time and Yes lethargic Psych: COMMON NORMALS: speech normal ATTITUDE: Yes calm (currently) ACTIVITY/MOTOR BEHAVIOR: Yes psychomotor slowing SPEECH: Yes normal speech MOOD & AFFECT: Yes depressed mood Course Vital Signs: Vital signs: Vital Signs Temperature 98 F 04/22/23 04:35 Pulse Rate 98 04/22/23 04:35 Respiratory Rate 20 H 04/22/23 04:35 Blood Pressure 124/89 04/22/23 04:35 Pulse Oximetry 98 04/22/23 04:35 Oxygen Delivery Me thod Room Air 04/22/23 06:07 MDM - Psych Medical Decision Making This patient is still quite somnolent at least most of the time. He wishes to be seen and evaluated in an inpatient setting by psychiatry. He has made threats to both himself and others. He is told by my staff that no further threats to the staff or nursing will be tolerated whatsoever, and he will go to half-way for such threats. His laboratory was completed on his prior visit less than 8 hours ago. It is not remarkable. He has been in the lobby since his discharge, and has not ingested any illicit substances or alcohol there. Medically, he is quite stable. I spoke with psychiatry. They're willing to had met for evaluation. Because of his prior threats, he'll be placed under a 96 hour hold until psychiatry has the chance to evaluate him. Affidavit has been written and signed by the [facility] nurse he had spoken with prior. Discharge Plan Discharge Patient Disposition: Admitted As Inpatient Admit Provider: Eliseo Smith Clinical Impression: Suicidal ideation Condition: Stable Coding Level of Care Code ED Hydraulic Specialist for Tori Rey
--- NOTE | 2023-04-22 05:45 | PC.NURSE ---
96 Hour Hold Patient Rights have been read to patient and a copy of the same was given to him. Mule Spinner Jerome Smith was present at bedside at the time of reading.
[2023-04-22 06:07] VITALS: BMI 33.7
[2023-04-22 08:14] LABS: Glucose Point of Care 310 mg/dL (70-110)
[2023-04-22] MEDS: insulin lispro 100 unit/1 mL SUBCUT ×3 (08:46→21:23)
--- NOTE | 2023-04-22 10:10 | PC.NURSE ---
PT CURRENTLY DENIES SI/HI/VH/AH. PT WAS DIFFICULT TO AROSE FOR BREAKFAST BUT DID GET UP AND EAT. PT REQUESTED THE ARM RESTS OF THE WHEELCHAIR BE TAKEN OFF TO ACCOMMODATE HIM THIS IS HOW HE HAS HIS AT HOME TO BE ABLE TO SELF TRANSFER. PT CURRENT NEEDS ARE MET. WILL CONTINUE TO MONITOR.
[2023-04-22 11:57] LABS: Glucose Point of Care 285 mg/dL (70-110)
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
[2023-04-22 14:00] VITALS: BP 104/72; PULSE 106; RESP 18; TEMP 36.5; O2SAT 95
--- NOTE | 2023-04-22 14:05 | W.PM.BREST ---
Face to Face: Restrn/Seclusion Events leading up to initiation: Verbalizing threat to self or others Evaluation of patient's immediate situation: Alert and oriented and Signs of psychological distress Patient reaction since intervention applied: De-escalation/no displays of violent/destructive behavior Recent labs reviewed: Yes Review of medications: Yes Patient's current medical/behavioral condition: No new concerns since last ROS Need for restraint or seclusion is: No longer present Attending notified: Attending completed assessment
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
[2023-04-22] MEDS: nicotine 2 mg Gum BUCCAL (14:52)
--- NOTE | 2023-04-22 15:04 | PC.NURSE ---
THIS PT BEGAN BECOMING ESCALATED. PT STATED IF I DO NOT GET TO CALL MY DIP GUIDER STOVES THEN A ELECT[employer]IC[employer]ANS TOP HELPER IS GOING TO PLACE WHOEVER PUT ME HERE IN FEDERAL RETIREMENT. PT WAS EDUCATED THAT PT CAN UTILIZE THE PT PHONE FOR PHONE CALL PURPOSES. PT WAS EDUCATED THAT IT IS A POLICY THAT PT CANNOT MAKE PHONE CALL ON PERSONAL PHONE. PT BECAME AGITATED AND REPEATED THE PRIOR STATEMENT. PT THEN MOVED AWAY FROM THE DESK MUMBLING UNDER HIS BREATH. PT THE BEGAN EXPLAINING TO ANOTHER PT STATING I KNOW HOW TO GET OUT OF THESE TYPES OF DOORS, I KNOW HOW TO MAKE THIS GIVE OUT. THIS NURSE RESPONDED TO PT STATEMENT WITH IM GOING TO NEED YOU TO PLEASE LEAVE MY DOOR ALONE. PT STATED I NEED TO GET OUT OF HERE, I CAME HERE MYSELF. PT WAS THEN EDUCATED THAT HE IS ON A 96 HOUR HOLD, THIS NURSE ATTEMPTED TO EDUCATE PT HOWEVER, PT INTERRUPTED THIS NURSE STATING THEN YOU CALL THE PERSON WHO IS LEGALLY IN CHARGE OF THIS PLACE AND HAS TO LEGALLY BE HERE TO GET DOWN HERE SO I CAN GET OUT OF HERE. THIS NURSE OFFERED TO CALL NEWCOMER HOSTESS BUT STATED THAT THE PT WOULD NEED TO LEAVE THE DOOR ALONE IN ORDER TO MAKE THIS CALL. PT BECAME INCREASINGLY MORE AGITATED STATING GET ME THE PERSON WHO CAN LET ME OUT OR I WILL BUST THIS DOOR OPEN. THIS RN RESPONDED STATING I AM GOING TO NEED YOU TO GET AWAY FROM THE DOOR, AND I CANNOT LET YOU OUT WITHOUT THE DOCTORS PLACING ORDERS TO DO SO. PT BEGAN YELLING AT THIS NURSE STATING IF YOU DON'T GET SOMEONE DOWN HERE TO LET ME OUT THEN I WILL BUST DOWN THAT DOOR AND THE NEXT DOOR TO GO TO ADMINISTRATION AND SLAP THEM. THIS NURSE ASKED ADY BELLAMY RN TO CALL SECURITY AND NEWCOMER HOSTESS. BETHANY ADAMS, NEWCOMER HOSTESS, CAME AND BEGAN SPEAKING WITH THE PT. SHE INFORMED THE PT HOW HE SHOULD NOT BREAK THE DOOR DOWN OR ATTEMPT TO DESTROY ANY PROPERTY THAT WILL BE A DESTRUCTION OF PROPERTY CHARGE. PT BECAME HIGHLY IRRITATED WITH THIS STATEMENT AND BEGAN SAYING THAT HE WAS BEING HELD AGAINST HIS WILL AND THAT HE WAS NEVER IN FRONT OF A BUSINESS OBJECTS. NEWCOMER HOSTESS THEN EXPLAINED THAT FOR A 96 HOUR HOLD WE DID NOT HAVE TO SEND HIM TO COURT IN ORDER TO PLACE ONE. DURING THIS TIME THIS NURSE CONTACTED PHYSICIAN INFORMING HIM OF PT BEHAVIOR AND THREATS. PHYSICIAN STATED THAT IF HE CONTINUES TO ESCALATE THAT HE WILL NEED TO RECEIVE INJECTIONS. PT STATED THAT IF ANYBODY LAID A HAND ON HIM THEY WOULD SEE HIS TRAINING. PT STATED THAT IF WE TRIED TO GIVE HIM INJECTIONS THAT HE WOULD TAKE THE NEEDLE AND STAB IT INTO THAT PERSONS EYE. AFTER MEDICATION WAS DRAWN UP A CODE 10 WAS CALLED TO GIVE NURSING STAFF MORE HANDS. ONCE PT SEEN PEOPLE COME IN PT STOOD UP AND STATED OKAY WELL I GUESS IM GOING LETHAL ONE OF THE MALE NURSES THAT CAME DOWN APPROACHED HIM AND STATED THAT WE HAVE MEDICATIONS THAT WE WERE GOING TO GIVE HIM. PT STATED THAT HE WAS NOT GOING TO TAKE ANYTHING. PT AGREED TO GO INTO HIS ROOM AND SPEAK WITH MALE NURSES. PT DID HAVE TO BE PLACED INTO A HOLD AND BEFORE WE GIVE THE INJECTIONS THE PT YELLS THAT HE IS ALLERGIC TO HALDOL. THIS WAS NOT PLACED IN THE CHART AN ALLERGY. PT WAS INITIALLY WORRIED ABOUT THORAZINE, WHICH IS IN HIS ALLERGY LIST, THIS NURSE STATED THORAZINE WAS NOT IN THE INJECTIONS. THE PHYSICIAN SHOWED UP AND ASKED WHAT THE REACTION TO HALDOL WAS AND PT SHOWED HIS LEG WHICH WAS DISCOLORED. PT WAS ASKED ABOUT GEODON AND STATED THAT THAT HAS NEVER BEEN TRIED, PHYSICIAN ORDERED GEODON. PT CONTINUED TO SPEAK WITH PHYSICIAN AND WAS RELEASED FROM MANUAL HOLD. PHYSICIAN DECIDED THAT WAS NO LONGER A CURRENT NEED FOR AN INJECTION AND EXPLAINED TO THE PT WHAT WOULD BE CAUSE FOR A INJECTION TO BE GIVEN, AND EXPLAINED THAT THIS IS HIS CHANCE TO PROVE THAT HE CAN MANAGE HIS ANGER. PT VERBALIZED UNDERSTANDING.
[2023-04-22 17:27] LABS: Glucose Point of Care 313 mg/dL (70-110)
[2023-04-22] MEDS: ziprasidone 20 mg/mL SDV IM (17:33)
[2023-04-22] MEDS: water for injection-sterile 10 ML (17:33)
[2023-04-22 17:48] LABS: Amphetamines Screen Urine Negative (Negative); Barbiturates Screen Urine Negative (Negative); Benzodiazepines Screen Urine Positive (Negative); Cocaine Screen Urine Negative (Negative); Opiate Screen Urine Positive (Negative); PCP Screen Urine Negative (Negative); THC Screen Urine Negative (Negative)
--- NOTE | 2023-04-22 18:17 | PC.NURSE ---
PT BECAME AGITATED WITH STAFF WHEN PT WAS ASKED TO LEAVE HIS DOOR CRACKED. PT STATED I AGREED TO STAY HERE FOR MY 96 HOURS, BUT I WILL HAVE MY PRIVACY. PT WAS EDUCATED THAT HE IS MORE THAN WELCOME TO HAVE THE DOOR CRACKED A SMALL AMOUNT, BUT CANNOT FOR SAFETY REASON HAVE HIS DOOR CLOSED ALL THE WAY. PT STATED I BLED FOR ALL THE PEOPLE WHO WORK HERE AND I WILL HAVE MY PRIVACY. THIS NURSE REEDUCATED PT AND REOPENED DOOR. DURING ROUNDING FUENTES MORALES CAME TO THE NURSES STATION STATING TIMUR I NEED YOU TO COME WITH ME WITH GLOVES AND ALCOHOL WIPES. WHEN ASKED WHAT WAS GOING ON FUENTES STATED HE HAS RIPPED OFF HIS TOE NAIL. THIS NURSE GRABBED GLOVES, GAUZE, AND ALCOHOL WIPES AND IMMEDIATELY WENT INTO THE PT ROOM. UPON ENTERING PT ROOM PT WAS HOLDING TOENAIL AND USING SOCK TO SEEP UP THE BLOOD. ONCE THE PT SEEN THIS NURSE PT STATED DONT TOUCH ME. THIS NURSE OFFERED TO ASSIST TO CLEAN UP AND BANDAGE HIS TOE. PT REFUSED TO LET THIS NURSE DO SO. THIS NURSE THEN OFFERED ALCOHOL WIPES TO DISINFECT THE AREA, PT TOOK THEM AND CLEANSE THE AREA HIMSELF. PT WAS OFFERED GAUZE TO HOLD PRESSURE TO HIS TOE AND DID ACCEPT THIS. PT WILLINGLY GAVE BY THE USED SUPPLIES TO BE DISPOSED OF BUT WAS UNWILLING TO GIVE THIS NURSE HIS TOENAIL. PT STATED THIS IS A PART OF MY BODY AND I DO NOT HAVE TO GIVE IT TO YOU, I WILL KEEP IT. THIS NURSE INQUIRED THE REASON WHY PT WAS UNWILLING TO GIVE US HIS TOENAIL. PT STATED YOU WOULDN'T UNDERSTAND I CAN USE THIS A TOOL TO GET OUT AFTER IT DRIES. THIS NURSE STATED THAT IF HE TRULY WANTED TO KEEP HIS TOE NAIL FOR HIS PERSONAL PREFERENCE WE CAN PLACE IT IN A BIOHAZARD BAG AND PLACE IT WITH HIS BELONGINGS, HOWEVER, WE WILL NOT BE ABLE TO LET HIM KEEP HIS TOENAIL ON HIM. PT STATED YOU WONT BE ABLE TO GET IT FROM ME AND IF SOMEONE LAYS THEIR HANDS ON MY I WILL FIGHT BACK. THIS NURSE EDUCATED THE PT THAT BECAUSE HE HAS PLANS TO ATTEMPT TO ESCAPE I WILL NOT BE ABLE TO ALLOW HIM TO KEEP IT. PT WAS INFORMED THAT WE WOULD HAVE TO RETRIEVE IT SOME HOW, AND THAT SECURITY MAY HAVE TO BE INVOLVED IF IT ESCALATED TO PHYSICAL VIOLENCE. PT STATED OH YEAH, *POPPED HIS TOE NAIL IN HIS MOUTH*, WELL THEY CANT FORCE MY MOUTH OPEN. THIS NURSE ATTEMPTED REEDUCATION AGAIN HOWEVER, PT WAS RESISTANT TO LEARNING. THIS NURSE OFFERED TO CALL THE PHYSICIAN WHILE STILL IN PT ROOM AND EXPLAIN THE SITUATION TO GIVE PT AN OPPORTUNITY TO EXPLAIN HIMSELF AGAIN. PT AGREED AND PHYSICIAN WAS CONTACTED WITHIN THE PT ROOM. PT EXPLAINED THIS TO THE PHYSICIAN, THE PHYSICIAN STATED THAT IF THIS BEHAVIOR CONTINUES TO GIVE HIM AND INJECTION IF HE KEPT REFUSING TO GIVE BACK THE TOENAIL. AT THIS POINT FUENTES HAD CONTACTED REEL WINDER AND SECURITY. AFTER THE PHONE CALL WITH THE PHYSICIAN THE PT STATED IF SOMEONE TRIES TO GIVE ME AN INJECTION I WILL FIGHT THEM TO THE . REEL WINDER EXPLAINED HOW THIS IS NOT HELPING HIS SITUATION. REEL WINDER EXPLAINED THAT WE ARE HERE TO PROTECT EVERYONE IN THE UNIT AND THAT IF REQUIRED WE WILL HAVE TO GIVE THE INJECTION IF THE TOENAIL WAS NOT HANDED OVER. PT THE YELLED NO THE ONLY REASON I RIPPED IT OFF WAS TO USE IT TO GET OUT OF HERE. REEL WINDER EXPLAINED THAT HIS SELF HARM AND VERBAL THREATS ARE THE REASON HE IS IN THE SITUATION AND THAT IF HE WOULD COOPERATE WE WOULD NOT HAVE TO GIVE HIM AND INJECTION. PT RELUCTANTLY SPIT HIS TOENAIL OUT OF HIS MOUTH AND PLACED IT IN THIS NURSES HAND. THE NURSE WAS LEAVING PT STATED DO YOU WANT ME TO GIVE YOU ALL THE OTHER METAL I HAVE ACCESS TO? WHEN ASKED WHAT HE WAS TALKING ABOUT. PT STATED WELL HAVE THIS BAR IN MY ARM AND ON THE PINS IN MY BODY. NURSE STATED WE WILL NOT BE TAKING YOUR IMPLANTS OUT OF YOUR BODY. PROMISED WE THEN LEFT THE PT ROOM AND PLACED IN HIS TOENAIL IN A BIOHAZARD BAG AND PLACED IT IN HIS BELONGINGS. FUENTES THEN WENT TO DO ANOTHER ROUNDING IMMEDIATELY CAME BACK INTO THE NURSES STATION STATING HE IS RIPPING OFF ANOTHER TOENAIL REEL WINDER CALLED A CODE 10 TO GET HELP TO THE FLOOR. PT WAS REEDUCATED THAT WE WERE GOING TO HAVE TO NOW GIVE HIM A SHOT SINCE HE IS CONTINUE TO SELF HARM. PT STATED NOBODY WILL LAY A HAND ON ME, I WILL FUCKING FIGHT THEM. PT DID REQUIRE A MANUAL HOLD TO PERFORM GEODON INJECTION. AFTER GEODON INJECTION WAS GIVEN PT WAS IMMEDIATELY RELEASED FROM MANUAL HOLD. PT THEN CONTINUED TO MAKE VERBAL THREATS. PT STATED IM GOING TO RIP THIS MAEGAN OUT OF MY ARM WHEN THIS RN ASKED HIM TO STOP AND EXPLAINED THAT WE CANNOT ALLOW HIM TO HURT HIMSELF PT THEN STATED ILL DO IT, ILL JUST RIP OUT THE ARTERY. NOBODY WILL GIVE ME AN INJECTION AGAIN. PT WAS EDUCATED THAT OUR JOB TO TO KEEP HIMSELF FROM HIMSELF AND OTHERS WHILE HE IS HERE, PT WAS INFORMED THAT WE WILL HAVE TO TALK WITH THE DOCTOR ABOUT A SITTER IF HE KEPT TALKING ABOUT/ATTEMPTING TO HARM HIMSELF. PT THEN STATED I DONT GIVE A FUCK, I WILL FIND MY WAY OUT OF HERE. IF I DONT GET OUT I WILL KILL MYSELF. PT ALSO STATED AT SOME POINT I WILL BE IN FRONT OF A GAME MODERATOR AND MY STEEL ANALYST WILL BE THERE AND THEY WILL OBLITERATE THE DOCTOR. PT WAS EXPLAINED THAT THE COURT WILL HAVE ALL THE INFORMATION THAT HAS WENT ON TODAY IF REQUESTED DURING THAT TRIAL. PT THEN STATED I DONT CARE, ILL TELL THAT GAME MODERATOR THAT HE IS A [employer]IOT. PT WAS EXPLAINED THAT NONE OF THIS WOULD HELP HIM GET RELEASED ANY EARLIER. AT THIS POINT PT WAS BECOMING CALMER AND STATED WELL YOU GUYS CANT HELP ME. PT WAS EXPLAINED THAT WE ARE HERE TO HELP AND THAT IS AN AMAZING DOCTOR. PT WAS CALM AND WILLING TO NOT HARM HIMSELF AT THIS POINT. PHYSICIAN DID ORDER A SITTER FOR THE MOMENT AND THIS WAS PLACED.
--- NOTE | 2023-04-22 18:20 | PC.NURSE ---
1HOUR FACE TO FACE DONE AT 1738: PT ASSISTED BACK TO BED AFTER GETTING SOMETHING TO DRINK. PT DOES APPEAR CALMER AND IS CURRENTLY RESTING WITH HIS EYES CLOSED. BREATHING NOTED.
[2023-04-22 21:18] LABS: Glucose Point of Care 300 mg/dL (70-110)
[2023-04-22 21:42] VITALS: BP 131/75; PULSE 105; RESP 18; TEMP 36.5; O2SAT 92
--- NOTE | 2023-04-22 21:56 | PHA.FALL ---
A Pharmacy Consult Was Conducted For Robby Ramirez Due To: [place] Fall Scale Risk Level: High Fall Risk On 04/22/23 20:00 And A Medication Fall Risk Score Greater Than 10. The Recommendations Are As Follows: The [place] [employer] has compiled a referenced resource for High-Risk Medications Attributed to Falls in Older Adults. List available upon request or at [email or web address] Medications which cause/contribute to: 1 = sedation/fatigue/lethargy 2 = decreased alertness 3 = postural/orthostatic hypotension 4 = dizziness 5 = decreased neuromuscular function/ataxia 6 = decreased memory/cognitive impairment 7 = blurred vision 8 = confusion 9 = arrhythmias 10 = syncope 11 = anemia Active on profile: hydroxyzine, diphehydramine - Any medication with strong anticholinergic effects Haloperidol- CORBY: 1,3,4,5,7,8,10 Lorazepam -CORBY: 1,3,4,5,6,8,10 Olanzapine- CORBY: 2,3,4,5,7,8 Tramadol : Neurologic: Dizziness (7% to 33% ), Somnolence (4% to 25% ) Insulin- Increased risk of hypoglycemic event
[2023-04-22 22:00] VITALS: BP 131/75; PULSE 105; RESP 18; TEMP 36.5; O2SAT 92
[2023-04-23 06:00] VITALS: BP 151/93; PULSE 95; RESP 18; TEMP 36.4; O2SAT 93
[2023-04-23 08:00] LABS: Glucose Point of Care 320 mg/dL (70-110)
[2023-04-23] MEDS: insulin lispro 100 unit/1 mL SUBCUT ×4 (08:43→21:10)
[2023-04-23 09:49] LABS: Glucose Point of Care 401 mg/dL (70-110)
--- NOTE | 2023-04-23 09:56 | ECG_ITS ---
[facility] Test Date: 2023-04-23 Pat Name: Robby Ramirez Department: Room: 153 Gender: Male Creative Consultant: : 1975 Requested By: Errol Ramon Order Number: [id number] Emily MD: Vamshi Duckworth M.D. Measurements Intervals [place] Rate: 93 P: 45 CO: 201 QRS: 5 QRSD: 108 T: 18 QT: 358 QTc: 445 Interpretive Statements SINUS RHYTHM Compared to ECG 04/21/2023 20:37:46 Myocardial infarct finding no longer present Electronically Signed On 04-23-2023 15:45:36 CDT by Vamshi Duckworth M.D. [id number]
--- NOTE | 2023-04-23 10:13 | PC.NURSE ---
Patient was at nurses' station with sitter, talking to staff. Patient stood up from wheelchair, leaning against ledge. Patient then returned to chair after a few minutes. Patient's face was pale and sweaty. Patient clutching his left arm to his chest, staring into space. After being asked if he was okay, patient stated no, that he was having chest pain. patient was rushed to his room, vitals taken, blood glucose taken. BP was 160/95, 02 saturation was 96%. heart rate 93bpm. This nurse asked if he has ever experienced this pain before, he stated he has and when he did, he had a heart attack. This nurse contacted DR. Smith who told me to call a Rapid Response. EKG performed, Dr. Lozano assessed patient. EKG reading was normal sinus. Blood drawn. Patient resting in bed at this time. patient still with sitter.
[2023-04-23 10:26] LABS: Basophils # 0.1 10^3/uL (0.0-0.1); Eosinophils # 0.1 10^3/uL (0.0-0.8); Eosinophils % 2.4 %; Hemoglobin 13.5 g/dL (11.7-16.6); Lymphocytes # 2.2 10^3/uL (0.8-4.8); Lymphocytes % 42.7 %; Mean Corpuscular HGB Conc 31.4 g/dL (30.0-36.0); Mean Corpuscular Hemoglobin 28.7 pg (28.0-34.0); Mean Corpuscular Volume 91.3 fl (80-94); Mean Platelet Volume 9.4 fL (7.4-10.4); Monocytes # 0.4 10^3/uL (0.2-0.9); Monocytes % 7.6 %; Neutrophils # 2.36 10^3/uL (1.8-7.7); Neutrophils % 46.3 %; Nucleated Red Blood Cells % 0 %; Platelet Count 155 10^3/cmm (130-400); Red Blood Count 4.71 10^6/uL (4.1-5.3); Red Cell Distribution Width 13.1 % (12.1-15.1); White Blood Count 5.1 10^3/uL (4.0-10.0)
--- NOTE | 2023-04-23 10:33 | P.NPUPN_ITS ---
Subjective NPU Subjective: Patient presented today continuing to have somatic complaints. A rapid response was called this morning in relation to his reports of chest pain. He continues to report that he was on 18 mg daily of Xanax and morphine pump. We reviewed that consult with his pharmacy in the morning. A hospitalist consult was obtained secondary to the follow-up of his cardiac work-up. He had episode last night where he was carrying his toenails off and a one-to-one was initiated this morning after our conversation he was taken off of the one-to-one. Mental Status Exam MSE Comments: This is an obese white male, in hospital scrubs, with limited grooming and eye contact. 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 No abnormal movements, except for significant psychomotor retardation. Cooperative with exam in mild distress. Speech was slightly decreased rate and mostly normal volume with possible slurring. Mood described as okay; affect subdued. Thought process, organized. Thought content: patient denied any suicidal or homicidal ideation, there were no delusions reported the question of grandiose and paranoid delusions noted, patient denied any auditory or visual hallucinations. Attention and concentration were mostly intact, and memory appeared unreliable, but none were formally tested. Alert and oriented times three. Insight and judgment are limited. Impulse control is limited. Vitals/I&O/Wt Last Vital Signs Temp 97.5 F L 04/23/23 06:00 Pulse 95 04/23/23 06:00 Resp 18 04/23/23 06:00 BP 151/93 04/23/23 06:00 Pulse Ox 93 04/23/23 06:00 O2 Del Method Room Air 04/23/23 06:00 Weight last 48 hrs Weight 122.47 kg Weight 122.47 kg Data NPU 04/23/23 10:16 04/23/23 10:16 A&P Assessment and plan (1) Chest pain: Qualifiers: Chest pain type: unspecified Qualified Code(s): R07.9 - Chest pain, unspecified (2) Pre-syncope: (3) Type 2 diabetes mellitus: (4) Obstructive sleep apnea: (5) Asthma exacerbation: (6) COPD (chronic obstructive pulmonary disease): Qualifiers: COPD type: chronic bronchitis Chronic bronchitis type: simple Qualified Code(s): J41.0 - Simple chronic bronchitis (7) CHF (congestive heart failure), NYHA class III: Qualifiers: Congestive heart failure type: unspecified Qualified Code(s): I50.9 - Heart failure, unspecified (8) Hyperlipidemia: (9) Chronic pain syndrome: (10) Hyperglycemia: (11) Cluster B personality disorder in adult: (12) PTSD (post-traumatic stress disorder): Plan This is a 47 -year-old, white male, with a reported history of PTSD and significant anxiety presenting on 18 mg a day of Xanax without significant other medications for mental health challenges and having been unwilling to do the UDS with a very fantastical history with significant concerns for development, possible addiction, and likely personality disorder. 1. Continue current medication. 2. Encourage individual, group, and milieu therapy. 3. Continue q-15-minute checks for safety. 4. Contact with pharmacy in the morning for details of pain management and Xanax prescription. 5. Await response of hospitalist consult and follow recommendations as indicated. Involuntary Hold Information 96 Hour Hold: 96 Hour Involuntary Admission: Yes 96 Hour Hold Ending Date: 04/27/23 96 Hour Hold Ending Time: 05:17 Attestations NPU Medical Necessity Statement*: Inpatient hospitalization is medically necessary and the clinically appropriate intervention, at this time. We will monitor medications and make changes as indicated. Likely length of stay is 2-4 days. Coding Level of Care Code Acute Code for [facility] Diagnoses Chest pain R07.9 Chest pain type: unspecified Pre-syncope R55 Type 2 diabetes mellitus E11.9 Obstructive sleep apnea G47.33 Asthma exacerbation J45.901 COPD (chronic obstructive pulmonary disease) J41.0 COPD type: chronic bronchitis Chronic bronchitis type: simple CHF (congestive heart failure), NYHA class III I50.9 Congestive heart failure type: unspecified Hyperlipidemia E78.5 Chronic pain syndrome G89.4 Hyperglycemia R73.9 Cluster B personality disorder in adult F60.9 PTSD (post-traumatic stress disorder) F43.10
[2023-04-23 10:48] LABS: Troponin(5th) Baseline 6 ng/L (0-15)
[2023-04-23 10:51] LABS: Alanine Aminotransferase 22 U/L (0-41); Albumin Level 3.6 g/dL (3.5-5.2); Alkaline Phosphatase 96 U/L (40-130); Aspartate Amino Transferase 18 U/L (0-40); Blood Urea Nitrogen 13 mg/dL (6-20); Calcium 9.2 mg/dL (8.5-10.5); Carbon Dioxide 22 mmol/L (22-29); Chloride 95 mmol/L (98-107); Globulin 3.1 g/dL (1.3-4.6); Glomerular Filtration Rate 120.4 mL/min (90-130); Glucose 378 mg/dL (65-115); Osmolality Calculated 290 mOsm/kg (285-295); Sodium 132 mmol/L (136-145); Total Bilirubin 0.4 mg/dL (0.15-1.2); Total Protein 6.7 g/dL (6.6-8.7)
--- NOTE | 2023-04-23 11:15 | CTR_ITS ---
PROCEDURE INFORMATION: Exam: CT Head Without Contrast Exam date and time: 04/23/2023 11:40 AM Age: 47 years old Clinical indication: Dizziness and syncope and collapse; Additional info: Pre-syncope, HX syncope TECHNIQUE: Imaging protocol: Computed tomography of the head without contrast. Radiation optimization: All CT scans at this facility use at least one of these dose optimization techniques: automated exposure control; mA and/or kV adjustment per patient size (includes targeted exams where dose is matched to clinical indication); or iterative reconstruction. REPORTING DATA: Count of CT and Cardiac NM exams in prior 12 months: This patient has received 0 known CTs and 0 known cardiac nuclear medicine studies in the 12 months prior to the current study. COMPARISON: CT head wo con* [id number] 03/08/2019 1:16 AM RADIATION DOSE METRICS: Total DLP (mGy-cm): 1105 FINDINGS: Brain: Normal. No hemorrhage. Unremarkable white matter. No mass effect. Ventricles: No hydrocephalus or evidence of increased intracranial pressure. Paranasal sinuses: Visualized sinuses are unremarkable. No fluid levels. Mastoid air cells: Visualized mastoid air cells are well aerated. Bones/joints: No acute abnormality. No acute fracture. Soft tissues: Unremarkable. CT/CT head wo con* [id number] IMPRESSION: No acute intracranial abnormality identified.
--- NOTE | 2023-04-23 11:15 | CTR_ITS ---
PROCEDURE INFORMATION: Exam: CT Abdomen Without Contrast Exam date and time: 04/23/2023 11:42 AM Age: 47 years old Clinical indication: Abdominal tenderness; Prior surgery; Surgery date: 6+ months; Surgery type: Ivc filter; Additional info: Assess ivc filter position TECHNIQUE: Imaging protocol: Computed tomography of the abdomen without contrast. Radiation optimization: All CT scans at this facility use at least one of these dose optimization techniques: automated exposure control; mA and/or kV adjustment per patient size (includes targeted exams where dose is matched to clinical indication); or iterative reconstruction. REPORTING DATA: Count of CT and Cardiac NM exams in prior 12 months: This patient has received 0 known CTs and 0 known cardiac nuclear medicine studies in the 12 months prior to the current study. COMPARISON: CT kidney stone [id number] 08/31/2018 6:04 PM RADIATION DOSE METRICS: Total DLP (mGy-cm): 1124.53 FINDINGS: Liver: There is fatty change involving the liver parenchyma. Gallbladder and bile ducts: Prior cholecystectomy. No biliary ductal dilatation allowing for that. Pancreas: No peripancreatic inflammation. No pancreatic ductal dilation. Spleen: The spleen is prominent in size but homogeneous. Adrenal glands: No right adrenal mass. There is a 10 mm fat attenuation left adrenal nodule, likely a myelolipoma. Kidneys and ureters: No hydronephrosis or nephrolithiasis. Stomach and bowel: No bowel obstruction or diverticulitis. Intraperitoneal space: No ascites or pneumoperitoneum. Vasculature: No abdominal aortic aneurysm. There is an infrarenal inferior vena caval filter, located just superior to the confluence of the common iliac veins. The infrarenal inferior vena cava is small in caliber and contains central calcification compatible with chronic thrombosis. The calcification extends up from the right external and common iliac veins which are small in caliber and felt to be chronically thrombosed as well. Multiple subcutaneous venous collaterals. Lymph nodes: No pathologically enlarged lymph nodes. Urinary bladder: The visualized portion of the urinary bladder is distended. Bones/joints: No acute osseous abnormality. Soft tissues: No acute soft tissue abnormality. CT/CT abdomen wo con [id number] IMPRESSION: 1. Infrarenal inferior vena caval filter, located just superior to the confluence of the common iliac veins. 2. 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 COMMENTS: For patients with an IVC filter, recommend assessment for a management plan for the patient's IVC filter. If there is no established management plan, recommend referral to an interventional clinician on a nonemergent basis for evaluation.
--- NOTE | 2023-04-23 11:16 | CTR_ITS ---
PROCEDURE INFORMATION: Exam: CTA Chest With Contrast Exam date and time: 04/23/2023 12:07 PM Age: 47 years old Clinical indication: Dyspnea; Additional info: Assess for pe TECHNIQUE: Imaging protocol: Computed tomographic angiography of the chest with contrast. Exam focused on the arteries. 3D rendering (Not supervised by radiologist): MIP and/or 3D reconstructed images were created by the technologist. Radiation optimization: All CT scans at this facility use at least one of these dose optimization techniques: automated exposure control; mA and/or kV adjustment per patient size (includes targeted exams where dose is matched to clinical indication); or iterative reconstruction. Contrast material: OMNI 350; Contrast volume: 100 ml; Contrast route: INTRAVENOUS (IV); REPORTING DATA: Count of CT and Cardiac NM exams in prior 12 months: This patient has received 0 known CTs and 0 known cardiac nuclear medicine studies in the 12 months prior to the current study. COMPARISON: CT angio chest PE protcl [id number] 05/18/2020 1:57 PM RADIATION DOSE METRICS: Total DLP (mGy-cm): 1073.83 FINDINGS: Limitations: Suboptimal opacification of distal pulmonary arterial branches. Pulmonary arteries: No sign of acute central pulmonary embolism. No conclusive evidence for peripheral pulmonary arterial branch embolism when allowing for technical limitations. Aorta: No thoracic aortic aneurysm or dissection when allowing for pulsation artifact. Veins: Multiple subcutaneous venous collaterals. Lungs: Prior pulmonary granulomatous disease. Bilateral central perihilar pulmonary ground-glass opacities which may be due to pulmonary edema. Pleural spaces: No pleural effusion or pneumothorax. Plaque-like noncalcified pleural thickening on the left posterolaterally. Heart: The heart is not enlarged. No pericardial effusion. Coronary arteries: No calcified coronary artery atherosclerotic plaque visualized. Lymph nodes: There are calcified right hilar and azygoesophageal recess lymph nodes from prior granulomatous disease. Bones/joints: No acute osseous abnormality. Soft tissues: No acute soft tissue abnormality. CT/CT angio chest PE protcl [id number] IMPRESSION: 1. Technically limited exam. No conclusive evidence for acute pulmonary embolism. 2. Findings which could be due to bilateral perihilar pulmonary edema.
--- NOTE | 2023-04-23 11:27 | PM.CONSULT ---
Providers/Reason For Consult Consulting Physician/Specialty*: Dr. Smith/psychiatry Reason for Consult*: Chest pain Attending Physician: Eliseo Smith MD Primary Care Provider: NATACHA Nicholas History of Present Illness History of Present Illness 47-year-old gentleman being evaluated on neuropsychiatric unit after expressing concerns of intended harm to self and/or others, was assessed after rep response due to episode of chest heaviness, he states that he felt prompted by someone about having to use a wheelchair due due to right-sided AKA, and felt that he would food that he can stand up, he grabbed onto the nursing station counter and stood up rapidly, then when he sat down he experienced pain in his stump which quickly went upward and states that shortly after started feeling somewhat lightheaded with elephant sitting on his chest. Reports having prior history of longstanding pain in his stump, he states that he was making arrangements to see surgery team in [facility] to have the stump possibly revised, he states that he follows with the Physician at [facility] who gives him a what sounds like a morphine pump pain control, but does not remember the name of the physician at this time. States that he has been dealing with this for a while and then ruptured amputation he has had recurrent pain, especially when he puts on socket onto the stump, stating that the tissues are pushing onto his femur causing him pain and that he needs surgery. He states that it chemosurgery was ready and waiting to take him into surgery to correct the issue, and he did not intend to end up here. He does state that he has history of MS in the past, states that he was diagnosed and treated for it in [place]. He states that he does not have any stents, MS was treated medically. He has history of DVT in the past, also has an IVC filter which he states has been displaced from its original location. He used to be on Arixtra for a long time, but states that that medication was discontinued due to concern that it was irritating his blood vessels. He has Eliquis listed on his home medications although unconfirmed, discussing the does not remember ever taking Eliquis. He states he is sensitive to warfarin. He states he is not allergic to heparin but that it is a pain to get stuck with it all the time. He is currently feeling better, still having minimal pressure in the chest. At the time of the episode he was assessed with stable vital signs, BP 160/95, saturation 96%, heart rate 93. EKG, CBC, CMP, troponin were obtained. EKG with sinus rhythm in the low 90s. CBC unremarkable. CMP with sodium 132, glucose 378. UDS from admission noted positive for opiates, benzodiazepines. Review of Systems Const: Denies: fever(s), chills, body aches or malaise Eyes: Denies: change in vision, eye discomfort or eye redness ENMT: Denies: throat pain, oral sores or ear or mastoid pain Card: Reports: chest pain and pre-syncope; Denies: edema or dyspnea on exertion Resp: Denies: dyspnea, productive cough, change in phlegm color or hemoptysis GI: Denies: abdominal pain, nausea, vomiting, diarrhea, constipation, hematochezia or melena : Denies: flank pain, difficulty urinating, urinary frequency or hematuria Musc: Reports: extremity pain (R stump); Denies: back pain, joint swelling or joint redness Skin/Breast: Denies: rash or new lesions Neuro: Denies: headache(s), numbness in extremities, weakness in extremities, confusion or seizure-like activity Endo: Denies: polyuria or polydipsia Jared/Lymph: Denies: easy bleeding or tender lymph nodes All/Imm: Denies: urticaria or tongue swelling Medications/Allergies Home Medications Medication Instructions Recorded Confirmed Last Taken Type albuterol sulfate 90 mcg/actuation 2 puff inhalation Q6H PRN 12/01/20 12/07/20 Unknown Rx aerosol inhaler (ProAir HFA) shortness of breath or wheezing #6.7 grams fluticasone 100 mcg-salmeterol 50 1 inh inhalation BID #1 ea 12/01/20 12/07/20 Unknown Rx mcg/dose blistr powdr for inhalation (Advair Diskus) atorvastatin 10 mg tablet 10 mg PO DAILY #90 tabs 12/07/20 12/07/20 Unknown Rx blood sugar diagnostic (Accu-Chek #100 ea 12/07/20 12/07/20 Unknown Rx Breanna Plus test strips) blood-glucose meter (Accu-Chek #1 ea 12/07/20 12/07/20 Unknown Rx Breanna Plus Meter) empagliflozin 10 mg tablet 10 mg PO DAILY #90 tabs 12/07/20 12/07/20 Unknown Rx (Jardiance) insulin detemir U-100 100 unit/mL 30 unit (0.3 mL) SUBCUT BID 90 12/07/20 12/07/20 Unknown Rx (3 mL) subcutaneous pen (Levemir days #54 mL FlexTouch U-100 Insulin) lancets (Accu-Chek Multiclix #100 ea 12/07/20 12/07/20 Unknown Rx Lancet) pen needle, diabetic 31 gauge x #100 ea 12/07/20 12/07/20 Unknown Rx 1/4 (Comfort EZ Pen [place]) miscellaneous medical supply 1 ea miscellaneous DAILY 30 days 12/08/20 Unknown Rx #1 ea ondansetron 4 mg disintegrating 4 mg PO Q6H PRN nausea and 04/20/21 Unknown Rx tablet vomiting #14 tabs apixaban 5 mg (74 tabs) tablets in See Rx Instructions PO .COMPLEX 12/14/22 Unknown Rx a dose pack (Eliquis DVT-PE Treat #74 ea 30D Start) Allergies Allergy/AdvReac Type Severity Reaction Status Date / Time chlorpromazine Allergy Unknown Unknown Verified 12/07/20 12:35 [From Thorazine] heparin Allergy Unknown Unknown Verified 12/07/20 12:35 olanzapine [From Zyprexa] Allergy Unknown Unknown Verified 12/07/20 12:35 phenytoin [From Dilantin] Allergy Unknown Unknown Verified 12/07/20 12:35 Sulfa (Sulfonamide Allergy Unknown Unknown Verified 12/07/20 12:35 Antibiotics) warfarin [From Coumadin] Allergy Unknown Unknown Verified 12/07/20 12:35 Current Medications Generic Name Dose Route Start Last Admin Trade Name Freq PRN Reason Stop Dose Admin Insulin Human Lispro 0 unit 04/22/23 08:00 04/23/23 08:43 Insulin Lispro 100 Unit/1 Ml SUBCUT 12 unit WM&BEDTIME ARNULFO Administration Protocol Nicotine Polacrilex 2 mg 04/22/23 06:01 04/22/23 14:52 Nicotine 2 Mg Gum BUCCAL 2 mg Q2H PRN Administration NICOTINE WITHDRAWAL PFSH Acute PFSH: Medical History (Updated 04/23/23 @ 11:41 by Kamron Robertson MD) CHF (congestive heart failure), NYHA class III Chronic pain syndrome COPD (chronic obstructive pulmonary disease) History of coronary artery disease HTN (hypertension) Hx of deep venous thrombosis Hx pulmonary embolism Hyperlipidemia IBS (irritable bowel syndrome) Male circumcision Morbid obesity Myocardial infarct, old Obstructive sleep apnea Paraplegia PTSD (post-traumatic stress disorder) Traumatic brain injury Type 2 diabetes mellitus Surgical History History of back surgery S/P appendectomy S/P cholecystectomy S/P IVC filter S/P sinus surgery Social History Smoking and tobacco status: never smoked Alcohol intake: current Alcohol intake frequency: holidays/special occasions only Substance/Drug Use: never Current occupational status: disabled Current gender identity: Male Vitals/I&O/Wt Last Vital Signs Temp 97.5 F L 04/23/23 06:00 Pulse 95 04/23/23 06:00 Resp 18 04/23/23 06:00 BP 151/93 04/23/23 06:00 Pulse Ox 93 04/23/23 06:00 O2 Del Method Room Air 04/23/23 06:00 Weight last 48 hrs Weight 122.47 kg Weight 122.47 kg Physical Exam Narrative: Reclined in bed Const: COMMON NORMALS: patient oriented x3 and alert GENERAL APPEARANCE: cooperative NUTRITIONAL APPEARANCE: obese ORIENTATION/CONSCIOUSNESS: Yes awake HENMT: COMMON NORMALS: oropharynx normal Neck/C-Spine: COMMON NORMALS: no JVD Resp: COMMON NORMALS: normal respiratory effort and clear to auscultation bilaterally AUSCULTATION: clear to auscultation bilaterally Cardio: COMMON NORMALS: no JVD, regular rhythm, S1 normal heart sound present, S2 normal heart sound present and No murmurs present (Cardio) RHYTHM: regular rhythm HEART SOUNDS: S1 normal heart sound present and S2 normal heart sound present GI: COMMON NORMALS: Normal to inspection, nondistended, normoactive bowel sounds present, Soft to palpation and non-tender PALPATION: Yes Soft to palpation Extremity: COMMON NORMALS: no joint enlargement and no pedal edema OTHER: RLE AKA. Stump with healed scars, no open wound, no erythema, no drainage. Neuro: COMMON NORMALS: patient oriented x3 and moves all extremities SENSORIUM/ORIENTATION: Yes alert Skin: COMMON NORMALS: no rashes or lesions noted GENERAL SKIN EXAM: no rashes or lesions noted Data 04/23/23 10:16 04/23/23 10:16 A&P Assessment and plan (1) Chest pain: Assess for possible acute MS, complete troponin EKG series. Troponin noted normal. His symptoms have resolved with some minimal discomfort with. Nitroglycerin as needed. We will assess by CT. Additionally assess CTA PE protocol as discussed with him due to history of DVT, IVC filter. Confirm IVC filter location with CT abdomen pelvis. Aspirin 325 mg for now, long-term switch to 81 mg. Metoprolol. Atorvastatin. Qualifiers: Chest pain type: unspecified Qualified Code(s): R07.9 - Chest pain, unspecified (2) Pre-syncope: Additional assessment as above to exclude PE. Became worse that after standing up, spends most of his time sitting down. Once he is feeling a little bit better we will check orthostatic vital signs. Plan Chronic pain of the right stump: Stump appears unremarkable without any swelling, erythema, open wounds. Continue follow-up as he describes with surgical team at [facility]. We will request documentation from [facility] from recent visits. He states also that he sees a physician up there who manages and undiluted morphine infusion device. He states he cannot remember the name of the physician. States that his mind has been little bit hazy after getting the shot that was given prior to admission. DM2: Hyperglycemia. Continue moderate sliding scale insulin. Add Lantus 10u nightly. Continue CC diet. HTN: Not entirely clear what medications he takes at home. Became orthostatic after standing up, spends most of his time sitting down. May have orthostatic hypotension. Monitor blood pressure. We will see if can confirm home medications. For now add metoprolol as above. History of DVT: Has IVC filter. He is not aware of taking Eliquis. Medications will need to be confirmed. Confirm IVC placement as above as he states that it had dislodged in the past from its original position. COPD: Not in exacerbation HLD IBS Morbid obesity TERA PTSD Traumatic brain injury Other conditions noted as per history Discussed with psychiatry. Psychiatry documentation reviewed. ER documentation reviewed. Consult Attestations Medical Necessity Statement: Continue admission for assessment management of concerns of self-harm or harm to others, additional assessment with regards to episode of chest pain, orthostatic symptom on standing up as above and a gentleman with history of past MS, metabolic syndrome, past history of DVT. Diagnoses Chest pain R07.9 Chest pain type: unspecified Pre-syncope R55
--- NOTE | 2023-04-23 11:58 | ECG_ITS ---
[facility] Test Date: 2023-04-23 Pat Name: Robby Ramirez Department: Room: 153 Gender: Male Residential Worker: : 1975 Requested By: Errol Ramon Order Number: [id number] Emily MD: Vamshi Duckworth M.D. Measurements Intervals [place] Rate: 105 P: 53 MN: 195 QRS: -34 QRSD: 100 T: 28 QT: 341 QTc: 452 Interpretive Statements SINUS TACHYCARDIA LEFT AXIS DEVIATION [QRS AXIS < -30] POSSIBLE ANTERIOR MYOCARDIAL INFARCTION , PROBABLY OLD [30 ms Q WAVE IN V3/V4, OR R < 0.2 mV IN V4] Compared to ECG 04/23/2023 09:56:10 Left-axis deviation now present Myocardial infarct finding now present Sinus rhythm no longer present Electronically Signed On 04-23-2023 15:47:11 CDT by Vamshi Duckworth M.D. [id number]
[2023-04-23] MEDS: iohexol 350 mg/mL 500 mL Btl (per mL) IV (12:22)
[2023-04-23] MEDS: metoprolol tartrate 25 mg Tablet PO ×2 (12:41→21:37)
[2023-04-23] MEDS: aspirin 325 mg Tablet PO (12:41)
[2023-04-23 13:48] LABS: Troponin 5 2HR Delta 0 ABS# (0-10)
[2023-04-23 14:00] VITALS: BP 132/88; PULSE 82; RESP 16; TEMP 36.4; O2SAT 94
[2023-04-23] MEDS: neomycin-poly-bacitracin oint 28 gm 1 APPLIC TOPICAL (15:20)
--- NOTE | 2023-04-23 15:58 | ECG_ITS ---
[facility] Test Date: 2023-04-23 Pat Name: Robby Ramirez Department: Room: 153 Gender: Male Rn Teacher: : 1975 Requested By: Errol Ramon Order Number: [id number] Emily MD: Vamshi Duckworth M.D. Measurements Intervals [place] Rate: 86 P: 15 [place]: 230 QRS: -12 QRSD: 102 T: -1 QT: 360 QTc: 432 Interpretive Statements SINUS RHYTHM WITH FIRST DEGREE AV BLOCK POSSIBLE ANTERIOR MYOCARDIAL INFARCTION , PROBABLY OLD [30 ms Q WAVE IN V3/V4, OR R < 0.2 mV IN V4] Compared to ECG 04/23/2023 12:54:48 First degree AV block now present Sinus tachycardia no longer present Left-axis deviation no longer present Myocardial infarct finding still present Electronically Signed On 04-23-2023 17:30:36 CDT by Vamshi Duckworth M.D. [id number]
[2023-04-23 16:14] VITALS: RESP 16
[2023-04-23 16:15] LABS: Troponin 5 6HR Delta 0 ng/L (0-12)
--- NOTE | 2023-04-23 16:22 | PC.PHAR ---
[facility] - PATIENT WAS ORDERED LOVENOX, HAS USED BEFORE, HEPARIN MADE HIM BLEED FROM EYES
[2023-04-23] MEDS: enoxaparin 120 mg/0.8 mL Syringe SUBCUT (17:24)
[2023-04-23 17:32] LABS: Glucose Point of Care 436 mg/dL (70-110)
[2023-04-23] MEDS: nicotine 4 mg lozenge MUCOUS MEM ×2 (18:58→22:11)
--- NOTE | 2023-04-23 18:59 | PC.NURSE ---
PT STARTED TO BECOME AGITATED WHILE TALKING WITH CLEANER FURNITURE [employer] SANTIAGO. DURING THIS CONVERSATION THIS NURSE OVER HEARD PT STATE I WILL BREAK MY NECK TO GET OUT OF HERE IF I HAVE TOO. THIS NURSE STEPPED IN AND EXPLAINED THAT THOSE TYPE OF THREATS WERE THE REASON HE REQUIRED A 1:1 SITTER AND AN INJECTION YESTERDAY. PT THEN STATED YOU MISUNDERSTOOD ME, I MEANT THAT IF I HURT MYSELF BREAKING DOWN THAT DOOR THEN I WILL. THIS NURSE REPEATED HER EDUCATION, THIS PT IS RESISTANT TO LEARNING AND STATED THAT WE ARE HOLDING HIM AGAINST HIS WILL AND HE WILL HAVE A FEDRAL FIRE SPRINKLER APPARATUS INSPECTOR COME HERE. PT WAS EDUCATED ON THE 96 HOUR HOLD AGAIN AND CONTINUES TO BE RESISTANT TO LEARNING. PT THEN BECAME DISTRACTED BY GETTING NUMBERS OUT OF HIS PHONE AND IS CURRENTLY CALM.
[2023-04-23 20:29] VITALS: BP 124/77; PULSE 93; RESP 18; TEMP 36.7; O2SAT 95
[2023-04-23] MEDS: atorvastatin 40 mg Tablet PO (21:09)
[2023-04-23] MEDS: insulin glargine 100 units/1 mL 10 UNIT SUBCUT (21:11)
--- NOTE | 2023-04-23 21:20 | CTR_ITS ---
PROCEDURE INFORMATION: Exam: CT Head Without Contrast Exam date and time: 04/23/2023 9:59 PM Age: 47 years old Clinical indication: Altered mental status/memory loss; Confusion or disorientation; Patient HX: Reported confusion. Patient had head w/o less than 12 hours ago for near syncope. TECHNIQUE: Imaging protocol: Computed tomography of the head without contrast. Radiation optimization: All CT scans at this facility use at least one of these dose optimization techniques: automated exposure control; mA and/or kV adjustment per patient size (includes targeted exams where dose is matched to clinical indication); or iterative reconstruction. REPORTING DATA: Count of CT and Cardiac NM exams in prior 12 months: This patient has received 0 known CTs and 0 known cardiac nuclear medicine studies in the 12 months prior to the current study. COMPARISON: CT head wo con* [id number] 04/23/2023 11:40 AM RADIATION DOSE METRICS: Total DLP (mGy-cm): 1064.1 FINDINGS: Brain: No acute intracranial hemorrhage, abnormal extra-axial fluid collection, mass effect, or midline shift. Cerebral ventricles: The ventricular system is within normal limits of variation for the patient's age. Paranasal sinuses: Visualized paranasal sinuses are grossly unremarkable. No fluid levels. Mastoid air cells: Visualized mastoid air cells are well aerated. Bones/joints: No acute fracture. Hyperostosis frontals interna. Soft tissues: Grossly unremarkable. CT/CT head wo con* [id number] IMPRESSION: No acute intracranial findings.
[2023-04-23 22:00] VITALS: BP 122/83; PULSE 97; RESP 18; O2SAT 93
[2023-04-23 23:00] VITALS: RESP 17; O2SAT 93
--- NOTE | 2023-04-23 23:13 | PC.NURSE ---
Assessment completed on patient and he had no complaints, then he came to the nurses station and stated he had a headache behind his R eye and felt groggy and in a blur. VS stable, denied CP, dizziness or SOA. Equal hand wilderness guide. Pupils 3mm NINO. Dr Johns called, CT of head ordered w/o contrast. Dr johns notified of CT report. patient showered and given his Dilaudid 2mg
[2023-04-24 06:00] VITALS: BP 139/89; PULSE 84; RESP 17; TEMP 36.4; O2SAT 97
[2023-04-24 09:45] LABS: Glucose Point of Care 296 mg/dL (70-110)
[2023-04-24] MEDS: aspirin 325 mg Tablet PO (09:51)
[2023-04-24] MEDS: metoprolol tartrate 25 mg Tablet PO ×2 (09:51→20:41)
[2023-04-24] MEDS: insulin lispro 100 unit/1 mL SUBCUT ×4 (09:51→20:41)
--- NOTE | 2023-04-24 09:53 | PC.NURSE ---
patient asleep on the floor next to his bed in room, staff member walking by noticed soiled blanket around patient lower half. staff x2 went into room, woke patient up, assisted to BSC so patient could wipe himself clean & change into clean scrub bottoms. blood sugar obtained, scheduled meds given & insulin per sliding scale. assisted to day room via wheelchair & patient given breakfast at this time.
--- NOTE | 2023-04-24 09:55 | PC.NURSE ---
patient uses [facility] for medications
--- NOTE | 2023-04-24 10:13 | PC.NURSE ---
refused to let staff obtain requested ultrasound
--- NOTE | 2023-04-24 10:32 | PC.NURSE ---
up at the desk, stated to staff if ya'll don't let me out of here you'll soon find out I can break glass irritable mood noted, somatic complaints. talking out loud to himself saying how the doctor won't listen to what he has to say so why should he stay here at all
--- NOTE | 2023-04-24 10:44 | PHA.FALL ---
A Pharmacy Consult Was Conducted For Robby Ramirez Due To: [place] Fall Scale Risk Level: High Fall Risk On 04/24/23 08:00 And A Medication Fall Risk Score Greater Than 10. The Recommendations Are As Follows: Pt has numerous PRN medications that put the patient at increased fall risk. Risk vs Benefits of these medications should be evaluated, and use should be limited as much as possible, and the lowest effective dose. High Risk: Haldol - Orthostatic hypotension, slow reflexes, loss of balance Lorazepam - Drowsiness, slows reactions, impaired balance Metoprolol - Bradycardia, hypotension, carotid sinus hypersensitivity, vasovagal syndrome Olanzapine - Orthostatic hypotension, slow reflexes, loss of balance Trazodone - Neurologic: Confusion (up to 5.7% ), Dizziness (25% ), Headache (9.9% to 33% ), Insomnia (6.4% to 9.9% ), Somnolence (23.9% to 46% )
[2023-04-24] MEDS: nicotine 4 mg lozenge MUCOUS MEM ×3 (11:13→19:22)
--- NOTE | 2023-04-24 11:49 | PC.NURSE ---
REFUSED LAB DRAW
[2023-04-24] MEDS: enoxaparin 120 mg/0.8 mL Syringe SUBCUT (13:42)
[2023-04-24 14:00] VITALS: BP 139/89; PULSE 84; RESP 17; TEMP 36.4; O2SAT 96
--- NOTE | 2023-04-24 16:07 | PC.NURSE ---
This nurse called [facility] at . I was informed by staff that the patient filled alprazolam 1mg BID. This was filled 04/13 at [facility] pharmacy, 30 day supply. Lantus solostar was filled, no instructions, on 04/13. On 01/09, Novolog flexpen was not approved by the insurance, so it was not filled. On 02/10, a 7 day supply of oxycodone 10mg was filled, to be administered QID. Per [facility], no meds have been supplied by them, but they can see where meds have been picked up by the patient. The pharmacies the patient has utilized are: [facility] [place].
--- NOTE | 2023-04-24 17:29 | P.NPUPN_ITS ---
Subjective NPU Subjective: Patient presented today reporting that he is doing okay. He was inquisitive about why he was not being discharged. We had long discussion about the inconsistencies in his story as and the fantastical nature of his history and that it is hard not knowing him to make a decision on lethality when he is saying he is safe he is also saying other things that do not appear to be true. He initially admitted that he embellishes his stories and reports he specifically does not not have to think about his true history including the trauma history that initially led to PTSD. We agree with negative the time but it is critical that he was honest about circumstances moving forward. Mental Status Exam MSE Comments: This is an obese white male, in hospital scrubs, with limited grooming and eye contact. 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 No abnormal movements, except for psychomotor retardation. Cooperative with exam in mild distress. Speech was slightly decreased rate and mostly normal volume with slight slurring. Mood described as okay; affect subdued. Thought process, organized. Thought content: patient denied any suicidal or homicidal ideation, there were no delusions reported or noted, patient denied any auditory or visual hallucinations. Attention and concentration were mostly intact, and memory appeared more reliable, but none were formally tested. Alert and oriented times three. Insight and judgment are limited. Impulse control is limited. Vitals/I&O/Wt Last Vital Signs Temp 97.8 F 04/24/23 20:37 Pulse 102 H 04/24/23 20:37 Resp 18 04/24/23 20:37 BP 117/72 04/24/23 20:37 Pulse Ox 95 04/24/23 20:37 O2 Del Method Room Air 04/23/23 22:00 04/24/23 04/24/23 04/25/23 14:59 22:59 06:59 Intake Total Balance Data NPU 04/24/23 20:53 04/24/23 20:53 A&P Assessment and plan (1) Chest pain: Qualifiers: Chest pain type: unspecified Qualified Code(s): R07.9 - Chest pain, unspecified (2) Pre-syncope: (3) Type 2 diabetes mellitus: (4) Obstructive sleep apnea: (5) Asthma exacerbation: (6) COPD (chronic obstructive pulmonary disease): Qualifiers: COPD type: chronic bronchitis Chronic bronchitis type: simple Qualified Code(s): J41.0 - Simple chronic bronchitis (7) CHF (congestive heart failure), NYHA class III: Qualifiers: Congestive heart failure type: unspecified Qualified Code(s): I50.9 - Heart failure, unspecified (8) Hyperlipidemia: (9) Chronic pain syndrome: (10) Hyperglycemia: (11) Cluster B personality disorder in adult: (12) PTSD (post-traumatic stress disorder): Plan This is a 47 -year-old, white male, with a reported history of PTSD and significant anxiety presenting on 18 mg a day of Xanax without significant other medications for mental health challenges and having been unwilling to do the UDS with a very fantastical history with significant concerns for development, possible addiction, and likely personality disorder. 1. Continue current medication. 2. Encourage individual, group, and milieu therapy. 3. Continue q-15-minute checks for safety. 4. Contact with pharmacy in the morning for details of pain management and Xanax prescription. 5. Appreciate hospitalist consult and follow recommendations as indicated. Involuntary Hold Information 96 Hour Hold: 96 Hour Involuntary Admission: Yes 96 Hour Hold Ending Date: 04/27/23 96 Hour Hold Ending Time: 05:17 Attestations NPU Medical Necessity Statement*: Inpatient hospitalization is medically necessary and the clinically appropriate intervention, at this time. We will monitor medications and make changes as indicated. Likely length of stay is 1-3 days. 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
[2023-04-24 18:47] LABS: Glucose Point of Care 357 mg/dL (70-110)
[2023-04-24 20:10] LABS: Glucose Point of Care 341 mg/dL (70-110)
[2023-04-24 20:37] VITALS: BP 117/72; PULSE 102; RESP 18; TEMP 36.6; O2SAT 95
[2023-04-24] MEDS: ALPRAZolam 0.5 mg Tablet 1 MG PO (20:41)
[2023-04-24] MEDS: atorvastatin 40 mg Tablet PO (20:41)
[2023-04-24] MEDS: insulin glargine 100 units/1 mL 10 UNIT SUBCUT (20:42)
[2023-04-24] MEDS: hyDROXYzine 25 mg Capsule 50 MG PO (20:54)
[2023-04-24] MEDS: trazodone 50 mg Tablet PO (20:54)
[2023-04-24 21:05] LABS: Basophils % 0.5 %; Eosinophils # 0.2 10^3/uL (0.0-0.8); Eosinophils % 3.8 %; Hematocrit 42.7 % (42.0-52.0); Lymphocytes # 2.2 10^3/uL (0.8-4.8); Lymphocytes % 36.2 %; Mean Corpuscular HGB Conc 32.8 g/dL (30.0-36.0); Mean Corpuscular Hemoglobin 29.2 pg (28.0-34.0); Mean Platelet Volume 9.7 fL (7.4-10.4); Monocytes # 0.5 10^3/uL (0.2-0.9); Monocytes % 7.8 %; Neutrophils # 3.12 10^3/uL (1.8-7.7); Neutrophils % 51.5 %; Nucleated Red Blood Cells % 0 %; Platelet Count 154 10^3/cmm (130-400); Red Cell Distribution Width 12.8 % (12.1-15.1); White Blood Count 6.1 10^3/uL (4.0-10.0)
[2023-04-24 21:20] LABS: Blood Urea Nitrogen 12 mg/dL (6-20); Calcium 9.2 mg/dL (8.5-10.5); Carbon Dioxide 23 mmol/L (22-29); Chloride 96 mmol/L (98-107); Glomerular Filtration Rate 143.8 mL/min (90-130); Glucose 328 mg/dL (65-115); Osmolality Calculated 289 mOsm/kg (285-295); Sodium 133 mmol/L (136-145)
[2023-04-24 21:26] LABS: Anion Gap 18.5 (5-19); Potassium 4.5 mmol/L (3.5-5.1)
[2023-04-25] MEDS: enoxaparin 120 mg/0.8 mL Syringe SUBCUT ×2 (00:53→14:04)
--- NOTE | 2023-04-25 01:05 | PC.NURSE ---
Entered patient's room and discovered that patient had a wall screw in the corner of his mouth, between his lips. Patient was resting with eyes closed, screw was removed, with second nurse as witness, without incident and placed in evidence.
--- NOTE | 2023-04-25 01:19 | XRR_ITS ---
PROCEDURE INFORMATION: Exam: XR Abdomen Exam date and time: 04/25/2023 1:31 AM Age: 47 years old Clinical indication: Other: Poss fb; Additional info: Missing screws, possible indestion TECHNIQUE: Imaging protocol: Radiologic exam of the abdomen. Views: Frontal supine view of the abdomen. 1 View. COMPARISON: CT abdomen con [id number] 04/23/2023 11:42 AM FINDINGS: Gastrointestinal tract: Fluid-filled bowel loops are seen without overt evidence of obstruction. Intraperitoneal space: Please note that the right hemiabdomen is not included in the field of view. Bones/joints: Unremarkable. Soft tissues: No radiopaque foreign bodies are seen. XR/XR KUB portable [id number] IMPRESSION: No radiopaque foreign bodies are seen. Please note that the right hemiabdomen is not included in the field of view.
--- NOTE | 2023-04-25 01:21 | PC.NURSE ---
Physician and house sup notified of missing screws from soap dispenser that had been pulled off of wall. One on one sitter for patient to monitor for behaviors. KUB to check for possible screw ingestion.
--- NOTE | 2023-04-25 02:08 | PC.NURSE ---
Pt agitated, threatening staff w/harm while trying to complete x-ray series. While searching pt a makeshift shijose was found w/a broken spoon and the rubber brake handle cover in the pant let on his right side. In the back of his shirt the rest of the plastic spoon resided.Pts room strip searched, bedding replaced. Pt required to have a physical search for any remaining weapons. Pt now trying to exit seek stating that he is leaving, the staff better not lay a fucking hand on him I'm not taking any fucking shots I'm going to roxanne every one of you. One on one care and redirection provided. Pt agreeable to taking to IM Geodon, but not haldol it causes the worst affects . Contacted provider regarding escalating difficulties w/pt and behavior. NO received and noted for Geodon 20mg im x 1 dose now. IM Geodon pulled from [facility] and administered per orders.
[2023-04-25] MEDS: water for injection-sterile 10 ML 999 ML (02:13)
[2023-04-25] MEDS: ziprasidone 20 mg/mL SDV IM (02:13)
[2023-04-25 06:00] VITALS: RESP 18
--- NOTE | 2023-04-25 08:30 | PC.NURSE ---
scheduled Insulin held r/t patient sedated, did not get up to eat breakfast
[2023-04-25 08:31] LABS: Glucose Point of Care 280 mg/dL (70-110)
[2023-04-25] MEDS: nicotine 4 mg lozenge MUCOUS MEM ×4 (12:22→20:28)
[2023-04-25] MEDS: aspirin 325 mg Tablet PO (12:32)
[2023-04-25] MEDS: metoprolol tartrate 25 mg Tablet PO ×2 (12:32→20:22)
[2023-04-25] MEDS: ALPRAZolam 0.5 mg Tablet 1 MG PO ×2 (12:33→20:22)
[2023-04-25 12:41] LABS: Glucose Point of Care 260 mg/dL (70-110)
[2023-04-25] MEDS: insulin lispro 100 unit/1 mL SUBCUT ×3 (12:43→20:28)
--- NOTE | 2023-04-25 13:13 | W.PM.NPUPNS ---
Subjective NPU Subjective: Patient presented today continuing intermittently problematic behavior. Last night he had made a shiv out of a spoon. We discussed the fact that these are not the type of behaviors that demonstrated a person is ready for discharge and not needing an extension of the 96-hour hold. He was threatening to not take his diabetes medication if he was not allowed to discharge immediately. We discussed the fact that he was creating a situation where we would need to at least file for a 21-day hold. Mental Status Exam MSE Comments: This is an obese white male, in hospital scrubs, with limited grooming and eye contact. 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 No abnormal movements, except for psychomotor retardation. Cooperative with exam in mild distress. Speech was slightly decreased rate and mostly normal volume with slight slurring. Mood described as okay; affect subdued. Thought process, organized. Thought content: patient denied any suicidal or homicidal ideation, there were no delusions reported or noted, patient denied any auditory or visual hallucinations. Attention and concentration were mostly intact, and memory appeared more reliable, but none were formally tested. Alert and oriented times three. Insight and judgment are limited. Impulse control is limited. Vitals/I&O/Wt Last Vital Signs Temp 97.8 F 04/24/23 20:37 Pulse 102 H 04/24/23 20:37 Resp 18 04/25/23 06:00 BP 117/72 04/24/23 20:37 Pulse Ox 95 04/24/23 20:37 O2 Del Method Room Air 04/23/23 22:00 04/24/23 04/25/23 04/25/23 22:59 06:59 14:59 Intake Total Balance Data NPU 04/24/23 20:53 04/24/23 20:53 A&P Assessment and plan (1) Chest pain: Qualifiers: Chest pain type: unspecified Qualified Code(s): R07.9 - Chest pain, unspecified (2) Pre-syncope: (3) Type 2 diabetes mellitus: (4) Obstructive sleep apnea: (5) Asthma exacerbation: (6) COPD (chronic obstructive pulmonary disease): Qualifiers: COPD type: chronic bronchitis Chronic bronchitis type: simple Qualified Code(s): J41.0 - Simple chronic bronchitis (7) CHF (congestive heart failure), NYHA class III: Qualifiers: Congestive heart failure type: unspecified Qualified Code(s): I50.9 - Heart failure, unspecified (8) Hyperlipidemia: (9) Chronic pain syndrome: (10) Hyperglycemia: (11) Cluster B personality disorder in adult: (12) PTSD (post-traumatic stress disorder): Plan This is a 47 -year-old, white male, with a reported history of PTSD and significant anxiety presenting on 18 mg a day of Xanax without significant other medications for mental health challenges and having been unwilling to do the UDS with a very fantastical history with significant concerns for development, possible addiction, and likely personality disorder. 1. Continue current medication. 2. Encourage individual, group, and milieu therapy. 3. Continue q-15-minute checks for safety. 4. Contacted pharmacy and they only had 1 mg p.o. twice daily of Xanax and no opiates noted. So we discontinued the opiates. 5. Appreciate hospitalist consult and follow recommendations as indicated. 6. It is unclear if he actually wants to discharge or really wants to stay. Involuntary Hold Information 96 Hour Hold: 96 Hour Involuntary Admission: Yes 96 Hour Hold Ending Date: 04/27/23 96 Hour Hold Ending Time: 05:17 Attestations NPU Medical Necessity Statement*: Inpatient hospitalization is medically necessary and the clinically appropriate intervention, at this time. We will monitor medications and make changes as indicated. Likely length of stay is 1-3 days. Will likely follow for 21-day hold but this behavior is likely borderline/cluster B and so want to discharge as soon as he is deemed safe. Coding Level of Care Code Acute Code for [facility] Diagnoses Chest pain R07.9 Chest pain type: unspecified Pre-syncope R55 Type 2 diabetes mellitus E11.9 Obstructive sleep apnea G47.33 Asthma exacerbation J45.901 COPD (chronic obstructive pulmonary disease) J41.0 COPD type: chronic bronchitis Chronic bronchitis type: simple CHF (congestive heart failure), NYHA class III I50.9 Congestive heart failure type: unspecified Hyperlipidemia E78.5 Chronic pain syndrome G89.4 Hyperglycemia R73.9 Cluster B personality disorder in adult F60.9 PTSD (post-traumatic stress disorder) F43.10
[2023-04-25 14:00] VITALS: BP 117/66; PULSE 86; RESP 17; TEMP 36.4; O2SAT 96
[2023-04-25 16:51] LABS: Glucose Point of Care 384 mg/dL (70-110)
--- NOTE | 2023-04-25 16:55 | P.PN_ITS ---
Subjective Subjective: no c/o chest pain. C/o stump pain Medications: Reviewed: Yes Vitals/I&O/Wt Last Vital Signs Temp 97.5 F L 04/25/23 14:00 Pulse 86 04/25/23 14:00 Resp 17 04/25/23 14:00 BP 117/66 04/25/23 14:00 Pulse Ox 96 04/25/23 14:00 O2 Del Method Room Air 04/25/23 14:00 04/25/23 04/25/23 04/25/23 06:59 14:59 22:59 Intake Total Balance Physical Exam Narrative: General: No acute distress, AO x3 HEENT: PERRLA, pupils bilaterally equal and reactive, pallors not present Chest: Normal vesicular breath sounds, no added sounds, equal good air entry bilaterally CVS: S1-S2 regular, no murmurs, no tachycardia, no gallops, no rubs Abdomen: Soft, nontender, no organomegaly, bowel sounds present Neuro: No focal deficits, no facial deformity, AO x3, power 5/5 in all limbs Extremities: right AKA Data 04/24/23 20:53 04/24/23 20:53 A&P Assessment and plan (1) Chest pain: Now resolved EKG without acute ST-T wave changes troponin trend 6--> 6--> 6 CTA negative for PE Ct abdomen shows Infrarenal inferior vena caval filter, located just superior to the confluence of the common iliac veins. 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 previosuly reports being on fondaparinux, unsure why disocntineud or why he is not on DOACs. Currently on lovenox 120mg s/c every 12 hrs ? h/o bleeding which warranted IVC filter placement? Aspirin 325 mg for now, long-term switch to 81 mg. Metoprolol. Atorvastatin. Qualifiers: Chest pain type: unspecified Qualified Code(s): R07.9 - Chest pain, unspecified (2) Pre-syncope: now resolved Plan Chronic pain of the right stump: Stump appears unremarkable without any swelling, erythema, open wounds. Continue follow-up as he describes with surgical team at [facility]. requesting stump sleeve. DM2: Hyperglycemia. Continue moderate sliding scale insulin. Add Lantus 10u nightly. Continue CC diet. HTN: Not entirely clear what medications he takes at home. Became orthostatic after standing up, spends most of his time sitting down. May have orthostatic hypotension. Monitor blood pressure. We will see if can confirm home medications. For now add metoprolol as above. History of DVT: Has IVC filter. He is not aware of taking Eliquis. ? prior contraindications? COPD: Not in exacerbation HLD IBS Morbid obesity TERA PTSD Traumatic brain injury Other conditions noted as per history Discussed with psychiatry. Psychiatry documentation reviewed. ER documentation reviewed. Attestations Medical Necessity Statement*: per admitting Coding Level of Care Code Acute Code for [facility] Diagnoses Chest pain R07.9 Chest pain type: unspecified Pre-syncope R55
[2023-04-25] MEDS: insulin glargine 100 units/1 mL 10 UNIT SUBCUT (20:22)
[2023-04-25] MEDS: atorvastatin 40 mg Tablet PO (20:22)
[2023-04-25 20:34] LABS: Glucose Point of Care 348 mg/dL (70-110)
[2023-04-25 21:13] VITALS: BP 137/91; PULSE 101; RESP 26; TEMP 36.6; O2SAT 94
[2023-04-26] MEDS: enoxaparin 120 mg/0.8 mL Syringe SUBCUT (00:25)
[2023-04-26] MEDS: nicotine 4 mg lozenge MUCOUS MEM ×6 (01:02→19:23)
--- NOTE | 2023-04-26 02:19 | PC.NURSE ---
When completing the pts assessment at the beginning of the shift, he pulled this nurse in to talk to him regarding his PTSD and events that happened last night. While speaking w/this nurse he placed blame on staff and his PTSD. While speaking with the pt he also makes statements that he is friend with the coding educator and that we as a facility should speak with the officer b/c he can vouch for how he is. Pt does state he gets orders from the president, and he is the one to carry out the tasks b/c he's a man . Pt eludes to the fact that he will hurt staff if they approach him wrong, or grab him . Regarding the shiv made by the pt yesterday he states he had no intention of hurting himself or anyone else, but he was going to take the screws from the light switch plate cover as well as break the scanners for the exits. This nurse allowed the pt to voice his concerns, questions answered. One on one care and redirection provided.
[2023-04-26 06:00] VITALS: BP 151/79; PULSE 105; RESP 16; TEMP 36.4; O2SAT 96
[2023-04-26 06:01] LABS: Glucose Point of Care 429 mg/dL (70-110)
--- NOTE | 2023-04-26 06:24 | P.NPUPN_ITS ---
Subjective NPU Subjective: Patient presented today reporting that he was doing okay overall. We discussed his discharge plan and feeling safe and without lethality. He was able to contract for safety today and we discussed the possibility of discharge tomorrow. He continued to be more transparent and less dishonest in the encounter. Mental Status Exam MSE Comments: This is an obese white male, in hospital scrubs, with limited grooming and eye contact. 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 No abnormal movements, except for psychomotor retardation. Cooperative with exam in no acute distress. Speech was slightly decreased rate and mostly normal volume with slight slurring. Mood described as okay; affect subdued. Thought process, organized. Thought content: patient denied any suicidal or homicidal ideation, there were no delusions reported or noted, patient denied any auditory or visual hallucinations. Attention and concentration were mostly intact, and memory appeared more reliable, but none were formally tested. Alert and oriented times three. Insight and judgment are limited. Impulse control is limited. Vitals/I&O/Wt Last Vital Signs Temp 97.6 F 04/26/23 06:00 Pulse 105 H 04/26/23 06:00 Resp 16 04/26/23 06:00 BP 151/79 04/26/23 06:00 Pulse Ox 92 04/26/23 06:00 O2 Del Method Room Air 04/26/23 06:00 Data NPU 04/24/23 20:53 04/24/23 20:53 A&P Assessment and plan (1) Chest pain: Qualifiers: Chest pain type: unspecified Qualified Code(s): R07.9 - Chest pain, unspecified (2) Pre-syncope: (3) Type 2 diabetes mellitus: (4) Obstructive sleep apnea: (5) Asthma exacerbation: (6) COPD (chronic obstructive pulmonary disease): Qualifiers: COPD type: chronic bronchitis Chronic bronchitis type: simple Qualified Code(s): J41.0 - Simple chronic bronchitis (7) CHF (congestive heart failure), NYHA class III: Qualifiers: Congestive heart failure type: unspecified Qualified Code(s): I50.9 - Heart failure, unspecified (8) Hyperlipidemia: (9) Chronic pain syndrome: (10) Hyperglycemia: (11) Cluster B personality disorder in adult: (12) PTSD (post-traumatic stress disorder): Plan This is a 47 -year-old, white male, with a reported history of PTSD and significant anxiety presenting on 18 mg a day of Xanax without significant other medications for mental health challenges and having been unwilling to do the UDS with a very fantastical history with significant concerns for development, possible addiction, and likely personality disorder. 1. Continue current medication. 2. Encourage individual, group, and milieu therapy. 3. Continue q-15-minute checks for safety. 4. Contacted pharmacy and they only had 1 mg p.o. twice daily of Xanax and no opiates noted. So we discontinued the opiates. 5. Appreciate hospitalist consult and follow recommendations as indicated. 6. Tentative plan for discharge tomorrow. Involuntary Hold Information 96 Hour Hold: 96 Hour Involuntary Admission: Yes 96 Hour Hold Ending Date: 04/27/23 96 Hour Hold Ending Time: 05:17 Attestations NPU Medical Necessity Statement*: Inpatient hospitalization is medically necessary and the clinically appropriate intervention, at this time. We will monitor medications and make changes as indicated. Likely length of stay is 1-2 days. Will likely follow for 21-day hold but this behavior is likely borderline/cluster B and so want to discharge as soon as he is deemed safe. Coding Level of Care Code Acute Code for [facility] Fwd Diagnoses Chest pain R07.9 Chest pain type: unspecified Pre-syncope R55 Type 2 diabetes mellitus E11.9 Obstructive sleep apnea G47.33 Asthma exacerbation J45.901 COPD (chronic obstructive pulmonary disease) J41.0 COPD type: chronic bronchitis Chronic bronchitis type: simple CHF (congestive heart failure), NYHA class III I50.9 Congestive heart failure type: unspecified Hyperlipidemia E78.5 Chronic pain syndrome G89.4 Hyperglycemia R73.9 Cluster B personality disorder in adult F60.9 PTSD (post-traumatic stress disorder) F43.10
[2023-04-26 07:51] LABS: Glucose Point of Care 424 mg/dL (70-110)
[2023-04-26] MEDS: metoprolol tartrate 25 mg Tablet PO ×2 (08:21→20:44)
[2023-04-26] MEDS: insulin lispro 100 unit/1 mL SUBCUT ×4 (08:21→20:46)
[2023-04-26] MEDS: aspirin 325 mg Tablet PO (08:21)
[2023-04-26] MEDS: ALPRAZolam 0.5 mg Tablet 1 MG PO ×2 (08:21→20:44)
--- NOTE | 2023-04-26 10:39 | PC.NURSE ---
OT BROUGHT PT COMPRESSION STOCKING FOR AMPUTATED LEG. STOCKING WAS PLACED ON PT HOWEVER, PT STATED THAT IT FELT LIKE IT WAS CUTTING OF CIRCULATION. PT REQUESTED FOR IT TO BE REMOVED.
[2023-04-26 12:01] LABS: Glucose Point of Care 301 mg/dL (70-110)
[2023-04-26 14:00] VITALS: BP 113/74; PULSE 95; RESP 16; TEMP 36.6; O2SAT 96
--- NOTE | 2023-04-26 16:06 | P.PN_ITS ---
Subjective Subjective: no new complaints. Will be provided with stump sleeve today, requesting cushion for his wheelchair Medications: Reviewed: Yes Vitals/I&O/Wt Last Vital Signs Temp 97.9 F 04/26/23 14:00 Pulse 95 04/26/23 14:00 Resp 16 04/26/23 14:00 BP 113/74 04/26/23 14:00 Pulse Ox 96 04/26/23 14:00 O2 Del Method Room Air 04/26/23 06:00 Physical Exam Narrative: General: No acute distress, AO x3 HEENT: PERRLA, pupils bilaterally equal and reactive, pallors not present Chest: Normal vesicular breath sounds, no added sounds, equal good air entry bilaterally CVS: S1-S2 regular, no murmurs, no tachycardia, no gallops, no rubs Abdomen: Soft, nontender, no organomegaly, bowel sounds present Neuro: No focal deficits, no facial deformity, AO x3, power 5/5 in all limbs Extremities: right AKA Data 04/24/23 20:53 04/24/23 20:53 A&P Assessment and plan (1) Chest pain: Now resolved EKG without acute ST-T wave changes troponin trend 6--> 6--> 6 CTA negative for PE Ct abdomen shows Infrarenal inferior vena caval filter, located just superior to the confluence of the common iliac veins. 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 previously reports being on fondaparinux for 3 months Reports that a/c was dicontinued at 3 months as it was a provoked DVT. He used to be on injectable testosterone and it was presumed that DVT was hormone induced. testosterone injections were discontinued and a/c was additionally discontinued IVC filter was placed due to clot buren in lower extremities Currently on lovenox 120mg s/c every 12 hrs started during rapid response , can be discontinued today given no evidence of AR or PE Aspirin 325 mg can continue Qualifiers: Chest pain type: unspecified Qualified Code(s): R07.9 - Chest pain, unspecified (2) Pre-syncope: now resolved Plan Chronic pain of the right stump: Stump appears unremarkable without any swelling, erythema, open wounds. Continue follow-up as he describes with surgical team at [facility]. requesting stump sleeve which will be provided today. DM2: Hyperglycemia. Uncontrolled. Increase lantus to 15 U at night. Continue high dose sliding scale insulin. HTN: currently well controlled History of DVT: Has IVC filter. provoked DVT, treated for 3 months. COPD: Not in exacerbation HLD IBS Morbid obesity TERA PTSD Traumatic brain injury Discussed with psychiatry. Attestations Medical Necessity Statement*: per admitting Coding Level of Care Code Acute Code for [facility] Diagnoses Chest pain R07.9 Chest pain type: unspecified Pre-syncope R55
[2023-04-26 20:29] LABS: Glucose Point of Care 487 mg/dL (70-110)
[2023-04-26] MEDS: insulin glargine 100 units/1 mL 15 UNIT SUBCUT (20:43)
[2023-04-26] MEDS: atorvastatin 40 mg Tablet PO (20:44)
[2023-04-26 20:50] VITALS: BP 126/79; PULSE 101; RESP 18; TEMP 36.6; O2SAT 96
--- NOTE | 2023-04-27 03:41 | PC.NURSE ---
Pt came to this nurses station stating I just threw up on the side of my bed and in the floor it's blood I know what iron tastes like . This nurse inspected the emesis, it consists of undigested food and a right red. Pt has had fruit punch to drink earlier in the shift. No dark red blood noted, no coffee ground appearance. Will con't to monitor.
[2023-04-27] MEDS: ondansetron 4 MG Tablet PO (03:46)
[2023-04-27] MEDS: nicotine 4 mg lozenge MUCOUS MEM ×4 (04:53→16:53)
[2023-04-27 06:00] VITALS: BP 125/86; PULSE 109; RESP 17; TEMP 36.8; O2SAT 94
[2023-04-27 08:30] LABS: Glucose Point of Care 280 mg/dL (70-110)
[2023-04-27] MEDS: metoprolol tartrate 25 mg Tablet PO (08:57)
[2023-04-27] MEDS: ALPRAZolam 0.5 mg Tablet 1 MG PO (08:57)
[2023-04-27] MEDS: aspirin 325 mg Tablet PO (08:57)
[2023-04-27] MEDS: insulin lispro 100 unit/1 mL SUBCUT ×2 (08:58→12:24)
[2023-04-27 12:14] LABS: Glucose Point of Care 361 mg/dL (70-110)
[2023-04-27 14:00] VITALS: BP 122/75; PULSE 96; RESP 16; TEMP 37.1; O2SAT 93
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
[2023-04-27 15:02] VITALS: BP 122/75; PULSE 96; RESP 16; TEMP 37.1; O2SAT 93
--- NOTE | 2023-04-27 16:12 | DCPLANNER ---
IMM completed on 04/27/23 @ 2562. Pt was given a copy of rights and stated he understood his rights.
--- NOTE | 2023-04-27 17:37 | PM.MISC ---
Miscellaneous Note Purpose of Documentation: discharge insulin recommendations: Insulin Lantus 15 U at bedtime Insulin lispro 10 U tid pre meal Follow up with PCP in one week pens ordered to pharmacy. He has a glucometer
== END 2023-04-27 17:35 | disposition home or self-care (01) | DRG 883 ==
LOC: ER 05:16 → NP 05:34
PROVIDERS: Family Medicine; Internal Medicine; Admitting Provider Psychiatry & Neurology Psychiatry; Emergency Provider Emergency Medicine; PCP Registered Nurse; Visit Provider Psychiatry & Neurology Psychiatry
DX: F60.89 Other specific personality disorders (principal); R45.851 Suicidal ideations; T87.9 Unspecified complications of amputation stump; R45.850 Homicidal ideations; Z89.611 Acquired absence of right leg above knee; F17.220 Nicotine dependence, chewing tobacco, uncomplicated; F41.9 Anxiety disorder, unspecified; Z87.820 Personal history of traumatic brain injury; Z95.828 Presence of other vascular implants and grafts; E11.65 Type 2 diabetes mellitus with hyperglycemia; F43.10 Post-traumatic stress disorder, unspecified; I10 Essential (primary) hypertension; G89.4 Chronic pain syndrome; J41.0 Simple chronic bronchitis; I25.10 Atherosclerotic heart disease of native coronary artery without angina pectoris; Z86.718 Personal history of other venous thrombosis and embolism; Z86.711 Personal history of pulmonary embolism; E78.5 Hyperlipidemia, unspecified; G47.33 Obstructive sleep apnea (adult) (pediatric); E66.01 Morbid (severe) obesity due to excess calories; Z68.33 Body mass index [BMI] 33.0-33.9, adult; R55 Syncope and collapse; I25.2 Old myocardial infarction; R07.9 Chest pain, unspecified; Y83.8 Other surgical procedures as the cause of abnormal reaction of the patient, or of later complication, without mention of misadventure at the time of the procedure
CPT/HCPCS: 36415; 36416; 70450; 71045; 71275; 74018; 74150; 80048; 80053; 80306; 80307; 82962; 84484; 85025; 93005; 96360; 96372; 97150; 97165; 99239; 99285; J1650; J1815; J3486; J7030; Q0162; Q9967

== ENCOUNTER 2023-06-02 13:03 | Emergency (ER) | payer MEDICARE, MEDICAID, SELFPAY ==
[2023-06-02] VITALS (7 sets, daily range): BP systolic 147–219; BP diastolic 93–147; PULSE 100–123; RESP 16–23; TEMP 36.8; O2SAT 91–97
--- NOTE | 2023-06-02 13:23 | ED_ITS ---
HPI - Arrhythmia/Palpitations General: Chief Complaint: Arrhythmia/Palpitations Stated Complaint: irregular heart rate Time Seen by Provider: 06/02/23 13:12 History of Present Illness: Mr. Ramirez is a 47-year-old gentleman with complex past medical including COPD, CHF, hypertension, hyperlipidemia, tachycardia presenting to the emergency department for evaluation of high heart rate. He notes history of tachycardia but typically relatively short-lived. He end a longer episode last night took medication was able to sleep. Today he after exerting himself he had another episode which has been more persistent. Notes associated generalized malaise and family noticed pallor. Moderate intensity. Persistent course. No other specific changes in health, exacerbating, or alleviating factors identified. Onset (ago): hour(s) Context: occurred during exertion Arrhythmia history: SVT Review of Systems General: Reports: 10 or more systems reviewed and unremarkable except in HPI and below PFSH ED PFSH: Medical History CHF (congestive heart failure), NYHA class III Chronic pain syndrome COPD (chronic obstructive pulmonary disease) History of coronary artery disease HTN (hypertension) Hx of deep venous thrombosis Hx pulmonary embolism Hyperlipidemia IBS (irritable bowel syndrome) Male circumcision Morbid obesity Myocardial infarct, old Obstructive sleep apnea Paraplegia PTSD (post-traumatic stress disorder) Traumatic brain injury Type 2 diabetes mellitus Surgical History History of back surgery S/P appendectomy S/P cholecystectomy S/P IVC filter S/P sinus surgery Social History Smoking and tobacco status: never smoked Alcohol intake: current Alcohol intake frequency: holidays/special occasions only Substance/Drug Use: never Current occupational status: disabled Current gender identity: Male Physical Exam Const: COMMON NORMALS: alert GENERAL APPEARANCE: cooperative and well developed HENMT: COMMON NORMALS: normocephalic and atraumatic HEAD & SCALP: normocephalic and atraumatic Eye: COMMON NORMALS: conjunctivae normal CONJUNCTIVA: Yes conjunctivae normal SCLERA: sclerae normal Neck/C-Spine: COMMON NORMALS: supple GENERAL: Yes trachea midline Resp: COMMON NORMALS: normal respiratory effort EFFORT & INSPECTION: Yes able to speak in complete sentences Cardio: COMMON NORMALS: regular rhythm RATE: tachycardic RHYTHM: regular rhythm GI: COMMON NORMALS: Soft to palpation PALPATION: Yes Soft to palpation and No Tenderness to palpation present (GI) Extremity: NARRATIVE EXTREMITY EXAM: Prior right lower extremity amputation GENERAL: Yes normal exam except as noted and No edema Neuro: COMMON NORMALS: moves all extremities SENSORIUM/ORIENTATION: Yes alert and No Orientation impaired Psych: COMMON NORMALS: mental status grossly normal and Normal thought process present THOUGHT PROCESS: Normal thought process present Course Vital Signs: Vital signs: Vital Signs Temperature 98.2 F 06/02/23 13:14 Pulse Rate 104 H 06/02/23 17:14 Respiratory Rate 18 06/02/23 17:14 Blood Pressure 152/93 06/02/23 17:14 Pulse Oximetry 97 06/02/23 17:14 Oxygen Delivery Me thod Room Air 06/02/23 13:14 MDM - Arrhythmia/Palpitations Medical Decision Making 47-year-old gentleman with known history of tachycardia presenting with tachycardia and anxiety. Nontoxic. EKG demonstrates sinus tachycardia with left axis deviation, no STEMI. No significant hematologic abnormality. Metabolic panel with mild hypomagnesemia. Hyperglycemia without DKA. EKG demonstrates no lobar consolidation or pneumothorax. Treated with metoprolol, magnesium supplementation, IV fluids and improved. Patient is not currently on anything for tachycardia and therefore will be initiated on metoprolol. The results of ED evaluation were discussed with the patient including prescriptions and/or symptomatic cares (if applicable) including appropriate and responsible use, followup plan, and return precautions. The patient verbalized understanding and felt safe for discharge. Medical Records I reviewed the patient's medical records. Lab Data I reviewed the patient's lab results. 06/02/23 14:11 06/02/23 14:11 Radiology Impressions Chest X-Ray 06/02/23 13:30 Impression: Negative chest. Laboratory Results WBC 6.5 10^3/uL (4.0-10.0) 06/02/23 14:11 RBC 5.11 10^6/uL (4.1-5.3) 06/02/23 14:11 Hgb 15.2 g/dL (11.7-16.6) 06/02/23 14:11 Hct 45.2 % (42.0-52.0) 06/02/23 14:11 MCV 88.5 fl (80-94) 06/02/23 14:11 MCH 29.7 pg (28.0-34.0) 06/02/23 14:11 MCHC 33.6 g/dL (30.0-36.0) 06/02/23 14:11 RDW 13.2 % (12.1-15.1) 06/02/23 14:11 Plt Count 172 10^3/cmm (130-400) 06/02/23 14:11 MPV 9.0 fL (7.4-10.4) 06/02/23 14:11 Neut % (Auto) 46.8 % 06/02/23 14:11 Lymph % (Auto) 38.7 % 06/02/23 14:11 [place] % (Auto) 8.9 % 06/02/23 14:11 Eos % (Auto) 4.3 % 06/02/23 14:11 Baso % (Auto) 1.1 % 06/02/23 14:11 Neut # (Auto) 3.05 10^3/uL (1.8-7.7) 06/02/23 14:11 Lymph # (Auto) 2.5 10^3/uL (0.8-4.8) 06/02/23 14:11 [place] # (Auto) 0.6 10^3/uL (0.2-0.9) 06/02/23 14:11 Eos # (Auto) 0.3 10^3/uL (0.0-0.8) 06/02/23 14:11 Baso # (Auto) 0.1 10^3/uL (0.0-0.1) 06/02/23 14:11 Nucleated RBC % (auto) 0 % 06/02/23 14:11 Nucleated RBCs # 0.0 /100WBC 06/02/23 14:11 Sodium 139 mmol/L (136-145) 06/02/23 14:11 Potassium 4.1 mmol/L (3.5-5.1) 06/02/23 14:11 Chloride 104 mmol/L (98-107) 06/02/23 14:11 Carbon Dioxide 22 mmol/L (22-29) 06/02/23 14:11 Anion Gap 17.1 (5-19) 06/02/23 14:11 BUN 16 mg/dL (6-20) 06/02/23 14:11 Creatinine 0.6 mg/dL (0.7-1.2) L 06/02/23 14:11 GFR Calculation 143.8 mL/min (90-130) H 06/02/23 14:11 Glucose 421 mg/dL (65-115) H 06/02/23 14:11 POC Glucose 432 mg/dL (70-110) H 06/02/23 13:47 Calculated Osmolality 307 mOsm/kg (285-295) H 06/02/23 14:11 Calcium 9.5 mg/dL (8.5-10.5) 06/02/23 14:11 Magnesium 1.6 mg/dL (1.7-2.3) L 06/02/23 14:11 Total Bilirubin 0.3 mg/dL (0.15-1.2) 06/02/23 14:11 AST 18 U/L (0-40) 06/02/23 14:11 ALT 34 U/L (0-41) 06/02/23 14:11 Alkaline Phosphatase 94 U/L (40-130) 06/02/23 14:11 Troponin T Baseline 6 ng/L (0-15) 06/02/23 14:11 Troponin T 120 Minute 6.00 ng/L (0-15) 06/02/23 15:59 Delta Troponin T 0 ABS# (0-10) 06/02/23 15:59 NT-Pro-B Natriuret Pep 70 pg/mL (0-125) 06/02/23 14:11 Total Protein 7.5 g/dL (6.6-8.7) 06/02/23 14:11 Albumin 4.1 g/dL (3.5-5.2) 06/02/23 14:11 Globulin 3.4 g/dL (1.3-4.6) 06/02/23 14:11 Discharge Plan Discharge Patient Disposition: Home Clinical Impression: Sinus tachycardia, Hypomagnesemia, Hyperglycemia Condition: Stable Prescriptions: New metoprolol tartrate 25 mg tablet 25 mg PO BID Qty: 60 0RF No Action (DME) blood-glucose meter [Accu-Chek Breanna Plus Meter] Misc See Rx Instructions .ROUTE .MEDSUPPLY Qty: 1 0RF Rx Instructions: Daily (DME) lancets [Accu-Chek Multiclix Lancet] Misc See Rx Instructions .ROUTE .MEDSUPPLY Qty: 100 3RF Rx Instructions: three times daily amlodipine 5 mg tablet 5 mg PO DAILY Qty: 30 0RF (DME) custom wheelchair [id number] with pressure relief cushion See Rx Instructions .Route .MEDSUPPLY Qty: 1 0RF Rx Instructions: As directed. Elizabeth [email or web address] Attn: Shiva ([facility] [place]) Accu-Chek Breanna Plus test strp Strip See Rx Instructions .ROUTE .MEDSUPPLY Qty: 100 3RF Rx Instructions: three times daily Humalog Mix 75-25(U-100)Insuln 100 unit/mL (75-25) suspension 10 unit SUBCUT DAILY Qty: 10 0RF (DME) BD Insulin Syringe U-500 1/2 mL 31 gauge x 15/64 syringe See Rx Instructions .Route Qty: 100 5RF Rx Instructions: As directed ([facility] [place]) blood-glucose meter [Blood Glucose Monitoring] Kit See Rx Instructions miscellaneous .MEDSUPPLY Qty: 1 0RF Rx Instructions: As directed ([facility] [place]) Blood Glucose Test Strip See Rx Instructions miscellaneous .MEDSUPPLY Qty: 100 3RF Rx Instructions: As directed; to test 3x day (DME) pen needle, diabetic [Comfort EZ Pen [place]] 31 gauge x 1/4 needle See Rx Instructions .ROUTE .MEDSUPPLY Qty: 100 2RF Rx Instructions: two times daily alprazolam 1 mg tablet 1 mg PO BID PRN (Reason: Anxiety) Humulin R Regular U-100 Insuln 100 unit/mL solution See Rx Instructions .ROUTE .COMPLEX Rx Instructions: 2 UNITS SUB Q THREE TIMES DAILY PER SLIDING SCALE. MAX 20 UNITS DAILY tizanidine 4 mg tablet 4 mg PO BEDTIME PRN (Reason: muscle spasticity) Discharge Orders: Discharge ED (Routine); Ordered 06/02/23 Ordered By: Javier Nevarez Referrals: Rod Dubose FNP [Primary Care Provider] - Discharge Diet: Usual diet Discharge Activity: Resume usual activity Patient Instructions: Diabetic Hyperglycemia (ED), Tachycardia (ED) Activity Restrictions/Additional Instructions: Thank you for visiting the emergency department. You were seen about for elevated heart rate. The exact cause of the symptoms is unclear however does not appear to need hospitalization at this time. I will prescribe metoprolol. Please also follow-up with your primary care provider. I will order additional outpatient testing and cardiology follow-up. Return for anything that you are concerned about and feel needs emergency dep artment evaluation Coding Level of Care Code ED Extrusion Die Template Maker for Tori Rey
--- NOTE | 2023-06-02 13:30 | XR_ITS ---
WS: [id number] Portable AP upright chest, 06/02/2023 Clinical Data: cp, palpitations Comparison: Portable chest, 04/21/2023 Findings: No nodules, masses or effusions are seen. The heart is normal. The pulmonary vascularity is not increased. No pneumonia or pneumothorax is seen. XR/XR chest 1V portable [id number] Impression: Negative chest.
--- NOTE | 2023-06-02 13:30 | ECG_ITS ---
[facility] Test Date: 2023-06-02 Pat Name: Robby Ramirez Department: Room: Gender: Male Sr. Pricing Analyst: : 1975 Requested By: Javier Nevarez Order Number: [id number] Emily MD: Tammi Lubin M.D. Measurements Intervals [place] Rate: 125 P: 44 NM: 172 QRS: -11 QRSD: 99 T: 73 QT: 304 QTc: 439 Interpretive Statements SINUS TACHYCARDIA POSSIBLE ANTERIOR MYOCARDIAL INFARCTION , OF INDETERMINATE AGE [30 ms Q WAVE IN V3/V4, OR R < 0.2 mV IN V4] Compared to ECG 04/23/2023 17:23:28 Sinus rhythm no longer present First degree AV block no longer present Myocardial infarct finding still present Electronically Signed On 06-02-2023 13:54:24 CDT by Tammi Lubin M.D. [email or web address]
[2023-06-02 13:50] LABS: Glucose Point of Care 432 mg/dL (70-110)
[2023-06-02 14:24] LABS: Basophils # 0.1 10^3/uL (0.0-0.1); Basophils % 1.1 %; Eosinophils # 0.3 10^3/uL (0.0-0.8); Eosinophils % 4.3 %; Hematocrit 45.2 % (42.0-52.0); Hemoglobin 15.2 g/dL (11.7-16.6); Lymphocytes # 2.5 10^3/uL (0.8-4.8); Lymphocytes % 38.7 %; Mean Corpuscular HGB Conc 33.6 g/dL (30.0-36.0); Mean Corpuscular Hemoglobin 29.7 pg (28.0-34.0); Mean Corpuscular Volume 88.5 fl (80-94); Monocytes # 0.6 10^3/uL (0.2-0.9); Monocytes % 8.9 %; Neutrophils # 3.05 10^3/uL (1.8-7.7); Neutrophils % 46.8 %; Nucleated Red Blood Cells % 0 %; Platelet Count 172 10^3/cmm (130-400); Red Blood Count 5.11 10^6/uL (4.1-5.3); Red Cell Distribution Width 13.2 % (12.1-15.1); White Blood Count 6.5 10^3/uL (4.0-10.0)
[2023-06-02] MEDS: sodium chloride 0.9% 1,000 ML 999 ML IV (14:46)
--- NOTE | 2023-06-02 14:51 | PC.NURSE ---
PT PLACED ON CONTINUOUS NIBP,SPO2, AND CM
[2023-06-02 15:09] LABS: Troponin(5th) Baseline 6 ng/L (0-15)
--- NOTE | 2023-06-02 15:16 | PC.NURSE ---
PT AMBULATED. GAIT BELT IN PLACE. PT AMBULATED APPROX 50 FT. PT AMBULATED STEADILY. PT LIMPING ON RIGHT LEG. PT STATES SHE FRACTURED HER RIGHT ANKLE A MONTH AGO. BRACE IN PLACE.
[2023-06-02 15:19] LABS: Alanine Aminotransferase 34 U/L (0-41); Albumin Level 4.1 g/dL (3.5-5.2); Alkaline Phosphatase 94 U/L (40-130); Anion Gap 17.1 (5-19); Aspartate Amino Transferase 18 U/L (0-40); Blood Urea Nitrogen 16 mg/dL (6-20); Calcium 9.5 mg/dL (8.5-10.5); Carbon Dioxide 22 mmol/L (22-29); Chloride 104 mmol/L (98-107); Globulin 3.4 g/dL (1.3-4.6); Glomerular Filtration Rate 143.8 mL/min (90-130); Glucose 421 mg/dL (65-115); Magnesium 1.6 mg/dL (1.7-2.3); NT Pro B Type Natriuretic Pept 70 pg/mL (0-125); Osmolality Calculated 307 mOsm/kg (285-295); Potassium 4.1 mmol/L (3.5-5.1); Sodium 139 mmol/L (136-145); Total Bilirubin 0.3 mg/dL (0.15-1.2); Total Protein 7.5 g/dL (6.6-8.7)
--- NOTE | 2023-06-02 15:40 | ECG_ITS ---
[facility] Test Date: 2023-06-02 Pat Name: Robby Ramirez Department: Room: Gender: Male Green Marketer: : 1975 Requested By: Javier Nevarez Order Number: [id number] Emily MD: Tammi Lubin M.D. Measurements Intervals [place] Rate: 122 P: 38 ID: 175 QRS: -22 QRSD: 96 T: 76 QT: 318 QTc: 454 Interpretive Statements SINUS TACHYCARDIA POSSIBLE ANTERIOR MYOCARDIAL INFARCTION , OF INDETERMINATE AGE [30 ms Q WAVE IN V3/V4, OR R < 0.2 mV IN V4] Compared to ECG 06/02/2023 13:52:29 No significant changes Electronically Signed On 06-02-2023 22:59:59 CDT by Tammi Lubin M.D. [email or web address]
[2023-06-02] MEDS: metoprolol tartrate 1 mg/1 mL SDV 5 mL 5 MG IVP (15:50)
[2023-06-02] MEDS: magnesium sulfate premix 2 GM/50 ML PIGGYBACK IV (15:50)
[2023-06-02 16:41] LABS: Troponin 5 2HR Delta 0 ABS# (0-10)
--- NOTE | 2023-06-05 13:50 | DCPLANNER ---
Addendum entered by Elizabeth Blackwell 06/07/23 12:30: Patient has a follow up appointment scheduled for Monday, July 10, 2023 at 10:[address] Lubin at [facility]. Original Note: case managers had message to schedule a follow up appointment for patient with cardiology. case managers sent patients information to the front office staff at [facility]. Patients information will be printed and reviewed. Clinic will call patient with appointment information.
--- NOTE | 2023-06-05 13:51 | DCPLANNER ---
Addendum entered by Elizabeth Blackwell 06/20/23 15:06: Patient did not attend echo. Addendum entered by Elizabeth Blackwell 06/07/23 08:29: Patient has an outpatient echo scheduled for Friday, June 16, 2023 at 1:30. Original Note: valet manager had message to schedule an outpatient echo cardiogram for patient. valet manager faxed signed order to centralized scheduling, who will call patient with appointment information.
== END 2023-06-02 17:15 | disposition home or self-care (01) ==
PROVIDERS: Emergency Provider Emergency Medicine; PCP Registered Nurse
DX: R00.0 Tachycardia, unspecified (principal); E83.42 Hypomagnesemia; E11.65 Type 2 diabetes mellitus with hyperglycemia; Z79.4 Long term (current) use of insulin; I11.0 Hypertensive heart disease with heart failure; I50.9 Heart failure, unspecified; J44.9 Chronic obstructive pulmonary disease, unspecified; I25.10 Atherosclerotic heart disease of native coronary artery without angina pectoris; E78.5 Hyperlipidemia, unspecified; I25.2 Old myocardial infarction
CPT/HCPCS: 36415; 36416; 71045; 80053; 82962; 83735; 83880; 84484; 85025; 93005; 96365; 96375; 99285; J3475; J3490; J7030